=== PATIENT | female | born 1995 | race Caucasian/White ===

== ENCOUNTER → 2023-10-23 | Outpatient (CLI) | payer OTHER, SELFPAY ==
[2023-10-23 11:54] LABS: Estradiol 58.9 pg/mL; Follicle Stimulating Hormone 5.4 mIU/mL; Free T3 3.1 pg/mL (2.18-3.98); Luteinizing Hormone 18.6 mIU/mL; T4 Free Direct 0.96 ng/dL (0.76-1.46); Thyroid Stim Hormone (TSH) 0.49 uIU/mL (0.358-3.74)
[2023-10-24 04:07] LABS: PROGESTERONE 0.3 ng/mL (.)
== END | disposition home or self-care (01) ==
PROVIDERS: PCP Family Medicine
DX: N92.6 Irregular menstruation, unspecified (principal)
CPT/HCPCS: 36415; 82670; 83001; 83002; 84144; 84439; 84443; 84481

== ENCOUNTER → 2023-10-28 | Outpatient (CLI) | payer OTHER, SELFPAY ==
--- NOTE | 2023-10-28 15:14 | US_ITS ---
STUDY: ULTRASOUND OF THE FEMALE PELVIS - COMPLETE REASON FOR EXAM: Female, 28 years old. IRREGULAR MENSES LMP: August 21, 2023. TECHNIQUE: Transvaginal TECHNICAL QUALITY: Adequate. COMPARISON: None. FINDINGS: The uterus is anteverted and is in a midline position. The uterus measures 7.6 cm x 3.8 cm x 3.1 cm. Normal uterine cervix. The endometrium measures 5.2 mm in thickness, and is hyperechoic. There is no demonstrated endometrial mass. There is no demonstrated myometrial mass. I.U.D. - The patient does not have an I.U.D. The right ovary is visualized. The right ovary measures 3.2 cm x 3.1 cm x 2.5 cm. There is no right ovarian cyst or ovarian mass. There is no visualized right adnexal mass or complex lesion. There is normal arterial and normal venous vascularity. The left ovary is visualized. The left ovary measures 3.4 cm x 3.3 cm x 2.3 cm. There is no left ovarian cyst or ovarian mass. There is no visualized left adnexal mass or complex lesion. There is normal arterial and normal venous vascularity. There is no fluid in the cul-de-sac. US/Transvaginal Non- IMPRESSION: Normal female pelvis. Electronically Signed: Ky Pina MD at 14:01 EDT ,
== END | disposition home or self-care (01) ==
PROVIDERS: PCP Family Medicine
DX: N92.6 Irregular menstruation, unspecified (principal)
CPT/HCPCS: 76830

== ENCOUNTER → 2023-10-31 | Outpatient (CLI) | payer OTHER, SELFPAY ==
[2023-10-31 10:28] LABS: Prolactin 13.3 ng/mL
== END | disposition home or self-care (01) ==
LOC: PAVLAB 09:42
PROVIDERS: PCP Family Medicine
DX: N92.6 Irregular menstruation, unspecified (principal)
CPT/HCPCS: 36415; 84146; 84403

== ENCOUNTER → 2023-11-21 | Outpatient (CLI) | payer OTHER, SELFPAY | END | disposition home or self-care (01) | PROVIDERS: PCP Family Medicine | DX: N92.6 Irregular menstruation, unspecified (principal) | CPT/HCPCS: 36415; 82627; 82626 ==

== ENCOUNTER → 2024-01-07 | Outpatient (CLI) | payer OTHER, SELFPAY ==
[2024-01-07 10:34] LABS: Anion Gap 7 (5-15); BUN 14 mg/dL (7-18); BUN/Creat Ratio 14.8 RATIO (10-20); Calcium,Total 9.2 mg/dL (8.5-10.1); Chloride 105 mmol/L (98-107); Cholesterol 196 mg/dL (200); Creatinine, Serum 0.95 mg/dL (0.55-1.02); EST Glomerular Filtration Rate 76 mL/min (>60); Est Glom Filt Rate - Afr Amer 91 mL/min (>60); Glucose 96 mg/dL (74-106); High Density Lipoprotein 102 mg/dL; Potassium 3.9 mmol/L (3.5-5.1); Sodium Level 137 mmol/L (136-145); Triglycerides 45 mg/dL; Very Low Density Lipoprotein 9 mg/dL (5-40)
[2024-01-10 18:08] LABS: Androstenedione 202 ng/dL (41-262); Insulin Level 7.8 uIU/mL (2.6-24.9); Testosterone Free 2.6 pg/mL (0.0-4.2); Thyroid Peroxidase AB 10 IU/mL (0-34)
[2024-01-11 11:08] LABS: 17-Hydroxyprogesterone 68 ng/dL (.); PROGESTERONE 0.2 ng/mL (.)
== END | disposition home or self-care (01) ==
PROVIDERS: PCP Family Medicine
DX: E88.810 Metabolic syndrome (principal); E04.0 Nontoxic diffuse goiter; N92.6 Irregular menstruation, unspecified; E28.1 Androgen excess
CPT/HCPCS: 36415; 80048; 80061; 82157; 82533; 83498; 83525; 84144; 84402; 86376

== ENCOUNTER 2024-01-16 18:19 | Emergency (ER) | payer OTHER, SELFPAY ==
[2024-01-16 18:19] VITALS: BP 129/89; PULSE 99; RESP 18; TEMP 36.6; O2SAT 100; BMI 26.1
[2024-01-16 19:21] VITALS: BP 120/70; PULSE 64; RESP 16; TEMP 36.9; O2SAT 99
[2024-01-16 19:23] LABS: Mucous, Urine 0 SEEN /hpf (<or=2+)
[2024-01-16 19:54] LABS: Color, Urine Straw (Yellow); Glucose, Dipstick Normal (Normal); Ketone-Dipstick 5 mg/dl (Negative); Leukocyte Esterase-Dipstick 25 /ul (Negative); Nitrite-Dipstick Negative (Negative); Occult Blood-Urine 10 /ul (Negative); Protein-Dipstick 15 mg/dl (Negative); Urine Bilirubin Dipstick Negative (Negative); Urine Clarity Sl. Cloudy (Clear); Urine Urobilinogen Normal (Normal); Urine pH 6.5 (5.0 - 8.0)
[2024-01-16 20:00] VITALS: BP 122/70; PULSE 67; RESP 16; TEMP 36.6; O2SAT 98
[2024-01-16 20:03] LABS: Squamous Epithelial Cells - UA 0-5 SEEN /hpf (5-10)
[2024-01-16 20:04] LABS: Bacteria 1+ /hpf (None Seen); Red Blood Cells-Urine 0-5 SEEN /hpf (0-5); White Blood Cells 5-10 SEEN /hpf (0-5)
[2024-01-16 20:07] LABS: Internal QC Validated? YES +Cl - CLEAR BKGD; Pregnancy, Serum, hCG Quali. NEGATIVE Negative; Record Kit Lot#, Serum Preg. 772476
[2024-01-16] MEDS: Ketorolac 15 MG/ML Vial IV (20:15)
[2024-01-16 20:23] LABS: Absolute Lymphocyte Count 2.18 X10^3/uL (0.83-4.51); Absolute Neutrophil Count 6.8 X10^3/uL (2.0-7.7); Basophil# 0.05 X10^3/uL; Basophil% 0.5 % (0-1); Eosinophil# 0.06 X10^3/uL; Eosinophils% 0.6 % (0-5); Hematocrit 38.5 % (37-47); Hemoglobin 12.8 g/dL (12.0-15.0); Lymphocyte # 2.18 X10^3/ul (0.83-4.51); Lymphocyte % 21.5 % (19-41); Mean Corp Hgb Conc 33.2 g/dL (32-36); Mean Corpuscular Volume 90.4 fL (81-99); Mean Platelet Vol. 9.9 fl (6.2-12.0); Monocyte# 1.05 X10^3/uL; Monocyte% 10.4 % (0-10); NRBC Flagged by Analyzer 0 % (0-5); Neutrophil # 6.76 X10^3/uL (2.7-7.7); Neutrophil % 66.7 % (47-70); Platelet Count 203 K/mm3 (150-450); RBC Distribution Width CV 11.8 % (11.6-14.6); RBC Distribution Width SD 38.9 fl (35.1-43.9); Red Blood Count 4.26 M/mm3 (4.2-5.4); White Blood Count 10.1 K/mm3 (4.4-11.0)
[2024-01-16 20:45] LABS: Anion Gap 6 (5-15); BUN 13 mg/dL (7-18); BUN/Creat Ratio 15.6 RATIO (10-20); Calcium,Total 9.6 mg/dL (8.5-10.1); Chloride 108 mmol/L (98-107); Creatinine, Serum 0.84 mg/dL (0.55-1.02); EST Glomerular Filtration Rate 87 mL/min (>60); Est Glom Filt Rate - Afr Amer 106 mL/min (>60); Estimated Creatinine Clearance 115.03 ml/min; Glucose 84 mg/dL (74-106); Sodium Level 139 mmol/L (136-145)
[2024-01-16] MEDS: Ceftriaxone 1 GM/50 ML BAG IV (21:22)
--- NOTE | 2024-01-16 21:31 | EDS_ITS ---
HPI History of Present Illness Chief Complaint: Complaint Detail of Chief Complaint: Frequency, discomfort and flank pain Informant: patient Onset/Context/Timing Onset: Days (Flank pain started January 13) Context: Sudden Onset Timing: Continuous and Waxes and wanes Quality: Pain Location: Flank Current Severity: Mild Maximum Severity: Severe Worsened by: Movement, walking, Relieved by: Nothing Associated Symptoms Associated Symptoms: Nausea, urinary symptoms, no shaking chills. Narrative Narrative: Patient is a 28-year-old female. She presents with flank pain, discomfort with urination and frequency as well as mild urgency. She denies history of renal or ureterolithiasis. Maternal grandmother had history of kidney stones. Subj ective fever without documented fever. She denies headache, visual, ocular auditory symptoms. She denies upper respiratory tract infectious symptoms. She denies vomiting or diarrhea. Last menses approximately 2 weeks ago. She has no signs or symptoms of . She uses no form of control. She denies vaginal symptoms. Prior similar symptoms: No Recent Illness/Hospitalization: No PFSH PFS Medical History Laceration with foreign body of left index finger without damage to nail, initial encounter Puncture wound without foreign body of left index finger without damage to nail, initial encounter Laceration of left index finger with foreign body Puncture wound of left index finger Home Medications ?Medication ?Instructions ?Recorded ?Last Taken ?Type cephalexin 500 mg capsule 500 mg PO Q6 #40 CAPSULES 01/16/24 Unknown Rx ketorolac 10 mg tablet 10 mg PO Q6H 3 days #12 tabs 01/16/24 Unknown Rx Allergy/AdvReac Type Severity Reaction Status Date / Time No Known Allergies Allergy Verified 01/16/24 18:19 Social History (Updated 01/16/24 @ 21:[address] Tal Brandon MD) household members: spouse Smoking Status: Never smoker ROS ROS ED Constitutional Constitutional ED: Reports chills, fever(s) and subjective; Denies sweats Eyes Eyes: Denies blurry vision, change in vision or diplopia ENT ENT ED: Denies ear pain, rhinorrhea or sore throat Cardiovascular Cardiovascular: Denies chest pain or palpitations Respiratory/Chest Respiratory/Chest: Denies cough, dyspnea or dyspnea on exertion Gastrointestinal Gastrointestinal: Reports nausea; Denies abdominal pain, diarrhea, melena or vomiting Genitourinary Genitourinary ED: Reports urinary frequency and other Details: Urgency and discomfort with urination. ; Denies hematuria Musculoskeletal Musculoskeletal: Reports other Details: Flank pain Integumentary Denies rash Neurologic Neurologic: Denies headache(s) or paresthesias Psychiatric Psychiatric: Denies anxiety or depression Hematologic/Lymphatic Hematologic/Lymphatic: Reports systems reviewed and no addt'l complaints, except as documented Allergic/Immunologic Allergic/Immunologic ED: Denies mouth swelling or tongue swelling EXAM Physical Exam Const Vital Signs: 01/16/24 18:19 01/16/24 19:21 01/16/24 20:00 Temperature 97.9 F 98.5 F 98 F Temperature Source Temporal Oral Oral Pulse Rate 99 64 67 Respiratory Rate 18 16 16 Blood Pressure 129/89 H 120/70 122/70 H Blood Pressure Mean 102 86 87 Pulse Ox 100 99 98 Oxygen Delivery Method Room Air Room Air Room Air Positive well nourished and well developed Constitutional Narrative: Patient appears ill and in discomfort. General Appearance ED: well developed; Negative for cyanotic, diaphoretic or pallor HEENT Reports moist mucous membranes HEENT Narrative: Head is atraumatic and normocephalic. Ears normal. Eyes PERRL and EOMs intact bilaterally General Eye ED: Negative for pale conjunctiva or scleral icterus Neck no lymphadenopathy, supple and no JVD Resp normal respiratory effort and clear to auscultation bilaterally Cardio regular rate, regular rhythm, S1 normal heart sound, S2 normal heart sound and no murmurs GI normal to inspection, nondistended, normoactive bowel sounds, non-distended and no masses; Negative for non-tender or hepatosplenomegaly Palpation: tender epigastric Back/Spine General Back: CVA tenderness bilateral Cervical Spine: Negative for cervical spine tenderness Thoracic Spine / Upper Back: Negative for thoracic spinal tenderness Lumbar Spine / Lower Back: Negative for lumbar spinal tenderness Extremity normal to inspection General Extremety ED: Negative for edema or tenderness General Extremity: Negative for edema Neuro oriented x3 and CN's II-XII intact bilaterally Sensorium / Orientation: alert Psych mental status grossly normal Skin no rashes or lesions noted, no wounds and skin turgor normal General Skin Exam: Negative for jaundice or pallor MDM MDM MDM Narrative Medical decision making narrative: Complicated urinary tract infection, pyelonephritis, need to consider possibility of renal/ureteral lithiasis, pain of unknown etiology. History & Record Review Discussion w/independent historian: Significant other Lab Data Attestation: I reviewed the patient's lab results. Lab results narrative: White count is upper end of normal with no shift. Electrolyte panel is normal. Serum test is normal. Urine is cloudy with positive proteins, ketones, occult blood and leukoesterase. There is 5-10 WBCs with 1+ bacteria. Labs: Laboratory Results - last 24 hr 01/16/24 19:10 WBC 10.1 RBC 4.26 Hgb 12.8 Hct 38.5 MCV 90.4 MCH 30.0 MCHC 33.2 RDW Std Deviation 38.9 RDW Coeff of Reese 11.8 Plt Count 203 MPV 9.9 Immature Gran % (Auto) 0.300 Neut % (Auto) 66.7 Lymph % (Auto) 21.5 Cocke % (Auto) 10.4 H Eos % (Auto) 0.6 Baso % (Auto) 0.5 Absolute Neuts (auto) 6.8 Absolute Lymphs (auto) 2.18 Nucleated RBC % 0 Sodium 139 Potassium 4.0 Chloride 108 H Carbon Dioxide 25.0 Anion Gap 6 BUN 13 Creatinine 0.84 Estim Creat Clear Calc 115.03 Est GFR (MDRD) Af Amer 106 Est GFR (MDRD) Non-Af 87 BUN/Creatinine Ratio 15.6 Glucose 84 Calcium 9.6 Serum , Qual NEGATIVE Urine Color Straw Urine Clarity Sl. Cloudy Urine pH 6.5 Ur Specific [place] 1.010 Urine Protein 15 H Urine Glucose (UA) Normal Urine Ketones 5 H Urine Occult Blood 10 H Urine Nitrite Negative Urine Bilirubin Negative Urine Urobilinogen Normal Ur Leukocyte Esterase 25 H Urine RBC 0-5 SEEN Urine WBC 5-10 SEEN Ur Squamous Epith Cells 0-5 SEEN Urine Bacteria 1+ Urine Mucus 0 SEEN Treatment and Re-Evaluation :: Patient's pain was treated with Toradol with marked improvement. She received 1 g of Rocephin. Clinically she has pyelonephritis. Urine culture was sent. She was discharged home with prescription for cephalexin for 10 days and Toradol for her pain since it is managed her pain. Discharge Plan Triage Chief Complaint: Complaint Other Complaint: Back ED Provider: Regina Brandono Dx/Rx/DC Orders Clinical Impression: Acute bacterial pyelonephritis, Nausea, Acute flank pain, Ketosis Instructions: ED Pyelonephritis, Female (Adult) Prescriptions: New cephalexin 500 mg capsule 500 mg PO Q6 Qty: 40 0RF ketorolac 10 mg tablet 10 mg PO Q6H 3 Days Qty: 12 0RF Primary Care Provider: Miguel A Pappas Referrals: Miguel A Pappas MD [Primary Care Provider] - 3-5 Days Print Language: Guinean Disposition Disposition: Home, Self Care
[2024-01-16 22:00] VITALS: BP 118/76; PULSE 69; RESP 18; TEMP 36.8; O2SAT 99
== END 2024-01-16 22:09 | disposition home or self-care (01) ==
PROVIDERS: Emergency Provider Emergency Medicine; PCP Family Medicine; Visit Provider Emergency Medicine
DX: N10 Acute pyelonephritis (principal); E88.89 Other specified metabolic disorders; R11.0 Nausea; R10.9 Unspecified abdominal pain
CPT/HCPCS: 80048; 81001; 84703; 85025; 87077; 87086; 87088; 87186; 96365; 96375; 99284; J7050; A4216

== ENCOUNTER → 2024-04-20 | Outpatient (CLI) | payer OTHER, SELFPAY ==
[2024-04-20 17:11] LABS: hCG Titer Quant., Serum 109 mIU/mL (1-3)
[2024-04-22 08:13] LABS: PROGESTERONE 11.4 ng/mL (.)
== END | disposition home or self-care (01) ==
LOC: LAB 16:08
PROVIDERS: PCP Family Medicine
DX: N91.2 Amenorrhea, unspecified (principal)
CPT/HCPCS: 36415; 84144; 84702

== ENCOUNTER → 2024-04-23 | Outpatient (CLI) | payer OTHER, SELFPAY ==
[2024-04-23 10:32] LABS: hCG Titer Quant., Serum 346 mIU/mL (1-3)
== END | disposition home or self-care (01) ==
PROVIDERS: PCP Family Medicine
DX: N92.6 Irregular menstruation, unspecified (principal)
CPT/HCPCS: 36415; 84702

== ENCOUNTER 2024-05-04 08:46 | Outpatient (RCR) | payer OTHER, SELFPAY ==
[2024-04-27 10:48] LABS: hCG Titer Quant., Serum 2206 mIU/mL (1-3)
[2024-05-04 09:43] LABS: hCG Titer Quant., Serum 24000 mIU/mL (1-3)
== END 2024-05-16 18:00 | disposition home or self-care (01) ==
LOC: LAB 08:46
PROVIDERS: PCP Family Medicine
DX: N92.6 Irregular menstruation, unspecified (principal)
CPT/HCPCS: 36415; 84702

== ENCOUNTER → 2024-05-25 | Outpatient (CLI) | payer OTHER, SELFPAY ==
--- NOTE | 2024-05-25 15:46 | US_ITS ---
STUDY: FIRST TRIMESTER OBSTETRICAL ULTRASOUND REASON FOR EXAM: Female, 28 years old POSITIVE TEST LMP: TECHNIQUE: Transvaginal TECHNICAL QUALITY: Adequate. PRIOR ULTRASOUND: None. FINDINGS: There is visualization of a single gestational sac in a normal intrauterine position. The mean sac diameter (MSD) measures 3.8 cm, indicating an estimated gestational age (EGA) of 9 weeks, 1 days. The gestational sac shape is within normal limits. There is a visualized yolk sac. The yolk sac measures 5 mm. The placenta is non-visualized. There is visualization of a live embryo. The crown-rump length (CRL) measures 2.2 cm, indicating an estimated gestational age (EGA) of 8 weeks, 5 days. There is demonstrated cardiac activity with a heart rate of 177 bpm. The estimated gestation age (EGA) by US is 9 weeks, 0 days. The estimated date of delivery (CHAVA) by US is December 28, 2024. The uterus measures 12.6 x 7 x 6.1 cm. There is no demonstrated uterine fibroid. The cervix is closed. The right ovary measures 3.1 x 2.7 x 2.1 cm. There is no right ovarian cyst. There is no visualized right adnexal mass or complex lesion. The left ovary measures 3.1 x 2.8 x 2.1 cm. There is no left ovarian cyst. There is no visualized left adnexal mass or complex lesion. There is no fluid in the cul de sac. Incidental finding of questionable tiny cystic area in the umbilical cord measuring 6 x 7 mm of uncertain clinical significance. Recommend correlation and follow-up studies later in to assess for interval change US/Transvaginal w/Preg US IMPRESSION: Viable intrauterine gestation approximately 9 weeks gestational age. Question tiny cystic lesion in the umbilical cord of uncertain clinical significance Electronically Signed: Tip Madsen MD at 22:18 EST ,
== END | disposition home or self-care (01) ==
PROVIDERS: PCP Family Medicine
DX: N92.6 Irregular menstruation, unspecified (principal); Z32.01 Encounter for pregnancy test, result positive
CPT/HCPCS: 76817

== ENCOUNTER → 2024-07-29 | Outpatient (CLI) | payer OTHER, SELFPAY ==
[2024-07-29 11:36] LABS: Absolute Lymphocyte Count 1.23 X10^3/uL (0.83-4.51); Absolute Neutrophil Count 7.6 X10^3/uL (2.0-7.7); Basophil# 0.05 X10^3/uL; Basophil% 0.5 % (0-1); Eosinophil# 0.03 X10^3/uL; Eosinophils% 0.3 % (0-5); Hematocrit 36.5 % (37-47); Hemoglobin 12.1 g/dL (12.0-15.0); Lymphocyte # 1.23 X10^3/ul (0.83-4.51); Mean Corp Hgb Conc 33.2 g/dL (32-36); Mean Corpuscular Hgb 29.9 pg (27.0-32.0); Mean Corpuscular Volume 90.1 fL (81-99); Mean Platelet Vol. 9.7 fl (6.2-12.0); Monocyte# 0.52 X10^3/uL; Monocyte% 5.5 % (0-10); NRBC Flagged by Analyzer 0 % (0-5); Neutrophil # 7.59 X10^3/uL (2.7-7.7); Neutrophil % 80.3 % (47-70); Platelet Count 217 K/mm3 (150-450); RBC Distribution Width CV 12.7 % (11.6-14.6); RBC Distribution Width SD 41.4 fl (35.1-43.9); Red Blood Count 4.05 M/mm3 (4.2-5.4); White Blood Count 9.5 K/mm3 (4.4-11.0)
[2024-07-29 19:54] LABS: Hepatitis B Surface Antigen Non-Reactive (Nonreactive); Hepatitis C Antibody Non-Reactive (Nonreactive); Rubella IgG Reactive (Nonreactive)
[2024-07-30 08:23] LABS: Syphilis Antibodies Reactive
[2024-07-31 06:08] LABS: Chlamydia By Nucleic Acid AMP Negative (Negative); Gonococcus By Nucleic Acid AMP Negative (Negative)
[2024-08-04 16:16] LABS: HIV - WCH Non-Reactive (Nonreactive)
== END | disposition home or self-care (01) ==
PROVIDERS: PCP Family Medicine; Referring Provider Obstetrics & Gynecology; Visit Provider Obstetrics & Gynecology
DX: Z34.00 Encounter for supervision of normal first pregnancy, unspecified trimester (principal)
CPT/HCPCS: 36415; 85025; 86703; 86762; 86780; 86803; 86850; 86900; 86901; 87086; 87088; 87340; 87491; 87591

== ENCOUNTER → 2024-08-10 | Outpatient (CLI) | payer OTHER, SELFPAY ==
--- NOTE | 2024-08-10 15:31 | US_ITS ---
PROCEDURE: ultrasound. REASON FOR EXAM: anatomy. COMPARISON: Report 05/25/2024, images not available. FINDINGS Included maternal urinary bladder unremarkable. Cervical length is 4.5 cm. There is some fluid echogenicity within the cervix, with some minimal funneling of the internal os. The placenta is anterior, without retroplacental fluid collection or placenta previa. Amniotic fluid level appears within normal limits, with maximum vertical pocket of 3.5 cm. There is a single live intrauterine gestation in breech presentation. heart rate 148 beats per minute. Visualized intracranial and intra-abdominal structures are grossly unremarkable. Lateral ventricle diameter at 6 mm. Biparietal diameter 4.2 cm, at the 9th percentile. Head circumference 16.4 cm, at the 9th percentile. Abdominal circumference 13.9 cm, at the 22nd percentile. Femur length 2.9 cm, at the 12th percentile. Estimated weight 275 g +/-41 g, at the 10th percentile. Facial features are grossly intact. Visualized extremities unremarkable. There appears to be a four-chamber heart and three-vessel cord. cord insertion is unremarkable. Maternal adnexal regions unremarkable. The ovaries are not demonstrated. US/OB Anatomy w/ Transvaginal IMPRESSION: Single live intrauterine gestation with estimated gestational age 19 weeks, 1 d ays. Estimated date of confinement 01/03/2025. No gross anomalies are demonstrated. Amniotic fluid level appears within normal limits. Cervical length is 4.5 cm. The cervix contains a small amount of fluid, with s ome minimal funneling of the internal cervical os. No evidence of placenta previa. Reading Location: [facility]
== END | disposition home or self-care (01) ==
LOC: US 15:29
PROVIDERS: PCP Family Medicine; Referring Provider Obstetrics & Gynecology; Visit Provider Obstetrics & Gynecology
DX: Z34.02 Encounter for supervision of normal first pregnancy, second trimester (principal)
CPT/HCPCS: 76805; 76817

== ENCOUNTER → 2024-08-25 | Outpatient (CLI) | payer OTHER, SELFPAY ==
--- NOTE | 2024-08-25 16:10 | US_ITS ---
PROCEDURE: TRANSVAGINAL W/PREG US REASON FOR EXAM: CHECK CERVICAL LENGTH, FUNNELING TO CONFIRM STABLE COMPARISON: Comparison is made with prior study dated August 10, 2024. FINDINGS Number: 1 Position: Breech Placental Position: Anterior and not low-lying. Placental Abnormalities: None. Cardiac Motion: 150 beats per minute (average) MATERNAL ANATOMY: Adnexa: Neither maternal ovary is successfully identified. Cervical Length (if measured): 4.5 cm. There is some fluid seen in the cervix. There is some funneling of the cervix. It measures 3 mm in transverse dimension. US/Transvaginal w/Preg US IMPRESSION: The cervical length is 4.5 cm. There is some funneling of the cervix. Fluid i s seen within it. The cervix measures 3 mm in transverse dimension. Reading Location: [place] [id number]
== END | disposition home or self-care (01) ==
LOC: US 16:09
PROVIDERS: PCP Family Medicine; Referring Provider Obstetrics & Gynecology; Visit Provider Obstetrics & Gynecology
DX: O34.30 Maternal care for cervical incompetence, unspecified trimester (principal); Z3A.00 Weeks of gestation of pregnancy not specified
CPT/HCPCS: 76817

== ENCOUNTER → 2024-09-08 | Outpatient (CLI) | payer OTHER, SELFPAY ==
--- NOTE | 2024-09-08 16:25 | US_ITS ---
PROCEDURE: OB LIMITED WITH BIOMETRICS 09/08/2024 REASON FOR EXAM: 4 WEEK GROWTH TECHNIQUE: Transabdominal obstetric ultrasound performed for biometry. COMPARISON: 08/25/2024 transvaginal ultrasound and anatomy ultrasound 08/10/2024 FINDINGS Transabdominal imaging. Single live intrauterine with cardiac activity seen at 141 beats per minute. Presentation is again breech. The cervix currently transabdominally measures 3.2 cm and overall appears closed however this is not as well seen on the preceding transvaginal imaging of 08/25/2024 at which time the cervix was measured at a length of 4.5 cm with appearance of some funneling. Consider short-term follow-up transvaginal repeat imaging. Adnexa not visualized. Maximum vertical pocket 4.4 cm Anterior grade 0 placenta appears within limits. DIMENSIONS: Biparietal Diameter: 5.6 cm/22 weeks 6 days Head Circumference: 27.6 cm/23 weeks 5 days Abdominal Circumference: 19.3 cm/24 weeks 0 days Femur Length: 4.2 cm/23 weeks 3 days FL/AC 20%, FL/BPD 75%, FL/HC 19%, CI 72%, HC/AC 1.12 ESTIMATED WEIGHT: 622 g +/-93 g ESTIMATED WEIGHT PERCENTILE (24+ weeks): 24% Estimated age by current ultrasound 23 weeks 4 days, CHAVA 01/01/2025 age by LMP 24 weeks 1 day, CHAVA 12/28/2024. US/OB Limited With Biometrics IMPRESSION: Single live intrauterine at estimated ultrasound age of 23 weeks and 4 days with biometrics as above. There is appropriate appearing interval growth. The cervix currently transabdominally measures 3.2 cm and overall appears close d however this is not as well seen on the preceding transvaginal imaging of 08/25/2024 at which time the cervix was measu red at a length of 4.5 cm with appearance of some funneling. Consider short-term follow-up transvaginal repeat imaging. Presentation is again breech. Reading Location: [id number]
== END | disposition home or self-care (01) ==
PROVIDERS: PCP Family Medicine; Referring Provider Obstetrics & Gynecology; Visit Provider Obstetrics & Gynecology
DX: Z34.01 Encounter for supervision of normal first pregnancy, first trimester (principal)
CPT/HCPCS: 76816

== ENCOUNTER → 2024-09-19 | Outpatient (CLI) | payer OTHER, SELFPAY ==
[2024-09-19 08:39] LABS: Glucose Challenge Gest 1H 50g 92 mg/dL (70-140)
[2024-09-19 09:09] LABS: Absolute Lymphocyte Count 1.55 X10^3/uL (0.83-4.51); Absolute Neutrophil Count 6.7 X10^3/uL (2.0-7.7); Basophil# 0.02 X10^3/uL; Basophil% 0.2 % (0-1); Eosinophil# 0.08 X10^3/uL; Eosinophils% 0.9 % (0-5); Hematocrit 33.8 % (37-47); Hemoglobin 11.6 g/dL (12.0-15.0); Lymphocyte # 1.55 X10^3/ul (0.83-4.51); Lymphocyte % 17.4 % (19-41); Mean Corp Hgb Conc 34.3 g/dL (32-36); Mean Corpuscular Hgb 31.9 pg (27.0-32.0); Mean Corpuscular Volume 92.9 fL (81-99); Mean Platelet Vol. 9.8 fl (6.2-12.0); Monocyte# 0.51 X10^3/uL; Monocyte% 5.7 % (0-10); NRBC Flagged by Analyzer 0 % (0-5); Neutrophil # 6.72 X10^3/uL (2.7-7.7); Neutrophil % 75.2 % (47-70); Platelet Count 207 K/mm3 (150-450); RBC Distribution Width CV 12.7 % (11.6-14.6); RBC Distribution Width SD 43.4 fl (35.1-43.9); Red Blood Count 3.64 M/mm3 (4.2-5.4); White Blood Count 8.9 K/mm3 (4.4-11.0)
== END | disposition home or self-care (01) ==
LOC: LAB 07:02
PROVIDERS: PCP Family Medicine; Referring Provider Obstetrics & Gynecology; Visit Provider Obstetrics & Gynecology
DX: Z34.00 Encounter for supervision of normal first pregnancy, unspecified trimester (principal)
CPT/HCPCS: 36415; 82950; 85025

== ENCOUNTER → 2024-10-06 | Outpatient (CLI) | payer OTHER, SELFPAY ==
--- NOTE | 2024-10-06 16:20 | US_ITS ---
PROCEDURE: OB LIMITED WITH BIOMETRICS 10/06/2024 REASON FOR EXAM: GROWTH US, CHECK CERVICAL LENGTH TECHNIQUE: High resolution obstetric ultrasound performed using a 2D transducer. Standard views obtained, including biometry, anatomy survey, and Doppler studies. COMPARISON: Prior study dated September 08, 2024. FINDINGS Number: 1 Position: Vertex Placental Position: Anterior and not low-lying. Placental Abnormalities: No evidence of previa. DIMENSIONS: Biparietal Diameter: 6.68 cm: 26 weeks and 6 days: 8 percentile/ Head Circumference: 26.22 cm: 28 weeks and 4 days: 30 percentile./ Abdominal Circumference: 23.12 cm: 27 weeks and 3 days: 23rd percentile/ Femur Length: 5.12 cm: 27 weeks and 3 days: 17 percentile/ ESTIMATED WEIGHT: 1076 g plus/-161 g ESTIMATED WEIGHT PERCENTILE (24+ weeks): 17 ESTIMATED GESTATIONAL AGE: Baseline: 28 weeks and 1 day By Ultrasound: December 28, 2024 ESTIMATED DATE OF DELIVERY: Baseline: 27 weeks and 6 days By Ultrasound: December 30, 2024 BIOPHYSICAL ASSESSMENT: Amniotic Fluid Volume: 5.5 cm Amniotic Fluid Index: 14.5 cm (8-24 cm normal range) Cardiac Motion: 160 beats per minute (average) Trunk and Limb Motion: Present. MATERNAL ANATOMY: Adnexa: Neither maternal ovary is successfully identified. Cervical Length (if measured): 3.8 cm. A small amount of fluid is seen within the endocervical canal. The canal measures 0.45 cm. US/OB Limited With Biometrics IMPRESSION: Single live intrauterine gestation with a mean gestational age of 27 weeks and 6 days. A small amount of fluid is seen within the endocervical canal. The cervix is d ilated measuring 4.5 mm. Cervical length measures 3.8 cm. Reading Location: [facility]
== END | disposition home or self-care (01) ==
LOC: US 16:19
PROVIDERS: PCP Family Medicine; Referring Provider Nurse Practitioner Women's Health; Visit Provider Nurse Practitioner Women's Health
DX: O34.32 Maternal care for cervical incompetence, second trimester (principal); Z3A.26 26 weeks gestation of pregnancy
CPT/HCPCS: 76816

== ENCOUNTER → 2024-11-30 | Outpatient (CLI) | payer OTHER, SELFPAY | END | disposition home or self-care (01) | LOC: LABSPEC 16:36 | PROVIDERS: PCP Family Medicine; Referring Provider Advanced Practice Midwife; Visit Provider Advanced Practice Midwife | DX: Z34.03 Encounter for supervision of normal first pregnancy, third trimester (principal); Z3A.36 36 weeks gestation of pregnancy | CPT/HCPCS: 87081 ==

== ENCOUNTER → 2024-12-23 | Outpatient (CLI) | payer OTHER, SELFPAY ==
--- NOTE | 2024-12-23 17:53 | US_ITS ---
PROCEDURE: OB LIMITED WITH BIOMETRICS 12/23/2024 REASON FOR EXAM: GROWTH TECHNIQUE: OB LIMITED WITH BIOMETRICS COMPARISON: Prior study dated October 06, 2024. FINDINGS LMP: March 23, 2024. Number: 1 Position: Vertex Placental Position: Anterior and not low-lying. Placental Abnormalities: No evidence of previa. DIMENSIONS: Biparietal Diameter: 8.74 cm: 35 weeks and 2 days: 3 percentile/ Head Circumference: 33.13 cm: 37 weeks and 5 days: 11 percentile/ Abdominal Circumference: 33.65 cm: 37 weeks and 4 days: 25th percentile/ Femur Length: 7.1 cm: 36 weeks and 3 days: 4th percentile/ ESTIMATED WEIGHT: 3083 g plus/-462 g ESTIMATED WEIGHT PERCENTILE (24+ weeks): 19 ESTIMATED GESTATIONAL AGE: Baseline: 39 weeks and 2 days By Ultrasound: 36 weeks and 5 days ESTIMATED DATE OF DELIVERY: Baseline: December 28, 2024 By Ultrasound: January 15, 2025 BIOPHYSICAL ASSESSMENT: Amniotic Fluid Volume: 5.1 cm Amniotic Fluid Index: 12.2 cm (8-24 cm normal range) Cardiac Motion: 136 beats per minute (average) Trunk and Limb Motion: Present. MATERNAL ANATOMY: Adnexa: Neither maternal ovary is successfully identified. Single live intrauterine gestation with a mean gestational age of 39 weeks. The measurements obtained today fall within lower limits of normal. US/OB Limited With Biometrics IMPRESSION: Single live intrauterine gestation with a mean gestational age of 39 weeks. Th e measurements obtained today fall within lower limits of normal. Reading Location: [facility]
== END | disposition home or self-care (01) ==
PROVIDERS: PCP Family Medicine; Referring Provider Obstetrics & Gynecology; Visit Provider Obstetrics & Gynecology
DX: Z34.93 Encounter for supervision of normal pregnancy, unspecified, third trimester (principal)
CPT/HCPCS: 76816

== ENCOUNTER 2025-01-04 07:16 | Inpatient (IN) | payer OTHER, SELFPAY ==
[2025-01-04] VITALS (53 sets, daily range): BP systolic 101–142; BP diastolic 55–77; PULSE 65–104; RESP 16–20; TEMP 36.4–37.5; O2SAT 80–100; BMI 28.2
--- OUTSIDE RECORDS SUMMARY | 2025-01-04 07:18 | XMS RPT_ITS | CCD ---
Author Organization [facility] Care Team Providers Care Complaint Operator Name Role Phone Jose Luis HANNAH, Cash Chu Unavailable [phone] Elyse HANNAH, Dr. Grady Primary Care Provider RAJ SCHMITT Attending Provider RAJ SCHMITT Referring Provider [phone] Miguel A Pappas MD Referring Provider Dr. Katelin Lazcano MD Attending Provider [phone] Dr. Katelin Lazcano MD Referring Provider Dr. Miguel A Pappas MD Primary Care Provider RAJ SCHMITT Attending Provider RAJ SCHMITT Referring Provider Dr. Miguel A Pappas MD Referring Provider Dr. Katelin Lazcano MD Attending Provider Dr. Katelin Lazcano MD Referring Provider Dr. Namita Garcia DO Attending Provider Dr. Namita Garcia DO Referring Provider Dr. Miguel A Pappas MD Primary Care Provider Melinda Sales Attending Provider [phone] Juancarlos RAGSDALE-CMelinda Referring Provider [phone] Gaby Reynolds CNM Attending Provider [phone] Dr. Miguel A Pappas MD Primary Care Provider Dr. Katelin Lazcano MD Attending Provider Jaleesa HANNAH, Dr. Thomason Referring Provider [phone] Elyse HANNAH, Dr. Grady Referring Provider Gaby Reynolds CNM Referring Provider [phone] Elyse HANNAH, Dr. Grady Primary Care Provider Jaleesa HANNAH, Dr. Thomason Attending Provider [phone] Jaleesa HANNAH, Dr. Thomason Referring Provider Elyse HANNAH, Dr. Grady Primary Care Provider Jaleesa HANNAH, Dr. Thomason Attending Provider [phone] Jaleesa HANNAH, Dr. Thomason Referring Provider Yash Gray DO, Dr. Breaux Attending Provider Elyse HANNAH, Dr. Grady Referring Provider Namita Garcia Admitting Unavailabl e Namita Garcia Attending Unavailabl e Elyse, Migue La Primary Care Unavailable Elyse, Miguel A Primary Care Unavailable Marcanthony, Katelin Referring Unavailable Coryanthony, Katelin Attending Unavailable TARNOWSKI Referring Unavailable TARNOWSKI Attending Unavailable Elyse, Miguel A Primary Care Unavailable Elyse, Miguel A Referring Unavailable Elyse, Miguel A Primary Care Unavailable Juancarlos CROP DUSTER, Melinda Attending Unavailable Alanna Mccall Attending Unavailable Elyse, Miguel A Referring Unavailable Elyse, Miguel A Primary Care Unavailable Elyse, Miguel A Referring Unavailable Elyse, Miguel A Primary Care Unavailable Marcanthony, Katelin Attending Unavailable Namita Garcia Attending Unavailabl e Elyse, Miguel A Referring Unavailable Elyse, Miguel A Primary Care Unavailable Marcanthony, Katelin Referring Unavailable Marcanthony, Katelin Attending Unavailable Elyse, Miguel A Primary Care Unavailable Elyse, Miguel A Primary Care Unavailable Juancarlos CROP DUSTER, Melinda Attending Unavailable Juancarlos CROP DUSTER, Melinda Referring Unavailable TARNOWSKI Attending Unavailable TARNOWSKI Referring Unavailable Elyse, Miguel A Primary Care Unavailable Elyse, Miguel A Referring Unavailable Elyse, Miguel A Primary Care Unavailable Gaby Reynolds Attending Unavailable Elyse, Miguel A Referring Unavailable Marcanthony, Katelin Attending Unavailable Elyse, Miguel A Primary Care Unavailable Vande Velde, Namita Attending Unavailabl e Elyse, Miguel A Referring Unavailable Elyse, Miguel A Primary Care Unavailable Elyse, Miguel A Referring Unavailable Elyse, Miguel A Primary Care Unavailable Juancarlos CROP DUSTERMelinda Attending Unavailable Elyse, Miguel A Referring Unavailable Elyse, Miguel A Primary Care Unavailable Juancarlos CROP DUSTERMelinda Attending Unavailable TARNOWSKI Referring Unavailable Elyse, Miguel A Primary Care Unavailable VONNIE Attending Unavailable VONNIE Referring Unavailable VONNIE Attending Unavailable Elyse, Miguel A Primary Care Unavailable TARNOWSKI Referring Unavailable TARNOYOSELINKI Attending Unavailable Elyse, Miguel A Primary Care Unavailable Elyse, Miguel A Primary Care Unavailable Gaby Reynolds Attending Unavailable Gaby Reynolds Referring Unavailable TARRACHEL Referring Unavailable VONNIE Attending Unavailable Elyse, Miguel A Primary Care Unavailable Elyse, Miguel A Referring Unavailable Elyse, Miguel A Primary Care Unavailable Katelin Lazcano Attending Unavailable Elyse, Miguel A Referring Unavailable Elyse, Miguel A Primary Care Unavailable Gaby Reynolds Attending Unavailable Elyse, Miguel A Referring Unavailable Elyse, Miguel A Primary Care Unavailable Gaby Reynolds Attending Unavailable Katelin Lazcano Referring Unavailable MonicoonyKatelin Attending Unavailable Elyse, Miguel A Primary Care Unavailable MonicoonyLandonon Referring Unavailable MonicoonyKatelin Attending Unavailable Elyse, Miguel A Primary Care Unavailable MonicoonyLandonon Referring Unavailable MonicoonyKatelin Attending Unavailable Elyse, Miguel A Primary Care Unavailable Namita Garcia Attending Unavailabl e Namita Garcia Referring Unavailabl e Elyse, Miguel A Primary Care Unavailable Tal Brandon Attending Unavailable Elyse, Miguel A Primary Care Unavailable Medications Current Medications Medication Drug Class(es) Dates Sig (Normalized) Sig (Original) Pnv No.549-Fp-La4-Dha-Ep a-Fish 400 mcg-35 mg- 25 mg-5 mg tablet,chewable (13 sources) Start: 07-28-2024 Pnv No.552-We-Fc9-Dha-E pa-Fish 400 mcg-35 mg- 25 mg-5 mg tablet,chewable Active {tbl} PO July 28, 2024 1:00am Start: 07-28-2024 Pnv No.153-Fa- Tk9-Auv-Ufl-Fish 400 mcg-35 mg- 25 mg-5 mg tablet,chewable Active {tbl} PO July 28, 2024 12:00am Completed/Discontinued Medications Medication Drug Class(es) Dates Sig (Normalized) Sig (Original) cephalexin 500 mg oral capsule (13 sources) Cephalosporin Antibacterial Start: 01-16-2024 End: 07-28-2024 take 1 capsule by mouth every six hours Cephalexin 500 mg capsule Discontinued 500 mg PO EVERY 6 HOURS 40 0 January 16, 2024 12:00am July 28, 2024 10:58am ketorolac tromethamine 10 mg oral tablet (13 sources) Nonsteroidal Anti-inflammatory Drug, Cyclooxygenase Inhibitor Start: 01-16-2024 End: 07-28-2024 take 1 tablet by mouth every six hours Ketorolac 10 mg tablet Discontinued 10 mg PO EVERY 6 HOURS 12 3 0 January 16, 2024 12:00am July 28, 2024 10:58am Problems Active Problems Problem Classification Problem Date Documented Date Episodic/Chronic Abdominal pain (13 sources) Flank pain; Translations: [Unspecified abdominal pain] 01-24-2024 Episodic Immunizations and screening for infectious disease (20 sources) Syphilis test finding; Translations: [Other specified abnormal immunological findings in serum] Onset: 12-17-2024 09-24-2024 Episodic Comment on above: confirmatory negativ e Menstrual disorders (2 sources) Irregular menstruation, unspecified; Translations: [Amenorrhea, unspecified] Onset: 05-09-2024 Chronic Nausea and vomiting (13 sources) Nausea; Translations: [Nausea] 01-24-2024 Episodic Open wounds of extremities (20 sources) Laceration of finger with foreign body; Translations: [Laceration with foreign body of left index finger without damage to nail, initial encounter] 07-28-2024 Episodic Other complications of (20 sources) Maternal care for cervical incompetence, unspecified trimester; Translations: [Cervical funneling affecting ] Onset: 10-12-2024 08-11-2024 Episodic Comment on above: stable. Other complications of (1 source) Maternal care for cervical incompetence, second trimester; Translations: [Maternal care for cervical incompetence, second trimester] Onset: 12-17-2024 Episodic Other complications of (1 source) Uterine size-date discrepancy, unspecified trimester; Translations: [Uterine size-date discrepancy, unspecified trimester] Onset: 12-17-2024 Episodic Other nutritional; endocrine; and metabolic disorders (13 sources) Ketosis; Translations: [Other specified metabolic disorders] 01-24-2024 Chronic Other nutritional; endocrine; and metabolic disorders (1 source) Metabolic syndrome; Translations: [Metabolic syndrome] Onset: 02-28-2024 Chronic Other and delivery including normal (20 sources) Normal ; Translations: [Encounter for supervision of normal first , unspecified trimester] Onset: 08-21-2024 07-28-2024 Episodic Comment on above: , CHAVA 12/28/24. H uselaina Warren declined genetic & c arrier testing, afp screening. [id number], CHAVA 12/28/24 . Kelvin [id number], CHAVA 12/28/24 Sushma. Kelvin GBS neg, declined ge netic & carrier testing, afp screening. Residual codes; unclassified (20 sources) Family history of malignant neoplasm of ovary; Translations: [Family history of malignant neoplasm of ovary] 07-28-2024 Episodic Comment on above: Maternal Grandmother Residual codes; unclassified (20 sources) Infertile 07-28-2024 Episodic Comment on above: 3 years to conceive Residual codes; unclassified (15 sources) FH: Chromosomal anomaly; Translations: [Family history of other congenital malformations, deformations and chromosomal abnormalities] 07-28-2024 Episodic Comment on above: Paternal Aunt Residual codes; unclassified (20 sources) Down's child in family; Translations: [Family history of other congenital malformations, deformations and chromosomal abnormalities] 07-28-2024 Episodic Comment on above: Paternal Aunt Residual codes; unclassified (1 source) Family history of malignant neoplasm of ovary; Translations: [Family history of malignant neoplasm of ovary] Onset: 12-17-2024 Episodic Residual codes; unclassified (1 source) Family history of other congenital malformations, deformations and chromosomal abnormalities; Translations: [Family history of other congenital malformations, deformations and chromosomal abnormalities] Onset: 12-17-2024 Episodic Residual codes; unclassified (1 source) 38 weeks gestation of ; Translations: [38 weeks gestation of ] Onset: 12-17-2024 Episodic Residual codes; unclassified (1 source) 36 weeks gestation of ; Translations: [36 weeks gestation of ] Onset: 11-30-2024 Episodic Residual codes; unclassified (1 source) 34 weeks gestation of ; Translations: [34 weeks gestation of ] Onset: 11-20-2024 Episodic Residual codes; unclassified (1 source) 32 weeks gestation of ; Translations: [32 weeks gestation of ] Onset: 11-06-2024 Episodic Superficial injury; contusion (1 source) Foreign body - finger; Translations: [Superficial foreign body of left index finger, initial encounter] Onset: 07-18-2021 07-18-2021 Episodic Urinary tract infections (13 sources) Acute pyelonephritis; Translations: [Acute pyelonephritis due to bacteria] 01-24-2024 Episodic Past or Other Problems Problem Classification Problem Date Documented Da te Episodic/Chronic Other female genital disorders (1 source) Unspecified condition associated with female genital organs and menstrual cycle; Translations: [Unspecified condition associated with female genital organs and menstrual cycle] Onset: 07-29-2024 Episodic Residual codes; unclassified (1 source) 26 weeks gestation of ; Translations: [26 weeks gestation of ] Onset: 09-24-2024 Episodic Residual codes; unclassified (1 source) 18 weeks gestation of ; Translations: [18 weeks gestation of ] Onset: 07-29-2024 Episodic Unclassified (1 source) Problem Results Test Name Value Interpretation Reference Range Facility Laboratory - Chemistry and C hemistry - challengeOrdered By: Katelin Lazcano on 12-25-2024 Glucose Ql (U) Negative [facility] Laboratory - UrinalysisOrder ed By: Katelin Lazcano on 12-25-2024 Protein Ql (U) Negative [facility] Women'S Swim Coach Office Visit Reporton 12-25-2024 Women'S Swim Coach Office Visit Report [facility] [address], [address] [place] [address] OFFICE VISIT Date of Service: 12/25/24 MR#: [id number] Acct: [id number] Name: AIDAN PERAZA Rep #: [id number] : 1995 Provider: Dr. Katelin marie MD Age/Sex: 29/F Location: [place] Status: Signed Intake Vital Signs 11/20/24 08:08 07/03/25 13:12 12/25/24 11:44 Height 5 ft 9 in 5 ft 9 in 5 ft 9 in Weight: 190 lb BMI 28.0 BP 111/69 Intake Visit Reasons: 39wk ob 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: No Is patient in pain?: No Allergies No Known Allergies Allergy (Verified 12/25/24 11:46) Medications ???Medication ???Instructions ???Recorded ???Confirmed ???Type PNV 153-FA 400 mcg-om3 35 mg-dha tab PO 07/28/24 12/25/24 History 25 mg-epa 5 mg-fish oil chew tablet Last Menstrual Period: 05/27/24 Zika: Zika virus screening: Negative : No PFSH PFSH Medical History Laceration with foreign body of left index finger without damage to nail, initial encounter Puncture wound without foreign body of left index finger without damage to nail, initial encounter Laceration of left index finger with foreign body Puncture wound of left index finger Family History Grandmother Cancer Maternal ovarian, colon with metastasis Grandfather Myocardial infarction Maternal-2 VT's Social History adopted: No household members: spouse current occupational status: employed current occupation: [employer] current occupational exposures/hazards: No pets and animals: Yes pets and animals: dog(s) history of recent travel: No sexually active: Yes Smoking Status: Never smoker alcohol intake: never substance use type: does not use well-balanced diet: daily or most days caffeine: No eating out: rarely or never during the past year weight has: remained stable what type of physical activity do you participate in: running, weight training and other details: Kickboxing frequency: 3-4 times per week duration: 45-60 minutes/day john/holiness: Mu-Ism seatbelt use: always do you feel safe at home: Yes 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 OB Visit CHAVA Calculator Estimated Delivery Date Method Current WG Current Estimate 12/28/24 Ultrasound #1 39w 4d Expected Delivery Route/Plan Labor Preferences- CB/BF classes: enc labor support person: Kelvin labor intervention preferences: [] pain management options preferred: limited cut cord/dad catch: yes : yes PP control planned: [] discussed possible routes of delivery and associated risks: [] special requests: [] Specific Issue/Plans Covid status: [] Flu vaccine: [] Tdap vaccine: declines Rhogam: NA LARC form signed: yes Problem list reviewed and updated with the most current plan of care details and appropriate orders placed. Relevant counseling for the gestational age provided. 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 planning hospital delivery 09/24/24 -???-???-???-???-???-???- ???-???-???-???-???-???- 26w 3d 182 lb 6 oz 128/76 Negative -???-???-???-???-???-???- ???-???-???-???-???-???- Negative 137 26 -???-???-???-???-???-???- ???-???-???-???-???-???- -No VB, LO F or CTX. Larc. Ordered growth US and recheck CL. 10/21/24 -???-???-???-???-???-???- ???-???-???-???-???-???- 30w 2d 186 lb 4 oz 112/68 Negative -???-???-???-???-???-???- ???-???-???-???-???-???- Negative 138 30 -??? (more content not included)... Normal [facility] OB Limited With Biometricson 12-23-2024 OB Limited With Biometrics [facility] [address] [place] [address] OB Limited With Biometrics MR#: [id number] Acct: [id number] Name: AIDAN PERAZA Rep #: [id number] : 1995 F 29 From: [place] cer[place] MD PCP: Dr. Miguel A Pappas MD Status: REG CLI Study: OB Limited With Biometrics Date of Exam: 12/23 Exam# [id number] Ordering Dr: Katelin Lazcano PROCEDURE: OB LIMITED WITH BIOMETRICS 12/23/2024 REASON FOR EXAM: GROWTH TECHNIQUE: OB LIMITED WITH BIOMETRICS COMPARISON: Prior study dated October 06, 2024. FINDINGS LMP: March 23, 2024. Number: 1 Position: Vertex Placental Position: Anterior and not low-lying. Placental Abnormalities: No evidence of previa. DIMENSIONS: Biparietal Diameter: 8.74 cm: 35 weeks and 2 days: 3 percentile/ Head Circumference: 33.13 cm: 37 weeks and 5 days: 11 percentile/ Abdominal Circumference: 33.65 cm: 37 weeks and 4 days: 25th percentile/ Femur Length: 7.1 cm: 36 weeks and 3 days: 4th percentile/ ESTIMATED WEIGHT: 3083 g plus/-462 g ESTIMATED WEIGHT PERCENTILE (24+ weeks): 19 ESTIMATED GESTATIONAL AGE: Baseline: 39 weeks and 2 days By Ultrasound: 36 weeks and 5 days ESTIMATED DATE OF DELIVERY: Baseline: December 28, 2024 By Ultrasound: January 15, 2025 BIOPHYSICAL ASSESSMENT: Amniotic Fluid Volume: 5.1 cm Amniotic Fluid Index: 12.2 cm (8-24 cm normal range) Cardiac Motion: 136 beats per minute (average) Trunk and Limb Motion: Present. MATERNAL ANATOMY: Adnexa: Neither maternal ovary is successfully identified. Single live intrauterine gestation with a mean gestational age of 39 weeks. The measurements obtained today fall within lower limits of normal. US/OB Limited With Biometrics IMPRESSION: Single live intrauterine gestation with a mean gestational age of 39 weeks. The measurements obtained today fall within lower limits of normal. Reading Location: [place] [address] CC: Dr. Miguel A Pappas MD; Dr. Katelin Lazcano MD Rfid Technician: Signed Normal [facility] Women'S Swim Coach Office Visit Reporton 12-17-2024 Women'S Swim Coach Office Visit Report [facility] [address], [address] [place] [address] OFFICE VISIT Date of Service: 12/17/24 MR#: [id number] Acct: [id number] Name: AIDAN PERAZA Rep #: [id number] : 1995 Provider: Dr. Katelin marie MD Age/Sex: 29/F Location: [place] Status: Signed Intake Vital Signs 11/20/24 08:08 12/08/24 15:44 12/17/24 13:12 Height 5 ft 9 in 5 ft 9 in 5 ft 9 in Weight: 192 lb BMI 28.3 BP 123/73 H Intake Visit Reasons: 38wk ob 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: No Is patient in pain?: No Allergies No Known Allergies Allergy (Verified 12/17/24 13:11) Medications ???Medication ???Instructions ???Recorded ???Confirmed ???Type PNV 153-FA 400 mcg-om3 35 mg-dha tab PO 07/28/24 12/17/24 History 25 mg-epa 5 mg-fish oil chew tablet Last Menstrual Period: 05/27/24 Zika: Zika virus screening: Negative : No PFSH PFSH Medical History Laceration with foreign body of left index finger without damage to nail, initial encounter Puncture wound without foreign body of left index finger without damage to nail, initial encounter Laceration of left index finger with foreign body Puncture wound of left index finger Family History Grandmother Cancer Maternal ovarian, colon with metastasis Grandfather Myocardial infarction Maternal-2 VT's Social History adopted: No household members: spouse current occupational status: employed current occupation: [employer] current occupational exposures/hazards: No pets and animals: Yes pets and animals: dog(s) history of recent travel: No sexually active: Yes Smoking Status: Never smoker alcohol intake: never substance use type: does not use well-balanced diet: daily or most days caffeine: No eating out: rarely or never during the past year weight has: remained stable what type of physical activity do you participate in: running, weight training and other details: Kickboxing frequency: 3-4 times per week duration: 45-60 minutes/day john/holiness: Mu-Ism seatbelt use: always do you feel safe at home: Yes 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 OB Visit CHAVA Calculator Estimated Delivery Date Method Current Current Estimate 12/28/24 Ultrasound #1 38w 3d Expected Delivery Route/Plan Labor Preferences- CB/BF classes: enc labor support person: Kelvin labor intervention preferences: [] pain management options preferred: limited cut cord/dad catch: yes : yes PP control planned: [] discussed possible routes of delivery and associated risks: [] special requests: [] Specific Issue/Plans Covid status: [] Flu vaccine: [] Tdap vaccine: declines Rhogam: NA LARC form signed: yes Problem list reviewed and updated with the most current plan of care details and appropriate orders placed. Relevant counseling for the gestational age provided. 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 planning hospital delivery 09/24/24 -???-???-???-???-???-???- ???-???-???-???-???-???- 26w 3d 182 lb 6 oz 128/76 Negative -???-???-???-???-???-???- ???-???-???-???-???-???- Negative 137 26 -???-???-???-???-???-???- ???-???-???-???-???-???- MH-No VB, LO F or CTX. Larc. Ordered growth US and recheck CL. 10/21/24 -???-???-???-???-???-???- ???-???-???-???-???-???- 30w 2d 186 lb 4 oz 112/68 Negative -???-???-???-???-???-???- ???-???-???-???-???-???- Negative 138 30 -? (more content not included)... Normal [facility] Laboratory - Chemistry and C hemistry - challengeOrdered By: Melinda Bauer on 12-08-2024 Glucose Ql (U) Negative [facility] Laboratory - UrinalysisOrder ed By: Melinda Bauer on 12-08-2024 Protein Ql (U) Negative [facility] Women'S Swim Coach Office Visit Reporton 12-08-2024 Women'S Swim Coach Office Visit Report [facility] [address], [address] [place] [address] OFFICE VISIT Date of Service: 12/08/24 MR#: [id number] Acct: [id number] Name: AIDAN PERAZA Rep #: [id number] : 1995 Provider: CHANO jyoa Age/Sex: 29/F Location: [facility] Status: Signed Intake Vital Signs 11/20/24 08:08 11/30/24 14:58 12/08/24 15:43 12/08/24 15:44 Height 5 ft 9 in 5 ft 9 in 5 ft 9 in 5 ft 9 in Weight: 191 lb 4 oz BMI 28.2 BP 118/72 Intake Visit Reasons: 37wk ob Chief Complaint: 37 Week OB 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: No Is patient in pain?: No Allergies No Known Allergies Allergy (Verified 12/08/24 15:43) Medications ???Medication ???Instructions ???Recorded ???Confirmed ???Type PNV 153-FA 400 mcg-om3 35 mg-dha tab PO 07/28/24 12/08/24 History 25 mg-epa 5 mg-fish oil chew tablet Last Menstrual Period: 05/27/24 Zika: Zika virus screening: Negative : No PFSH PFSH Medical History Laceration with foreign body of left index finger without damage to nail, initial encounter Puncture wound without foreign body of left index finger without damage to nail, initial encounter Laceration of left index finger with foreign body Puncture wound of left index finger Family History Grandmother Cancer Maternal ovarian, colon with metastasis Grandfather Myocardial infarction Maternal-2 VT's Social History adopted: No household members: spouse current occupational status: employed current occupation: [employer] current occupational exposures/hazards: No pets and animals: Yes pets and animals: dog(s) history of recent travel: No sexually active: Yes Smoking Status: Never smoker alcohol intake: never substance use type: does not use well-balanced diet: daily or most days caffeine: No eating out: rarely or never during the past year weight has: remained stable what type of physical activity do you participate in: running, weight training and other details: Kickboxing frequency: 3-4 times per week duration: 45-60 minutes/day john/holiness: Mu-Ism seatbelt use: always do you feel safe at home: Yes 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 OB Visit CHAVA Calculator Estimated Delivery Date Method Current WG Current Estimate 12/28/24 Ultrasound #1 37w 1d Expected Delivery Route/Plan Labor Preferences- CB/BF classes: enc labor support person: Kelvin labor intervention preferences: [] pain management options preferred: limited cut cord/dad catch: yes : yes PP control planned: [] discussed possible routes of delivery and associated risks: [] special requests: [] Specific Issue/Plans Covid status: [] Flu vaccine: [] Tdap vaccine: declines Rhogam: NA LARC form signed: yes Problem list reviewed and updated with the most current plan of care details and appropriate orders placed. Relevant counseling for the gestational age provided. 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 planning hospital delivery 09/24/24 -???-???-???-???-???-???- ???-???-???-???-???-???- 26w 3d 182 lb 6 oz 128/76 Negative -???-???-???-???-???-???- ???-???-???-???-???-???- Negative 137 26 -???-???-???-???-???-???- ???-???-???-???-???-???- -No VB, LO F or CTX. Larc. Ordered growth US and recheck CL. 10/21/24 -???-???-???-???-???-???- ???-???-???-???-???-???- 30w 2d 186 lb 4 oz 112/68 Negative -???-???-? (more content not included)... Normal [facility] Rule out Beta Strep (Grp. B) on 12-02-2024 LEX Group B Beta Streptococcus is not isolated. Normal [facility] Comment on above: Performed By: #### L [id number] #### [facility] [address] [place], [address] Laboratory - Chemistry and C hemistry - challengeOrdered By: Gaby Reynolds on 11-30-2024 Glucose Ql (U) Negative [facility] Laboratory - UrinalysisOrder ed By: Gaby Reynolds on 11-30-2024 Protein Ql (U) Negative [facility] Women'S Swim Coach Office Visit Reporton 11-30-2024 Women'S Swim Coach Office Visit Report [facility] [address], [address] [place] [address] OFFICE VISIT Date of Service: 11/30/24 MR#: [id number] Acct: [id number] Name: AIDAN PERAZA Rep #: [id number] : 1995 Provider: MINDY Hernandez ams Age/Sex: 29/F Location: [facility] Status: Signed Intake Vital Signs 11/06/24 11:36 11/20/24 08:08 11/30/24 14:58 Height 5 ft 9 in 5 ft 9 in 5 ft 9 in Weight: 191 lb 6 oz BMI 28.2 BP 122/70 H Intake Visit Reasons: 36wk ob Chief Complaint: 36wk OB 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: No Is patient in pain?: No Allergies No Known Allergies Allergy (Verified 11/30/24 14:56) Medications ???Medication ???Instructions ???Recorded ???Confirmed ???Type PNV 153-FA 400 mcg-om3 35 mg-dha tab PO 07/28/24 11/30/24 History 25 mg-epa 5 mg-fish oil chew tablet Last Menstrual Period: 05/27/24 : No Have you fallen in the past year?: No PFSH PFSH Medical History Laceration with foreign body of left index finger without damage to nail, initial encounter Puncture wound without foreign body of left index finger without damage to nail, initial encounter Laceration of left index finger with foreign body Puncture wound of left index finger Family History Grandmother Cancer Maternal ovarian, colon with metastasis Grandfather Myocardial infarction Maternal-2 VT's Social History adopted: No household members: spouse current occupational status: employed current occupation: [employer] current occupational exposures/hazards: No pets and animals: Yes pets and animals: dog(s) history of recent travel: No sexually active: Yes Smoking Status: Never smoker alcohol intake: never substance use type: does not use well-balanced diet: daily or most days caffeine: No eating out: rarely or never during the past year weight has: remained stable what type of physical activity do you participate in: running, weight training and other details: Kickboxing frequency: 3-4 times per week duration: 45-60 minutes/day john/holiness: Mu-Ism seatbelt use: always do you feel safe at home: Yes 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 OB Visit CHAVA Calculator Estimated Delivery Date Method Current WG Current Estimate 12/28/24 Ultrasound #1 36w 0d Expected Delivery Route/Plan Labor Preferences- CB/BF classes: enc labor support person: Kelvin labor intervention preferences: [] pain management options preferred: limited cut cord/dad catch: yes : yes PP control planned: [] discussed possible routes of delivery and associated risks: [] special requests: [] Specific Issue/Plans Covid status: [] Flu vaccine: [] Tdap vaccine: declines Rhogam: NA LARC form signed: yes Problem list reviewed and updated with the most current plan of care details and appropriate orders placed. Relevant counseling for the gestational age provided. Continue routine care and follow up unless otherwise noted in visit notes/problem list details Initial Weight: Not Recorded Date -???-???-???-???-???-???- ???-???-???-???-???-???- EGA Weight BP Urine Prot -???-???-???-???-???-???- ???-???-???-???-???-???- Glucose FHR FuHt Pres Dilation -???-???-???-???-???-???- ???-???-???-???-???-???- Effaced St Visit Note 07/29/24 -???-???-???-???-???-???- ???-???-???-???-???-???- 18w 2d 174 lb 6 oz 124/74 -???-???-???-???-???-???- ???-???-???-???-???-???- 135 -???-???-???-???-???-???- ???-???-???-???-???-???- - jason from 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 planning hospital delivery 09/24/24 -???-???-???-???-???-???- ???-???-???-???-???-???- 26w 3d 182 lb 6 oz 128/76 Negative -???-???-???-???-???-???- ???-???-???-???-???-???- Negative 137 26 -???-???-???-???-???-???- ???-???-???-???-???-???- MH-No VB, LO F or CTX. Larc. Ordered growth US and recheck CL. 10/21/24 -???-???-???-???-???-???- ???-???-???-???-???-???- 30w 2d 186 lb 4 oz 112/68 Negative -???-???-???-???-???-???- ???-???-???-???-???-???- Nega (more content not included)... Normal [facility] Screening beta-hemolytic Str eptococcus cultureOrdered By: Gaby Reynolds on 11-30-2024 Beta-hemolytic Streptococcus culture Group B Beta Streptococcus is not isolated. [facility] Laboratory - Chemistry and C hemistry - challengeOrdered By: Gaby Reynolds on 11-20-2024 Glucose Ql (U) Negative [facility] Laboratory - UrinalysisOrder ed By: Gaby Reynolds on 11-20-2024 Protein Ql (U) Negative [facility] Women'S Swim Coach Office Visit Reporton 11-20-2024 Women'S Swim Coach Office Visit Report [facility] [address], [address] [place] [address] OFFICE VISIT Date of Service: 11/20/24 MR#: [id number] Acct: [id number] Name: AIDAN PERAZA Rep #: [id number] : 1995 Provider: MINDY Hernandez ams Age/Sex: 29/F Location: [facility] Status: Signed Intake Vital Signs 10/21/24 08:19 11/06/24 11:36 11/20/24 08:08 Height 5 ft 9 in 5 ft 9 in 5 ft 9 in Weight: 189 lb 8 oz BMI 28.0 BP 122/68 H Intake Visit Reasons: 34 wk ob Chief Complaint: 34 Week OB 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: No Is patient in pain?: No Allergies No Known Allergies Allergy (Verified 11/20/24 08:11) Medications ???Medication ???Instructions ???Recorded ???Confirmed ???Type PNV 153-FA 400 mcg-om3 35 mg-dha tab PO 07/28/24 11/20/24 History 25 mg-epa 5 mg-fish oil chew tablet Last Menstrual Period: 05/27/24 Zika: Zika virus screening: Negative : No PFSH PFSH Medical History Laceration with foreign body of left index finger without damage to nail, initial encounter Puncture wound without foreign body of left index finger without damage to nail, initial encounter Laceration of left index finger with foreign body Puncture wound of left index finger Family History Grandmother Cancer Maternal ovarian, colon with metastasis Grandfather Myocardial infarction Maternal-2 VT's Social History adopted: No household members: spouse current occupational status: employed current occupation: [employer] current occupational exposures/hazards: No pets and animals: Yes pets and animals: dog(s) history of recent travel: No sexually active: Yes Smoking Status: Never smoker alcohol intake: never substance use type: does not use well-balanced diet: daily or most days caffeine: No eating out: rarely or never during the past year weight has: remained stable what type of physical activity do you participate in: running, weight training and other details: Kickboxing frequency: 3-4 times per week duration: 45-60 minutes/day john/holiness: Mu-Ism seatbelt use: always do you feel safe at home: Yes 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 OB Visit CHAVA Calculator Estimated Delivery Date Method Current WG Current Estimate 12/28/24 Ultrasound #1 34w 4d Expected Delivery Route/Plan Labor Preferences- CB/BF classes: enc labor support person: Kelvin labor intervention preferences: [] pain management options preferred: limited cut cord/dad catch: yes : yes PP control planned: [] discussed possible routes of delivery and associated risks: [] special requests: [] Specific Issue/Plans Covid status: [] Flu vaccine: [] Tdap vaccine: declines Rhogam: NA LARC form signed: yes Problem list reviewed and updated with the most current plan of care details and appropriate orders placed. Relevant counseling for the gestational age provided. 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 planning hospital delivery 09/24/24 -???-???-???-???-???-???- ???-???-???-???-???-???- 26w 3d 182 lb 6 oz 128/76 Negative -???-???-???-???-???-???- ???-???-???-???-???-???- Negative 137 26 -???-???-???-???-???-???- ???-???-???-???-???-???- -No VB, LO F or CTX. Larc. Ordered growth US and recheck CL. 10/21/24 -???-???-???-???-???-???- ???-???-???-???-???-???- 30w 2d 186 lb 4 oz 112/68 Negative -???-???-???-???-???-???- ???-???-? (more content not included)... Normal [facility] Laboratory - Chemistry and C hemistry - challengeOrdered By: Gaby Reynolds on 11-06-2024 Glucose Ql (U) Negative [facility] Laboratory - UrinalysisOrder ed By: Gaby Reynolds on 11-06-2024 Protein Ql (U) Negative [facility] Women'S Swim Coach Office Visit Reporton 11-06-2024 Women'S Swim Coach Office Visit Report [facility] [address], [address] [place] [address] OFFICE VISIT Date of Service: 11/06/24 MR#: [id number] Acct: [id number] Name: AIDAN PERAZA Rep #: [id number] : 1995 Provider: MINDY Hernandez ams Age/Sex: 29/F Location: [facility] Status: Signed Intake Vital Signs 10/21/24 08:19 11/06/24 11:36 Height 5 ft 9 in 5 ft 9 in Weight: 188 lb 2 oz BMI 27.8 BP 130/74 H Intake Visit Reasons: 32 wk ob Chief Complaint: 32wk OB 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: No Is patient in pain?: No Allergies No Known Allergies Allergy (Verified 11/06/24 11:35) Medications ???Medication ???Instructions ???Recorded ???Confirmed ???Type PNV 153-FA 400 mcg-om3 35 mg-dha tab PO 07/28/24 11/06/24 History 25 mg-epa 5 mg-fish oil chew tablet Last Menstrual Period: 05/27/24 : No Have you fallen in the past year?: No PFSH PFSH Medical History Laceration with foreign body of left index finger without damage to nail, initial encounter Puncture wound without foreign body of left index finger without damage to nail, initial encounter Laceration of left index finger with foreign body Puncture wound of left index finger Family History Grandmother Cancer Maternal ovarian, colon with metastasis Grandfather Myocardial infarction Maternal-2 VT's Social History adopted: No household members: spouse current occupational status: employed current occupation: [employer] current occupational exposures/hazards: No pets and animals: Yes pets and animals: dog(s) history of recent travel: No sexually active: Yes Smoking Status: Never smoker alcohol intake: never substance use type: does not use well-balanced diet: daily or most days caffeine: No eating out: rarely or never during the past year weight has: remained stable what type of physical activity do you participate in: running, weight training and other details: Kickboxing frequency: 3-4 times per week duration: 45-60 minutes/day john/holiness: Mu-Ism seatbelt use: always do you feel safe at home: Yes 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 OB Visit CHAVA Calculator Estimated Delivery Date Method Current WG Current Estimate 12/28/24 Ultrasound #1 32w 4d Expected Delivery Route/Plan Labor Preferences- CB/BF classes: enc labor support person: Kelvin labor intervention preferences: [] pain management options preferred: limited cut cord/dad catch: yes : yes PP control planned: [] discussed possible routes of delivery and associated risks: [] special requests: [] Specific Issue/Plans Covid status: [] Flu vaccine: [] Tdap vaccine: declines Rhogam: NA LARC form signed: yes Problem list reviewed and updated with the most current plan of care details and appropriate orders placed. Relevant counseling for the gestational age provided. 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 planning hospital delivery 09/24/24 -???-???-???-???-???-???- ???-???-???-???-???-???- 26w 3d 182 lb 6 oz 128/76 Negative -???-???-???-???-???-???- ???-???-???-???-???-???- Negative 137 26 -???-???-???-???-???-???- ???-???-???-???-???-???- MH-No VB, LO F or CTX. Larc. Ordered growth US and recheck CL. 10/21/24 -???-???-???-???-???-???- ???-???-???-???-???-???- 30w 2d 186 lb 4 oz 112/68 Negative -???-???-???-???-???-???- ???-???-???-???-???-???- Negative 138 30 -???-???-?? (more content not included)... Normal [facility] Laboratory - Chemistry and C hemistry - challengeOrdered By: Melinda Bauer on 10-21-2024 Glucose Ql (U) Negative [facility] Laboratory - UrinalysisOrder ed By: Melinda Bauer on 10-21-2024 Protein Ql (U) Negative [facility] Women'S Swim Coach Office Visit Reporton 10-21-2024 Women'S Swim Coach Office Visit Report [facility], [facility] [address] [place] [address] OFFICE VISIT Date of Service: 10/21/24 MR#: [id number] Acct: [id number] Name: AIDAN PERAZA Rep #: [id number] : 1995 Provider: CHANO joya Age/Sex: 29/F Location: [facility] Status: Signed Intake Vital Signs 09/24/24 11:35 10/21/24 08:19 Height 5 ft 9 in 5 ft 9 in Weight: 186 lb 4 oz BMI 27.5 BP 112/68 Intake Visit Reasons: 30wk ob Chief Complaint: 30 Week OB 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: No Is patient in pain?: No Allergies No Known Allergies Allergy (Verified 10/21/24 08:21) Medications ???Medication ???Instructions ???Recorded ???Confirmed ???Type PNV 153-FA 400 mcg-om3 35 mg-dha tab PO 07/28/24 10/21/24 History 25 mg-epa 5 mg-fish oil chew tablet Last Menstrual Period: 05/27/24 Zika: Zika virus screening: Negative : Yes PFSH [facility] Medical History Laceration with foreign body of left index finger without damage to nail, initial encounter Puncture wound without foreign body of left index finger without damage to nail, initial encounter Laceration of left index finger with foreign body Puncture wound of left index finger Family History Grandmother Cancer Maternal ovarian, colon with metastasis Grandfather Myocardial infarction Maternal-2 VT's Social History adopted: No household members: spouse current occupational status: employed current occupation: [employer] current occupational exposures/hazards: No pets and animals: Yes pets and animals: dog(s) history of recent travel: No sexually active: Yes Smoking Status: Never smoker alcohol intake: never substance use type: does not use well-balanced diet: daily or most days caffeine: No eating out: rarely or never during the past year weight has: remained stable what type of physical activity do you participate in: running, weight training and other details: Kickboxing frequency: 3-4 times per week duration: 45-60 minutes/day john/holiness: Mu-Ism seatbelt use: always do you feel safe at home: Yes additional social history: [employer] @ [employer] History 1 Elective abortions Hx Para 0 Spontaneous abortions Hx # Term Pregnancies Ectopic pregnancies Hx # Pregnancies Multiple births # of living children HPI 30wk ob Details: AIDAN PERAZA is a 29 year old who presents for routine OB visit. OB Visit CHAVA Calculator Estimated Delivery Date Method Current WG Current Estimate 12/28/24 Ultrasound #1 30w 2d Expected Delivery Route/Plan Labor Preferences- CB/BF classes: enc labor support person: Kelvin labor intervention preferences: [] pain management options preferred: limited cut cord/dad catch: yes : yes PP control planned: [] discussed possible routes of delivery and associated risks: [] special requests: [] Specific Issue/Plans Covid status: [] Flu vaccine: [] Tdap vaccine: declines Rhogam: NA LARC form signed: yes Problem list reviewed and updated with the most current plan of care details and appropriate orders placed. Relevant counseling for the gestational age provided. 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 planning hospital delivery 09/24/24 -???-???-???-???-???-???- ???-???-???-???-???-???- 26w 3d 182 lb 6 oz 128/76 Negative -???-???-???-???-???-???- ???-???-???-???-???-???- Negative 137 26 -???-???-???-???-???-???- ???-???-???-???-???-???- MH-No VB, LO F or CTX. Larc. Ordered growth US and recheck CL. 10/21/24 -???-???-???-???-???-???- ???-???-???-???-???-???- 30w 2d 186 lb 4 oz 112/68 Negative -???-???-???-???-???-???- ???-???-???-???-???-???- Negative 13 (more content not included)... Normal [facility] OB Limited With Biometricson 10-06-2024 OB Limited With Biometrics [facility] [place] [address] [address] OB Limited With Biometrics MR#: [id number] Acct: [id number] Name: AIDAN PERAZA Rep #: [id number] : 1995 F 29 From: Ky ceron MD PCP: Dr. Miguel A Pappas MD Status: REG CLI Study: OB Limited With Biometrics Date of Exam: 10/06 Exam# [id number] Ordering Dr: Melinda Bauer CROP DUSTER CROP DUSTER -C PROCEDURE: OB LIMITED WITH BIOMETRICS 10/06/2024 REASON FOR EXAM: GROWTH US, CHECK CERVICAL LENGTH TECHNIQUE: High resolution obstetric ultrasound performed using a 2D transducer. Standard views obtained, including biometry, anatomy survey, and Doppler studies. COMPARISON: Prior study dated September 08, 2024. FINDINGS Number: 1 Position: Vertex Placental Position: Anterior and not low-lying. Placental Abnormalities: No evidence of previa. DIMENSIONS: Biparietal Diameter: 6.68 cm: 26 weeks and 6 days: 8 percentile/ Head Circumference: 26.22 cm: 28 weeks and 4 days: 30 percentile./ Abdominal Circumference: 23.12 cm: 27 weeks and 3 days: 23rd percentile/ Femur Length: 5.12 cm: 27 weeks and 3 days: 17 percentile/ ESTIMATED WEIGHT: 1076 g plus/-161 g ESTIMATED WEIGHT PERCENTILE (24+ weeks): 17 ESTIMATED GESTATIONAL AGE: Baseline: 28 weeks and 1 day By Ultrasound: December 28, 2024 ESTIMATED DATE OF DELIVERY: Baseline: 27 weeks and 6 days By Ultrasound: December 30, 2024 BIOPHYSICAL ASSESSMENT: Amniotic Fluid Volume: 5.5 cm Amniotic Fluid Index: 14.5 cm (8-24 cm normal range) Cardiac Motion: 160 beats per minute (average) Trunk and Limb Motion: Present. MATERNAL ANATOMY: Adnexa: Neither maternal ovary is successfully identified. Cervical Length (if measured): 3.8 cm. A small amount of fluid is seen within the endocervical canal. The canal measures 0.45 cm. US/OB Limited With Biometrics IMPRESSION: Single live intrauterine gestation with a mean gestational age of 27 weeks and 6 days. A small amount of fluid is seen within the endocervical canal. The cervix is dilated measuring 4.5 mm. Cervical length measures 3.8 cm. Reading Location: [facility] CC: CHANO Bauer; Dr. Miguel A Pappas MD Rfid Technician: Signed Normal [facility] HIVon 09-24-2024 HIV Non-Reactive Normal Nonreactive [facility] Comment on above: Order Comment: PN Result Comment: Non- Reactive Reactive Repeatedly reactive samples must be confirmed according to CDC recommended confirmatory algorithms. The subresults for either HIVAG or AHIV can be used as an aid in the selection of the confirmation algorithm for reactive samples. Send out specimens with Reactive results to [facility] for confirmation. Order the HIV antibody detection and differentiation: lc#[id number] Performed By: #### B TS, L100.0100 #### [facility] [address] [place], [place], [id number] Laboratory - Chemistry and C hemistry - challengeOrdered By: Melinda Bauer on 09-24-2024 Glucose Ql (U) Negative [facility] Laboratory - UrinalysisOrder ed By: Melinda Bauer on 09-24-2024 Protein Ql (U) Negative [facility] Women'S Swim Coach Office Visit Reporton 09-24-2024 Women'S Swim Coach Office Visit Report [facility]'[address], [address] [place] [address] OFFICE VISIT Date of Service: 09/24/24 MR#: [id number] Acct: [id number] Name: AIDAN PERAZA Rep #: [id number] : 1995 Provider: CHANO joya Age/Sex: 29/F Location: [place] Status: Signed Intake Vital Signs 08/26/24 14:20 09/24/24 11:35 Height 5 ft 9 in 5 ft 9 in Weight: 182 lb 6 oz BMI 26.9 BP 128/76 H Intake Visit Reasons: 26wk ob/glucose 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: No Is patient in pain?: No Allergies No Known Allergies Allergy (Verified 09/24/24 11:35) Medications ???Medication ???Instructions ???Recorded ???Confirmed ???Type PNV 153-FA 400 mcg-om3 35 mg-dha tab PO 07/28/24 09/24/24 History 25 mg-epa 5 mg-fish oil chew tablet Last Menstrual Period: 05/27/24 : Yes [facility] Medical History Laceration with foreign body of left index finger without damage to nail, initial encounter Puncture wound without foreign body of left index finger without damage to nail, initial encounter Laceration of left index finger with foreign body Puncture wound of left index finger Family History Grandmother Cancer Maternal ovarian, colon with metastasis Grandfather Myocardial infarction Maternal-2 VT's Social History adopted: No household members: spouse current occupational status: employed current occupation: [employer] current occupational exposures/hazards: No pets and animals: Yes pets and animals: dog(s) history of recent travel: No sexually active: Yes Smoking Status: Never smoker alcohol intake: never substance use type: does not use well-balanced diet: daily or most days caffeine: No eating out: rarely or never during the past year weight has: remained stable what type of physical activity do you participate in: running, weight training and other details: Kickboxing frequency: 3-4 times per week duration: 45-60 minutes/day john/holiness: Mu-Ism seatbelt use: always do you feel safe at home: Yes 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 OB Visit [facility] Calculator Estimated Delivery Date Method Current WG Current Estimate 12/28/24 Ultrasound #1 26w 3d Expected Delivery Route/Plan Labor Preferences- CB/BF classes: [] labor support person: Kelvin labor intervention preferences: [] pain management options preferred: limited cut cord/dad catch: yes : yes PP control planned: [] discussed possible routes of delivery and associated risks: [] special requests: [] Specific Issue/Plans Covid status: [] Flu vaccine: [] Tdap vaccine: [] Rhogam: NA LARC form signed: yes Problem list reviewed and updated with the most current plan of care details and appropriate orders placed. Relevant counseling for the gestational age provided. 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 planning hospital delivery 09/24/24 -???-???-???-???-???-???- ???-???-???-???-???-???- 26w 3d 182 lb 6 oz 128/76 Negative -???-???-???-???-???-???- ???-???-???-???-???-???- Negative 137 26 -???-???-???-???-???-???- ???-???-???-???-???-???- -No VB, LO F or CTX. Larc. Ordered growth US and recheck CL. ACOG First Trimester First Trimester: Desire for , Alcohol, Tobacco Cessation, Illicit/Recreational Drug/Substance Use, Intimate Partner Violence, Barriers to care, Unstable Housing, Communication Barriers, Environmen (more content not included)... Normal [facility] Syphilis Antibodieson 2024 Syphilis Abs Non-Reactive Normal Nonreactive [facility] Comment on above: Order Comment: PN Performed By: #### B TS, L100.0100 #### [facility] [address] [place], [address] Absolute lymphocyte countOrd ered By: Namita Gray on 09-19-2024 Lymphocytes Auto (Unsp spec) [#/Vol] 1.55 10*3/uL 0.83-4.51 [facility] Absolute neutrophil countOrd ered By: Namita Gray on 09-19-2024 Neutrophils (Bld) [#/Vol] 6.7 10*3/uL 2.0-7.7 [facility] Automated lymphocyte count a s percentage of total leukocytesOrdered By: Namita Gray on 09-19-2024 Lymphocytes/100 WBC Auto (Unsp spec) 17.4 % Low 19-41 [facility] Basophil percentageOrdered B y: Namita Gray on 09-19-2024 Basophils/100 WBC (Bld) 0.2 % 0-1 [facility] CBC W/Diff, Automatedon Absolute Lymph 1.55 X10 3/uL Normal 0.83-4.51 [facility] Comment on above: Performed By: #### L 700.8000 #### [facility] [address] [place], [address] Absolute Neut 6.7 X10 3/uL Normal 2.0-7.7 [facility] Comment on above: Performed By: #### L 700.8000 #### [facility] [address] [place], [address] Basophils/100 WBC (Bld) 0.2 % Normal 0-1 [facility] Comment on above: Performed By: #### L 700.8000 #### [facility] [address] [place], [address] Eosinophils/100 WBC (Bld) 0.9 % Normal 0-5 [facility] Comment on above: Performed By: #### L 700.8000 #### [facility] [address] [place], [address] Erythrocyte distribution width (RBC) [Ratio] 12.7 % Normal 11.6-14.6 [facility] Comment on above: Performed By: #### L 700.8000 #### [facility] [address] [place], [address] Hematocrit (Bld) [Volume fraction] 33.8 % Low 37-47 [facility] Comment on above: Performed By: #### L 700.8000 #### [facility] [address] [place], [address] Hemoglobin (Bld) [Mass/Vol] 11.6 g/dL Low 12.0-15.0 [facility] Comment on above: Performed By: #### L 700.8000 #### [facility] [address] [place], [address] IG% 0.600 Normal 0.0-0.9 [facility] Comment on above: Result Comment: IG% - Immature Granulocytes (promyelocytes, myelocytes and metamyelocytes) > 1% indicates that a LEFT SHIFT is Present. Performed By: #### L 700.8000 #### [facility] [address] [place], [address] Lymphocytes/100 WBC (Bld) 17.4 % Low 19-41 [facility] Comment on above: Performed By: #### L 700.8000 #### [facility] [address] [place], [address] MCH (RBC) [Entitic mass] 31.9 pg Normal 27.0-32.0 [facility] Comment on above: Performed By: #### L 700.8000 #### [facility] [address] [place], [address] MCHC (RBC) [Mass/Vol] 34.3 g/dL Normal 32-36 [facility] Comment on above: Performed By: #### L 700.8000 #### [facility] [address] [place], [address] MCV (RBC) [Entitic vol] 92.9 fL Normal 81-99 [facility] Comment on above: Performed By: #### L 700.8000 #### [facility] [address] [place], [address] Monocytes/100 WBC (Bld) 5.7 % Normal 0-10 [facility] Comment on above: Performed By: #### L 700.8000 #### [facility] [address] [place], [address] Neutrophils/100 WBC (Bld) 75.2 % High 47-70 [facility] Comment on above: Performed By: #### L 700.8000 #### [facility] [address] [place], [address] Nucleated RBC (Bld) [#/Vol] 0 10*3/uL Normal 0-5 [facility] Comment on above: Performed By: #### L 700.8000 #### [facility] [address] [place], [address] Platelet mean volume (Bld) [Entitic vol] 9.8 fL Normal 6.2-12.0 [facility] Comment on above: Performed By: #### L 700.8000 #### [facility] [address] [place], [address] Platelets (Bld) [#/Vol] 207 10*3/uL Normal 150-450 [facility] Comment on above: Performed By: #### L 700.8000 #### [facility] [address] [place], [address] RBC (Bld) [#/Vol] 3.64 10*6/uL Low 4.2-5.4 [facility] Comment on above: Performed By: #### L 700.8000 #### [facility] [address] [place], [address] RDW SD 43.4 fl Normal 35.1-43.9 [facility] Comment on above: Performed By: #### L 700.8000 #### [facility] [address] [place], [address] WBC (Bld) [#/Vol] 8.9 10*3/uL Normal 4.4-11.0 [facility] Comment on above: Performed By: #### L 700.8000 #### [facility] [address] [place], [address] Eosinophil percentageOrdered By: Namita Gray on 09-19-2024 Eosinophils/100 WBC (Bld) 0.9 % 0-5 [facility] Erythrocyte distribution wid th (RBC) [Ratio]Ordered By: Namita Gray on 09-19-2024 Erythrocyte distribution width (RBC) [Entitic vol] 43.4 fL 35.1-43.9 [facility] Erythrocyte distribution wid th ratioOrdered By: Namita Gray on 09-19-2024 Erythrocyte distribution width (RBC) [Ratio] 12.7 % 11.6-14.6 [facility] Erythrocyte distribution wid th standard deviationOrdered By: Namita Gray on 09-19-2024 Erythrocyte distribution width (RBC) [Ratio] 43.4 fl 35.1-43.9 [facility] Glucose Challenge Gest 1H 50 apollo 09-19-2024 GLU GEST 50g 1H 92 mg/dL Normal 70-140 [facility] Comment on above: Performed By: #### L 700.8000 #### [facility] [address] [place] [address], [address] Glucose measurement at 2 noah rs post-dose gestational glucose tolerance testOrdered By: Namita Gray on 09-19-2024 Glucose [Mass/Vol] 92 mg/dL 70-140 [facility] Hematocrit Auto (Bld) [Volum e fraction]Ordered By: Namita Gray on 09-19-2024 Hematocrit (Bld) [Volume fraction] 33.8 % Low 37-47 [facility] Hemoglobin measurementOrdere d By: Namita Gray on 09-19-2024 Hemoglobin (Bld) [Mass/Vol] 11.6 g/dL Low 12.0-15.0 [facility] Immature granulocytes/100 WB C Auto (Bld)Ordered By: Namita Gray on 09-19-2024 Immature granulocytes/100 WBC (Bld) 0.600 % 0.0-0.9 [facility] Comment on above: IG% - Immature Granu locytes (promyelocytes, myelocytes and metamyelocytes) > 1% indicates that a LEFT SHIFT is Present. Lymphocytes Auto (Unsp spec) [#/Vol]Ordered By: Namiat Gray on 09-19-2024 Lymphocytes (Bld) [#/Vol] 1.55 10*3/uL 0.83-4.51 [facility] Lymphocytes/100 WBC Auto (Un sp spec)Ordered By: Namita Gray on 09-19-2024 Lymphocytes/100 WBC (Bld) 17.4 % Low 19-41 [facility] MCV (mean corpuscular volume ) determinationOrdered By: Namita Gray on 09-19-2024 MCV (RBC) [Entitic vol] 92.9 fL 81-99 [facility] Mean corpuscular hemoglobin (MCH) determinationOrdered By: Namita Gray on 09-19-2024 MCH (RBC) [Entitic mass] 31.9 pg 27.0-32.0 [facility] Mean corpuscular hemoglobin concentration (MCHC) determinationOrdered By: Namita Gray on 09-19-2024 MCHC (RBC) [Mass/Vol] 34.3 g/dL 32-36 [facility] Mean platelet volume determi nationOrdered By: Namita Gray on 09-19-2024 Platelet mean volume (Bld) [Entitic vol] 9.8 fL 6.2-12.0 [facility] Monocyte percentageOrdered B y: Namita Gray on 09-19-2024 Monocytes/100 WBC (Bld) 5.7 % 0-10 [facility] Neutrophil percentageOrdered By: Namita Gray on 09-19-2024 Neutrophils/100 WBC (Bld) 75.2 % High 47-70 [facility] No Panel InformationOrdered By: Melinda Bauer on 09-19-2024 HIV (1&2) Antibody Non-Reactive Nonreactive [facility] Comment on above: Non-ReactiveReactive Repeatedly reactive samples must be confirmed according to CDC recommended confirmatory algorithms. The subresults for either HIVAG or AHIV can be used as an aid in the selection of the confirmation algorithm for reactive samples.Send out specimens with Reactive results to [facility] for confirmation.Order the HIV antibody detection and differentiation: #[id number] Nucleated red blood cell per centageOrdered By: Namita Gray on 09-19-2024 Nucleated RBC/100 WBC (Bld) [Ratio] 0 % 0-5 [facility] Platelet countOrdered By: Heron dickey Marina on 09-19-2024 Platelets (Bld) [#/Vol] 207 10*3/uL 150-450 [facility] RBC Auto (Bld) [#/Vol]Ordere d By: Namita Marina on 09-19-2024 RBC (Bld) [#/Vol] 3.64 10*6/uL Low 4.2-5.4 [facility] T. pallidum abOrdered By: Rory Bauer on 09-19-2024 Syphilis Total Antibody Non-Reactive Nonreactive [facility] White blood cell (WBC) count Ordered By: Namitaedmond Gray on 09-19-2024 WBC (Bld) [#/Vol] 8.9 10*3/uL 4.4-11.0 [facility] OB Limited With Biometricson 09-08-2024 OB Limited With Biometrics [facility] Imaging Services [address] [place], [place] [address] OB Limited With Biometrics MR#: [id number] Acct: [id number] Name: AIDAN PERAZA Rep #: [id number] : 1995 F 29 From: Hero Robb MD PCP: Dr. Miguel A Pappas MD Status: REG CLI Study: OB Limited With Biometrics Date of Exam: 09/08 Exam# [id number] Ordering Dr: Katelin Lazcano PROCEDURE: OB LIMITED WITH BIOMETRICS 09/08/2024 REASON FOR EXAM: 4 WEEK GROWTH TECHNIQUE: Transabdominal obstetric ultrasound performed for biometry. COMPARISON: 08/25/2024 transvaginal ultrasound and anatomy ultrasound 08/10/2024 FINDINGS Transabdominal imaging. Single live intrauterine with cardiac activity seen at 141 beats per minute. Presentation is again breech. The cervix currently transabdominally measures 3.2 cm and overall appears closed however this is not as well seen on the preceding transvaginal imaging of 08/25/2024 at which time the cervix was measured at a length of 4.5 cm with appearance of some funneling. Consider short-term follow-up transvaginal repeat imaging. Adnexa not visualized. Maximum vertical pocket 4.4 cm Anterior grade 0 placenta appears within limits. DIMENSIONS: Biparietal Diameter: 5.6 cm/22 weeks 6 days Head Circumference: 27.6 cm/23 weeks 5 days Abdominal Circumference: 19.3 cm/24 weeks 0 days Femur Length: 4.2 cm/23 weeks 3 days FL/AC 20%, FL/BPD 75%, FL/HC 19%, CI 72%, HC/AC 1.12 ESTIMATED WEIGHT: 622 g +/-93 g ESTIMATED WEIGHT PERCENTILE (24+ weeks): 24% Estimated age by current ultrasound 23 weeks 4 days, CHAVA 01/01/2025 age by LMP 24 weeks 1 day, CHAVA 12/28/2024. US/OB Limited With Biometrics IMPRESSION: Single live intrauterine at estimated ultrasound age of 23 weeks and 4 days with biometrics as above. There is appropriate appearing interval growth. The cervix currently transabdominally measures 3.2 cm and overall appears closed however this is not as well seen on the preceding transvaginal imaging of 08/25/2024 at which time the cervix was measured at a length of 4.5 cm with appearance of some funneling. Consider short-term follow-up transvaginal repeat imaging. Presentation is again breech. Reading Location: [id number] CC: Dr. Miguel A Pappas MD; Dr. Katelin Lazcano MD Rfid Technician: Signed Normal [facility] Women'S Swim Coach Office Visit Reporton 08-26-2024 Women'S Swim Coach Office Visit Report [facility] [address], [address] [place] [address] OFFICE VISIT Date of Service: 08/26/24 MR#: [id number] Acct: [id number] Name: AIDAN PERAZA Rep #: [id number] : 1995 Provider: Dr. Namita Holcomb DO Age/Sex: 29/F Location: [place] Status: Signed Intake Vital Signs 01/16/24 18:19 07/29/24 09:13 08/26/24 14:20 08/26/24 14:20 Height 5 ft 9 in 5 ft 9 in 5 ft 9 in 5 ft 9 in Weight: 180 lb BMI 26.6 BP 132/71 H Intake Visit Reasons: 22 wk OB 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: No Is patient in pain?: No Allergies No Known Allergies Allergy (Verified 08/26/24 14:19) Medications ???Medication ???Instructions ???Recorded ???Confirmed ???Type PNV 153-FA 400 mcg-om3 35 mg-dha tab PO 07/28/24 08/26/24 History 25 mg-epa 5 mg-fish oil chew tablet Last Menstrual Period: 05/27/24 Zika: Zika virus screening: Negative : No [facility] Medical History Laceration with foreign body of left index finger without damage to nail, initial encounter Puncture wound without foreign body of left index finger without damage to nail, initial encounter Laceration of left index finger with foreign body Puncture wound of left index finger Family History Grandmother Cancer Maternal ovarian, colon with metastasis Grandfather Myocardial infarction Maternal-2 VT's Social History adopted: No household members: spouse current occupational status: employed current occupation: [employer] current occupational exposures/hazards: No pets and animals: Yes pets and animals: dog(s) history of recent travel: No sexually active: Yes Smoking Status: Never smoker alcohol intake: never substance use type: does not use well-balanced diet: daily or most days caffeine: No eating out: rarely or never during the past year weight has: remained stable what type of physical activity do you participate in: running, weight training and other details: Kickboxing frequency: 3-4 times per week duration: 45-60 minutes/day john/holiness: Mu-Ism seatbelt use: always do you feel safe at home: Yes 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 OB Visit [facility] Calculator Estimated Delivery Date Method Current WG Current Estimate 12/28/24 Ultrasound #1 22w 2d Expected Delivery Route/Plan Labor Preferences- CB/BF classes: [] labor support person: [] labor intervention preferences: [] pain management options preferred: [] cut cord/dad catch: [] : [] PP control planned: [] discussed possible routes of delivery and associated risks: [] special requests: [] Specific Issue/Plans Covid status: [] Flu vaccine: [] Tdap vaccine: [] Rhogam: [] LARC form signed: [] Problem list reviewed and updated with the most current plan of care details and appropriate orders placed. Relevant counseling for the gestational age provided. 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 planning hospital delivery ACOG First Trimester First Trimester: Desire for , Alcohol, Tobacco Cessation, Illicit/Recreational Drug/Substance Use, Intimate Partner Violence, Barriers to care, Unstable Housing, Communication Barriers, Environmental/Work Hazards, Anticipated Course of Care, Toxoplasmosis Precations, Use of Any medications, Sexual activity, Exercise, Dental Care, Sauna/Hot tub use, Seat Belt use, Childbirth classes/Hospital (more content not included)... Normal [facility] Transvaginal w/Preg USon Transvaginal w/Preg [facility] Imaging Services [address] [place], [place] [id number] Transvaginal w/Preg MR#: [id number] Acct: [id number] Name: AIDAN PERAZA Rep #: [id number] : 1995 F 29 From: [place] ceron MD PCP: Dr. Miguel A Pappas MD Status: [facility] Study: Transvaginal w/Preg US Date of Exam: 08/25/24 Exam# [id number] Ordering Dr: Katelin Lazcano PROCEDURE: TRANSVAGINAL W/PREG US REASON FOR EXAM: CHECK CERVICAL LENGTH, FUNNELING TO CONFIRM STABLE COMPARISON: Comparison is made with prior study dated August 10, 2024. FINDINGS Number: 1 Position: Breech Placental Position: Anterior and not low-lying. Placental Abnormalities: None. Cardiac Motion: 150 beats per minute (average) MATERNAL ANATOMY: Adnexa: Neither maternal ovary is successfully identified. Cervical Length (if measured): 4.5 cm. There is some fluid seen in the cervix. There is some funneling of the cervix. It measures 3 mm in transverse dimension. US/Transvaginal w/Preg US IMPRESSION: The cervical length is 4.5 cm. There is some funneling of the cervix. Fluid is seen within it. The cervix measures 3 mm in transverse dimension. Reading Location: [place] [address] CC: Dr. Miguel A Pappas MD; Dr. Katelin Lazcano MD Rfid Technician: Signed Normal [facility] OB Anatomy w/ Transvaginalon 08-10-2024 OB Anatomy w/ Transvaginal [facility] Imaging Services [address] [place] [address] [id number] OB Anatomy w/ Transvaginal MR#: [id number] Acct: [id number] Name: AIDAN PERAZA Rep #: [id number] : 1995 F 29 From: Edouard Gonzalez i, DO PCP: Dr. Miugel A Pappas MD Status: REG CLI Study: OB Anatomy w/ Transvaginal Date of Exam: 08/10 Exam# [id number] Ordering Dr: Katelin Lazcano PROCEDURE: ultrasound. REASON FOR EXAM: anatomy. COMPARISON: Report 05/25/2024, images not available. FINDINGS Included maternal urinary bladder unremarkable. Cervical length is 4.5 cm. There is some fluid echogenicity within the cervix, with some minimal funneling of the internal os. The placenta is anterior, without retroplacental fluid collection or placenta previa. Amniotic fluid level appears within normal limits, with maximum vertical pocket of 3.5 cm. There is a single live intrauterine gestation in breech presentation. heart rate 148 beats per minute. Visualized intracranial and intra-abdominal structures are grossly unremarkable. Lateral ventricle diameter at 6 mm. Biparietal diameter 4.2 cm, at the 9th percentile. Head circumference 16.4 cm, at the 9th percentile. Abdominal circumference 13.9 cm, at the 22nd percentile. Femur length 2.9 cm, at the 12th percentile. Estimated weight 275 g +/-41 g, at the 10th percentile. Facial features are grossly intact. Visualized extremities unremarkable. There appears to be a four-chamber heart and three-vessel cord. cord insertion is unremarkable. Maternal adnexal regions unremarkable. The ovaries are not demonstrated. US/OB Anatomy w/ Transvaginal IMPRESSION: Single live intrauterine gestation with estimated gestational age 19 weeks, 1 days. Estimated date of confinement 01/03/2025. No gross anomalies are demonstrated. Amniotic fluid level appears within normal limits. Cervical length is 4.5 cm. The cervix contains a small amount of fluid, with some minimal funneling of the internal cervical os. No evidence of placenta previa. Reading Location: [facility] CC: Dr. Miguel A Pappas MD; Dr. Katelin Lazcano MD Rfid Technician: Signed Normal [facility] HIV - WCHon 08-04-2024 HIV Non-Reactive Normal Nonreactive [facility] Comment on above: Performed By: #### L 3890.6005 #### [facility] Laboratory [address] [place], [address] Chlamydia/GC MICHAEL aptimaon CHLAMY,NUC ACID Negative Normal Negative [facility] Comment on above: Performed By: #### L 700.8000 #### [facility] [address] [place], [place], [id number] GC BY NUC ACID Negative Normal Negative [facility] Comment on above: Result Comment: Perf ormed at: =G - [facility] [address] [id number] Numerical Control Operator: Kady Solis MD, Phone: [phone] Performed By: #### L 700.8000 #### [facility] [address] [place], [address] L3410.9998on 07-31-2024 [facility] Misc. COMMENT Normal . [facility] Comment on above: Order Comment: [id number] Result Comment: Test Ordered: [id number] RPR, Rfx Qn RPR/Confirm TP RPR Note: CB Non Reactive Reference Range: Non Reactive Performed at: CB - [facility] [address] [id number] Numerical Control Operator: Darrius Donnelly PhD, Phone: [phone] Performed By: #### L 700.8000, L801.2600 #### [facility] [address] [place], [place], [address] Urine Cultureon 07-31-2024 [facility] Mixed Gram Positive Organisms [place] Count 11,000-25,000 MIXC Mixed contaminants. Submit a new specimen if indicated. Normal [facility] Comment on above: Performed By: #### L 700.8000 #### [facility] [address] [place], [address] L509.8000on 07-30-2024 Syphilis Abs Reactive Normal [facility] Comment on above: Order Comment: Reaso n for Exam: Result Comment: RESU LTS CALLED TO LYNNE [place]ER 07/30/24 0819 Liliana [place]. REPORT READ BACK BY SAME. AMENDED REPORT 07/30/24 0823 Syphilis Abs previously reported as: Reactive Performed By: #### L 700.8000 #### [facility] [address] [place], [place], [address] Absolute lymphocyte countOrd ered By: Katelin Lazcano on 07-29-2024 Lymphocytes Auto (Unsp spec) [#/Vol] 1.23 10*3/uL 0.83-4.51 [facility] Absolute neutrophil countOrd ered By: Katelin Lazcano on 07-29-2024 Neutrophils (Bld) [#/Vol] 7.6 10*3/uL 2.0-7.7 [facility] Automated lymphocyte count a s percentage of total leukocytesOrdered By: Katelin Lazcano on 07-29-2024 Lymphocytes/100 WBC Auto (Unsp spec) 13.0 % Low 19-41 [facility] Basophil percentageOrdered B y: Katelin Lazcano on 07-29-2024 Basophils/100 WBC (Bld) 0.5 % 0-1 [facility] C. trachomatis rRNA MICHAEL+prob e Ql (Unsp spec)Ordered By: Katelin Lazcano on 07-29-2024 Chlamydia DNA (MICHAEL) Negative Negative [facility] CBC W/Diff, Automatedon 07-18 Absolute Lymph 1.23 X10 3/uL Normal 0.83-4.51 [facility] Comment on above: Performed By: #### Miguel BUSTILLOS, L100.0100 #### [facility] [address] [place], [address] Absolute Neut 7.6 X10 3/uL Normal 2.0-7.7 [facility] Comment on above: Performed By: #### Miguel BUSTILLOS, L100.0100 #### [facility] [address] [place], [address] Basophils/100 WBC (Bld) 0.5 % Normal 0-1 [facility] Comment on above: Performed By: #### Miguel BUSTILLOS, L100.0100 #### [facility] [address] [place], [address] Eosinophils/100 WBC (Bld) 0.3 % Normal 0-5 [facility] Comment on above: Performed By: #### Miguel BUSTILLOS, L100.0100 #### [facility] [address] [place], [address] Erythrocyte distribution width (RBC) [Ratio] 12.7 % Normal 11.6-14.6 [facility] Comment on above: Performed By: #### Miguel BUSTILLOS, L100.0100 #### [facility] [address] [place], [address] Hematocrit (Bld) [Volume fraction] 36.5 % Low 37-47 [facility] Comment on above: Performed By: #### Miguel BUSTILLOS, L100.0100 #### [facility] [address] [place], [address] Hemoglobin (Bld) [Mass/Vol] 12.1 g/dL Normal 12.0-15.0 [facility] Comment on above: Performed By: #### Miguel BUSTILLOS, L100.0100 #### [facility] [address] [place], [address] IG% 0.400 Normal 0.0-0.9 [facility] Comment on above: Result Comment: IG% - Immature Granulocytes (promyelocytes, myelocytes and metamyelocytes) > 1% indicates that a LEFT SHIFT is Present. Performed By: #### Miguel BUSTILLOS, L100.0100 #### [facility] [address] [place], [address] Lymphocytes/100 WBC (Bld) 13.0 % Low 19-41 [facility] Comment on above: Performed By: #### Miguel BUSTILLOS, L100.0100 #### [facility] [address] [place], [address] MCH (RBC) [Entitic mass] 29.9 pg Normal 27.0-32.0 [facility] Comment on above: Performed By: #### Miguel BUSTILLOS, L100.0100 #### [facility] [address] [place], [address] MCHC (RBC) [Mass/Vol] 33.2 g/dL Normal 32-36 [facility] Comment on above: Performed By: #### Miguel BUSTILLOS, L100.0100 #### [facility] [address] [place], [address] MCV (RBC) [Entitic vol] 90.1 fL Normal 81-99 [facility] Comment on above: Performed By: #### Miguel BUSTILLOS, L100.0100 #### [facility] [address] [place], [address] Monocytes/100 WBC (Bld) 5.5 % Normal 0-10 [facility] Comment on above: Performed By: #### Miguel BUSTILLOS, L100.0100 #### [facility] [address] [place], [address] Neutrophils/100 WBC (Bld) 80.3 % High 47-70 [facility] Comment on above: Performed By: #### Miguel BUSTILLOS, L100.0100 #### [facility] [address] [place], [address] Nucleated RBC (Bld) [#/Vol] 0 10*3/uL Normal 0-5 [facility] Comment on above: Performed By: #### Miguel BUSTILLOS, L100.0100 #### [facility] [address] [place], [address] Platelet mean volume (Bld) [Entitic vol] 9.7 fL Normal 6.2-12.0 [facility] Comment on above: Performed By: #### Miguel BUSTILLOS, L100.0100 #### [facility] [address] [place], [address] Platelets (Bld) [#/Vol] 217 10*3/uL Normal 150-450 [facility] Comment on above: Performed By: #### Miguel BUSTILLOS, L100.0100 #### [facility] [address] [place], [address] RBC (Bld) [#/Vol] 4.05 10*6/uL Low 4.2-5.4 [facility] Comment on above: Performed By: #### Miguel BUSTILLOS, L100.0100 #### [facility] [address] [place], [address] RDW SD 41.4 fl Normal 35.1-43.9 [facility] Comment on above: Performed By: #### B TS, L100.0100 #### [facility] [address] [place], [address] WBC (Bld) [#/Vol] 9.5 10*3/uL Normal 4.4-11.0 [facility] Comment on above: Performed By: #### B TS, L100.0100 #### [facility] [address] [place], [address] Chlamydia trachomatis rRNA d etection by probe and target amplification methodOrdered By: Katelin Lazcano on 07-29-2024 C. trachomatis rRNA MICHAEL+probe Ql (Unsp spec) Negative Negative [facility] Eosinophil percentageOrdered By: Katelin Lazcano on 07-29-2024 Eosinophils/100 WBC (Bld) 0.3 % 0-5 [facility] Erythrocyte distribution wid th ratioOrdered By: Katelin Lazcano on 07-29-2024 Erythrocyte distribution width (RBC) [Ratio] 12.7 % 11.6-14.6 [facility] Erythrocyte distribution wid th standard deviationOrdered By: Katelin Lazcano on 07-29-2024 Erythrocyte distribution width (RBC) [Entitic vol] 41.4 fL 35.1-43.9 [facility] Erythrocyte distribution width (RBC) [Ratio] 41.4 fl 35.1-43.9 [facility] HIV 1 and HIV-2 antibody ass ay with HIV-1 p24 antigen detectionOrdered By: Katelin Lazcano on 07-29-2024 HIV 1+2 Ab+HIV1 p24 Ag IA Ql Non-Reactive Nonreactive [facility] HIV 1+2 Ab+HIV1 p24 Ag IA Ql Ordered By: Katelin Lazcano on 07-29-2024 HIV (1&2) Antibody Non-Reactive Nonreactive [facility] Hematocrit Auto (Bld) [Volum e fraction]Ordered By: Katelin Lazcano on 07-29-2024 Hematocrit (Bld) [Volume fraction] 36.5 % Low 37-47 [facility] Hemoglobin measurementOrdere d By: Katelin Lazcano on 07-29-2024 Hemoglobin (Bld) [Mass/Vol] 12.1 g/dL 12.0-15.0 [facility] Hepatitis B Surface Antigeno n 07-29-2024 HEP B Surf Ag Non-Reactive Normal Nonreactive [facility] Comment on above: Order Comment: Reaso n for Exam: Performed By: #### L 700.8000 #### [facility] [address] [place], [address] Hepatitis B surface antigen detectionOrdered By: Katelin Lazcano on 07-29-2024 Hepatitis B Surface Antigen Non-Reactive Nonreactive [facility] Hepatitis C Antibodyon 07-29 Hepatitis C AB Non-Reactive Normal Nonreactive [facility] Comment on above: Order Comment: Reaso n for Exam: Result Comment: Non Reactive: < 0.8 Equivocal: >/= 0.8 to < 1.0 Reactive: >/= 1.[address] [facility] requires that a reactive/equivocal HCV antibody result be sent out for confirmation. HCV Quant by PCR testing. Performed By: #### L 700.8000, L801.2600 #### [facility] [address] [place], [address] Hepatitis C virus antibody a ssayOrdered By: Katelin Lazcano on 07-29-2024 Hepatitis C Antibody Non-Reactive Nonreactive [facility] Comment on above: Non Reactive: < 0.8 Equivocal: >/= 0.8 to < 1.0 Reactive: >/= 1.0The CDC requires that a reactive/equivocal HCV antibody result be sent out for confirmation. HCV Quant by PCR testing. Immature granulocytes/100 WB C Auto (Bld)Ordered By: Katelin Lazcano on 07-29-2024 Immature granulocytes/100 WBC (Bld) 0.400 % 0.0-0.9 [facility] Comment on above: IG% - Immature Granu locytes (promyelocytes, myelocytes and metamyelocytes) > 1% indicates that a LEFT SHIFT is Present. Lymphocytes Auto (Unsp spec) [#/Vol]Ordered By: Katelin Lazcano on 07-29-2024 Lymphocytes (Bld) [#/Vol] 1.23 10*3/uL 0.83-4.51 [facility] Lymphocytes/100 WBC Auto (Un sp spec)Ordered By: Katelin Lazcano on 07-29-2024 Lymphocytes/100 WBC (Bld) 13.0 % Low 19-41 [facility] MCV (mean corpuscular volume ) determinationOrdered By: Katelin Lazcano on 07-29-2024 MCV (RBC) [Entitic vol] 90.1 fL 81-99 [facility] Mean corpuscular hemoglobin (MCH) determinationOrdered By: Katelin Lazcano on 07-29-2024 MCH (RBC) [Entitic mass] 29.9 pg 27.0-32.0 [facility] Mean corpuscular hemoglobin concentration (MCHC) determinationOrdered By: Katelin Lazcano on 07-29-2024 MCHC (RBC) [Mass/Vol] 33.2 g/dL 32-36 [facility] Mean platelet volume determi nationOrdered By: Katelin Lazcano on 07-29-2024 Platelet mean volume (Bld) [Entitic vol] 9.7 fL 6.2-12.0 [facility] Monocyte percentageOrdered B y: Katelin Lazcano on 07-29-2024 Monocytes/100 WBC (Bld) 5.5 % 0-10 [facility] Neisseria gonorrhoeae nuclei c acid detection by amplified probe techniqueOrdered By: Katelin Lazcano on 07-29-2024 N. gonorrhoeae DNA MICHAEL+probe Ql (Unsp spec) Negative Negative [facility] Comment on above: Performed at: =[facility] [address] [id number] Director: Kady Solis MD, Phone: [phone] Neutrophil percentageOrdered By: Katelin Lazcano on 07-29-2024 Neutrophils/100 WBC (Bld) 80.3 % High 47-70 [facility] Nucleated red blood cell per centageOrdered By: Katelin Lazcano on 07-29-2024 Nucleated RBC/100 WBC (Bld) [Ratio] 0 % 0-5 [facility] Women'S Swim Coach Office Visit Reporton 07-29-2024 Women'S Swim Coach Office Visit Report [facility] [address] [place] [id number] OFFICE VISIT Date of Service: 07/29/24 MR#: [id number] Acct: [id number] Name: AIDAN PERAZA Rep #: [id number] : 1995 Provider: Dr. 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 Is patient in pain?: No Feel stressed/tense/nervous/an xious/difficulty sleeping: not at all Allergies No Known Allergies Allergy (Verified 07/29/24 09:17) Medications ???Medication ???Instructions ???Recorded ???Confirmed ???Type PNV 153-FA 400 mcg-om3 35 mg-dha tab PO 07/28/24 History 25 mg-epa 5 mg-fish oil chew tablet Last Menstrual Period: 05/27/24 Zika: Zika virus screening: Negative : Yes Have you fallen in the past year?: No PFSH PFSH Medical History Laceration with foreign body of left index finger without damage to nail, initial encounter Puncture wound without foreign body of left index finger without damage to nail, initial encounter Laceration of left index finger with foreign body Puncture wound of left index finger Family History Grandmother Cancer Maternal ovarian, colon with metastasis Grandfather Myocardial infarction Maternal-2 VT's Social History adopted: No household members: spouse service: No current occupational status: employed current occupation: [employer] current occupational exposures/hazards: No pets and animals: Yes pets and animals: dog(s) history of recent travel: No sexually active: Yes Smoking Status: Never smoker alcohol intake: never substance use type: does not use well-balanced diet: daily or most days caffeine: No eating out: rarely or never during the past year weight has: remained stable what type of physical activity do you participate in: running, weight training and other details: Kickboxing frequency: 3-4 times per week duration: 45-60 minutes/day john/holiness: Mu-Ism seatbelt use: always do you feel safe at home: Yes 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 OB Visit [facility] Calculator Estimated Delivery Date Method Current WG Current Estimate 12/28/24 Ultrasound #1 18w 2d Comments: HIV: Urine Culture: Sequential Screen: NIPT Screen: Estimated Due Date: 12/28/24 Expected Delivery Route/Plan Labor Preferences- CB/BF classes: [] labor support person: [] labor intervention preferences: [] pain management options preferred: [] cut cord/dad catch: [] : [] PP control planned: [] discussed possible routes of delivery and associated risks: [] special requests: [] Specific Issue/Plans Covid status: [] Flu vaccine: [] Tdap vaccine: [] Rhogam: [] LARC form signed: [] Problem list reviewed and updated with the most current plan of care details and appropriate orders placed. Relevant counseling for the gestational age provided. 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 Normal [facility] Platelet countOrdered By: Sallie Lazcano on 07-29-2024 Platelets (Bld) [#/Vol] 217 10*3/uL 150-450 [facility] RBC Auto (Bld) [#/Vol]Ordere d By: Katelin Lazcano on 07-29-2024 RBC (Bld) [#/Vol] 4.05 10*6/uL Low 4.2-5.4 [facility] Rubella IgGon 07-29-2024 Rubella IgG Reactive Normal Nonreactive [facility] Comment on above: Order Comment: Reaso n for Exam: Result Comment: Anti body Results Interpretation of Immune Status Non Reactive Presumed Non-Immune Equivocal Equivocal Reactive Presumed Immune Performed By: #### L 700.8000 #### [facility] [address] [place], [place], [id number] Rubella immune status IgGOrd ered By: Katelin Lazcano on 07-29-2024 Rubella IgG Antibody Reactive Nonreactive [facility] Comment on above: Antibody Results Int erpretation of Immune Status Non Reactive Presumed Non-Immune Equivocal Equivocal Reactive Presumed Immune Serum Treponema species anti body detectionOrdered By: Katelin Lazcano on 07-29-2024 Treponema sp Ab Ql (S) Reactive [facility] Comment on above: RESULTS CALLED TO TE CRIS KETLER 07/30/24 0819 [place].REPORT READ BACK BY SAME.Previous reported result: Reactive Edited by: DOMINIK on 07/30/24:0823 AMENDED REPORT 07/30/24822 Syphilis Abs previously reported as: Reactive Treponema sp Ab Ql (S)Ordere d By: Katelin Lazcano on 07-29-2024 Syphilis Total Antibody Reactive [facility] Comment on above: RESULTS CALLED TO TE CRIS KETLER 07/30/24 0819 [place].REPORT READ BACK BY SAME.Previous reported result: Reactive Edited by: DOMINIK on 07/30/24:0823 AMENDED REPORT 07/30/24822 Syphilis Abs previously reported as: Reactive Type AND Screenon 07-29-2024 ABO and Rh group Nom (Bld) Blood group A Rh(D) positive Normal [facility] Comment on above: Order Comment: PN Performed By: #### B TS, L100.0100 #### [facility] [address] [place], [place], [address] Urine cultureOrdered By: Reji Lazcano on 07-29-2024 Bacteria identified Cx Nom (U) Positive Abnormal [facility] Bacteria identified Cx Nom (U) Positive Abnormal [facility] White blood cell (WBC) count Ordered By: Katelin Lazcano on 07-29-2024 WBC (Bld) [#/Vol] 9.5 10*3/uL 4.4-11.0 [facility] Transvaginal w/Preg USon Transvaginal w/Preg US [facility] Imaging Services [address] [place] [address] Transvaginal w/Preg US MR#: [id number] Acct: [id number] Name: AIDAN PERAZA Rep #: [id number] : 1995 F 28 From: Tip Madsen MD PCP: Dr. Miguel A Pappas MD Status: REG CLI Study: Transvaginal w/Preg US Date of Exam: 05/25/24 Exam# [id number] Ordering Dr: RAJ SCHMITT [id number] STUDY: FIRST TRIMESTER OBSTETRICAL ULTRASOUND REASON FOR EXAM: Female, 28 years old POSITIVE TEST LMP: TECHNIQUE: Transvaginal TECHNICAL QUALITY: Adequate. PRIOR ULTRASOUND: None. FINDINGS: There is visualization of a single gestational sac in a normal intrauterine position. The mean sac diameter (MSD) measures 3.8 cm, indicating an estimated gestational age (EGA) of 9 weeks, 1 days. The gestational sac shape is within normal limits. There is a visualized yolk sac. The yolk sac measures 5 mm. The placenta is non-visualized. There is visualization of a live embryo. The crown-rump length (CRL) measures 2.2 cm, indicating an estimated gestational age (EGA) of 8 weeks, 5 days. There is demonstrated cardiac activity with a heart rate of 177 bpm. The estimated gestation age (EGA) by US is 9 weeks, 0 days. The estimated date of delivery (CHAVA) by US is December 28, 2024. The uterus measures 12.6 x 7 x 6.1 cm. There is no demonstrated uterine fibroid. The cervix is closed. The right ovary measures 3.1 x 2.7 x 2.1 cm. There is no right ovarian cyst. There is no visualized right adnexal mass or complex lesion. The left ovary measures 3.1 x 2.8 x 2.1 cm. There is no left ovarian cyst. There is no visualized left adnexal mass or complex lesion. There is no fluid in the cul de sac. Incidental finding of questionable tiny cystic area in the umbilical cord measuring 6 x 7 mm of uncertain clinical significance. Recommend correlation and follow-up studies later in to assess for interval change US/Transvaginal w/Preg US IMPRESSION: Viable intrauterine gestation approximately 9 weeks gestational age. Question tiny cystic lesion in the umbilical cord of uncertain clinical significance Electronically Signed: Tip Madsen MD at 22:18 EST , CC: Dr. Miguel A Pappas MD; RAJ SCHMITT Rfid Technician: Signed Normal [facility] HCG ( test) Qlon Human Chorionic Gonadotropin, Quant 65724 mIU/mL High <4 [facility] Comment on above: hCG levels with Gest ational AgeGestational Age hCG mIU/mL (IU/L)0.2 - 1 week 5 - 501-2 weeks 50 - 5002-3 weeks 100 - 71702-2 weeks 500 - 353522-9 weeks 1000 - 720484-6 weeks 44443 - 100,0006-8 weeks 98762 - 200,0002-3 months 41411 - 100,000 hCG Titer Quant., Serumon HCG QUANT. 72955 mIU/mL High 1-3 [facility] Comment on above: Result Comment: hCG levels with Gestational Age Gestational Age hCG mIU/mL (IU/L) 0.2 - 1 week 5 - 50 1-2 weeks 50 - 500 2-3 weeks 100 - 5000 3-4 weeks 500 - 21986 4-5 weeks 1000 - 03124 5-6 weeks 23998 - 100,000 6-8 weeks 02415 - 200,000 2-3 months 13860 - 100,000 Performed By: #### L 700.8000 #### [facility] Laboratory [facility] [place], [address] hCG Titer Quant., Serumon 11 -11-2024 HCG QUANT. 2206 mIU/mL High 1-3 [facility] Comment on above: Result Comment: hCG levels with Gestational Age Gestational Age hCG mIU/mL (IU/L) 0.2 - 1 week 5 - 50 1-2 weeks 50 - 500 2-3 weeks 100 - 5000 3-4 weeks 500 - 40096 4-5 weeks 1000 - 52573 5-6 weeks 20675 - 100,000 6-8 weeks 41258 - 200,000 2-3 months 88154 - 100,000 Performed By: #### L 700.8000 #### [facility] [address] [place], [place], [id number] HCG ( test) Qlon Human Chorionic Gonadotropin, Quant 346 mIU/mL High <4 [facility] Comment on above: hCG levels with Gest ational AgeGestational Age hCG mIU/mL (IU/L)0.2 - 1 week 5 - 501-2 weeks 50 - 5002-3 weeks 100 - 09739-3 weeks 500 - 978928-5 weeks 1000 - 824008-2 weeks 88870 - 100,0006-8 weeks 06690 - 200,0002-3 months 70883 - 100,000 hCG Titer Quant., Serumon HCG QUANT. 346 mIU/mL High 1-3 [facility] Comment on above: Result Comment: hCG levels with Gestational Age Gestational Age hCG mIU/mL (IU/L) 0.2 - 1 week 5 - 50 1-2 weeks 50 - 500 2-3 weeks 100 - 5000 3-4 weeks 500 - 14514 4-5 weeks 1000 - 64616 5-6 weeks 03258 - 100,000 6-8 weeks 98709 - 200,000 2-3 months 33380 - 100,000 Performed By: #### B TS, L100.0100 #### [facility] [address] [place], [place], [id number] PROGESTERONE 4317on 04-22-20 24 PROGESTERONE 11.4 ng/mL Normal . [facility] Comment on above: Order Comment: N Result Comment: Foll icular phase 0.1 - 0.9 Luteal phase 1.8 - 23.9 Ovulation phase 0.1 - 12.0 First trimester 11.0 - 44.3 Second trimester 25.4 - 83.3 Third trimester 58.7 - 214.0 Postmenopausal 0.0 - 0.1 Performed at: [address] [id number] Numerical Control Operator: Darrius Donnelly PhD, Phone: [phone] Performed By: #### L 700.8000, L801.2600 #### [facility] [address] [place], [place], [id number] hCG Titer Quant., Serumon HCG QUANT. 109 mIU/mL High 1-3 [facility] Comment on above: Result Comment: hCG levels with Gestational Age Gestational Age hCG mIU/mL (IU/L) 0.2 - 1 week 5 - 50 1-2 weeks 50 - 500 2-3 weeks 100 - 5000 3-4 weeks 500 - 74386 4-5 weeks 1000 - 43195 5-6 weeks 06994 - 100,000 6-8 weeks 58149 - 200,000 2-3 months 64038 - 100,000 Performed By: #### L 700.8000, L801.2600 #### [facility] [address] [place], [address] Urine Cultureon 01-19-2024 [facility] Staphylococcus saprophyticus urine sensitivities are not recommended per CLSI guidelines. Treatment with Nitrofurantoin, Trimethoprim/Sulfa or a Fluroquinolone is suggested. Staphylococcus saprophyticus [place] Count 80,000-100,000 Staphylococcus saprophyticus: REACTION Clindamycin.induced Susc Islt NEG Gentamicin Islt LOPEZ <=0.5 S Nitrofurantoin Islt LOPEZ <=16 S Oxacillin Susc Islt 1 R Tetracycline Islt LOPEZ <=1 S Vancomycin Islt LOPEZ 1 S Normal [facility] Comment on above: Performed By: #### B TS, L100.0100 #### [facility] [address] [place], [place], [id number] Basic Metabolic Profile (BMP )on 01-16-2024 BUN/CRE 15.6 RATIO Normal 10-20 [facility] Comment on above: Performed By: #### L 100.0100, L500.2500 #### [facility] [address] [place], [address] CA,Total 9.6 mg/dL Normal 8.5-10.1 [facility] Comment on above: Performed By: #### L 100.0100, L500.2500 #### [facility] [address] [place], [address] Chloride [Moles/Vol] 108 mmol/L High 98-107 [facility] Comment on above: Performed By: #### L 100.0100, L500.2500 #### [facility] [address] [place], [address] CO2 [Moles/Vol] 25.0 mmol/L Normal 21.0-32.0 [facility] Comment on above: Performed By: #### L 100.0100, L500.2500 #### [facility] [address] [place], [address] Creatinine [Mass/Vol] 0.84 mg/dL Normal 0.55-1.02 [facility] Comment on above: Result Comment: The validity of the calculated GFR GFRAA in patients over 70 years has not been determined. Clinical correlation is essential. Performed By: #### L 100.0100, L500.2500 #### [facility] [address] [place], [address] ECRCL 115.03 ml/min Normal [facility] Comment on above: Performed By: #### L 100.0100, L500.2500 #### [facility] [address] [place], [address] EST GFR - AA 106 mL/min Normal >60 [facility] Comment on above: Result Comment: Afri can [place] GFR Calc Performed By: #### L 100.0100, L500.2500 #### [facility] [address] [place], [address] GAP 6 Normal 5-15 [facility] Comment on above: Performed By: #### L 100.0100, L500.2500 #### [facility] [address] [place], [address] GFR/1.73 sq M.predicted among non-blacks MDRD (S/P/Bld) [Vol rate/Area] 87 mL/min/{1.73_m2} Normal >60 [facility] Comment on above: Result Comment: Non- GFR Calc Performed By: #### L 100.0100, L500.2500 #### [facility] [address] [place], [address] Glucose [Mass/Vol] 84 mg/dL Normal 74-106 [facility] Comment on above: Performed By: #### L 100.0100, L500.2500 #### [facility] [address] [place], [address] Potassium [Moles/Vol] 4.0 mmol/L Normal 3.5-5.1 [facility] Comment on above: Performed By: #### L 100.0100, L500.2500 #### [facility] [address] [place], [address] Sodium [Moles/Vol] 139 mmol/L Normal 136-145 [facility] Comment on above: Performed By: #### L 100.0100, L500.2500 #### [facility] [address] [place], [address] Urea nitrogen [Mass/Vol] 13 mg/dL Normal 7-18 [facility] Comment on above: Performed By: #### L 100.0100, L500.2500 #### [facility] [address] [place], [address] CBC W/Diff, Automatedon 08-0 -2023 Absolute Lymph 2.18 X10 3/uL Normal 0.83-4.51 [facility] Comment on above: Performed By: #### L 100.0100, L500.2500 #### [facility] [address] [place], [address] Absolute Neut 6.8 X10 3/uL Normal 2.0-7.7 [facility] Comment on above: Performed By: #### L 100.0100, L500.2500 #### [facility] [address] [place], [address] Basophils/100 WBC (Bld) 0.5 % Normal 0-1 [facility] Comment on above: Performed By: #### L 100.0100, L500.2500 #### [facility] [address] [place], [address] Eosinophils/100 WBC (Bld) 0.6 % Normal 0-5 [facility] Comment on above: Performed By: #### L 100.0100, L500.2500 #### [facility] [address] [place], [address] Erythrocyte distribution width (RBC) [Ratio] 11.8 % Normal 11.6-14.6 [facility] Comment on above: Performed By: #### L 100.0100, L500.2500 #### [facility] [address] [place], [address] Hematocrit (Bld) [Volume fraction] 38.5 % Normal 37-47 [facility] Comment on above: Performed By: #### L 100.0100, L500.2500 #### [facility] [address] [place], [address] Hemoglobin (Bld) [Mass/Vol] 12.8 g/dL Normal 12.0-15.0 [facility] Comment on above: Performed By: #### L 100.0100, L500.2500 #### [facility] [address] [place], [address] IG% 0.300 Normal 0.0-0.9 [facility] Comment on above: Result Comment: IG% - Immature Granulocytes (promyelocytes, myelocytes and metamyelocytes) > 1% indicates that a LEFT SHIFT is Present. Performed By: #### L 100.0100, L500.2500 #### [facility] [address] [place], [address] Lymphocytes/100 WBC (Bld) 21.5 % Normal 19-41 [facility] Comment on above: Performed By: #### L 100.0100, L500.2500 #### [facility] [address] [place], [address] MCH (RBC) [Entitic mass] 30.0 pg Normal 27.0-32.0 [facility] Comment on above: Performed By: #### L 100.0100, L500.2500 #### [facility] [address] [place], [address] MCHC (RBC) [Mass/Vol] 33.2 g/dL Normal 32-36 [facility] Comment on above: Performed By: #### L 100.0100, L500.2500 #### [facility] [address] [place], [address] MCV (RBC) [Entitic vol] 90.4 fL Normal 81-99 [facility] Comment on above: Performed By: #### L 100.0100, L500.2500 #### [facility] [address] [place], [address] Monocytes/100 WBC (Bld) 10.4 % High 0-10 [facility] Comment on above: Performed By: #### L 100.0100, L500.2500 #### [facility] [address] [place], [address] Neutrophils/100 WBC (Bld) 66.7 % Normal 47-70 [facility] Comment on above: Performed By: #### L 100.0100, L500.2500 #### [facility] [address] [place], [address] Nucleated RBC (Bld) [#/Vol] 0 10*3/uL Normal 0-5 [facility] Comment on above: Performed By: #### L 100.0100, L500.2500 #### [facility] [address] [place], [address] Platelet mean volume (Bld) [Entitic vol] 9.9 fL Normal 6.2-12.0 [facility] Comment on above: Performed By: #### L 100.0100, L500.2500 #### [facility] [address] [place], [address] Platelets (Bld) [#/Vol] 203 10*3/uL Normal 150-450 [facility] Comment on above: Performed By: #### L 100.0100, L500.2500 #### [facility] [address] [place], [address] RBC (Bld) [#/Vol] 4.26 10*6/uL Normal 4.2-5.4 [facility] Comment on above: Performed By: #### L 100.0100, L500.2500 #### [facility] [address] [place], [address] RDW SD 38.9 fl Normal 35.1-43.9 [facility] Comment on above: Performed By: #### L 100.0100, L500.2500 #### [facility] [address] [place], [address] WBC (Bld) [#/Vol] 10.1 10*3/uL Normal 4.4-11.0 [facility] Comment on above: Performed By: #### L 100.0100, L500.2500 #### [facility] [address] [place], [address] Emergency Department Summary on 01-16-2024 Emergency Department Summary [facility] Medical Records Department [address] [place] [address] Emergency Department Summary 01/16/24 MR#: [id number] Acct: [id number] Name: AIDAN PERAZA Rep #: [id number] : 1995 28 From: Tal Brandon MD PCP: Dr. Miguel A Pappas MD Status:REG ER Location: ED HPI History of Present Illness Chief Complaint: Complaint Detail of Chief Complaint: Frequency, discomfort and flank pain Informant: patient Onset/Context/Timing Onset: Days (Flank pain started January 13) Context: Sudden Onset Timing: Continuous and Waxes and wanes Quality: Pain Location: Flank Current Severity: Mild Maximum Severity: Severe Worsened by: Movement, walking, Relieved by: Nothing Associated Symptoms Associated Symptoms: Nausea, urinary symptoms, no shaking chills. Narrative Narrative: Patient is a 28-year-old female. She presents with flank pain, discomfort with urination and frequency as well as mild urgency. She denies history of renal or ureterolithiasis. Maternal grandmother had history of kidney stones. Subjective fever without documented fever. She denies headache, visual, ocular auditory symptoms. She denies upper respiratory tract infectious symptoms. She denies vomiting or diarrhea. Last menses approximately 2 weeks ago. She has no signs or symptoms of . She uses no form of control. She denies vaginal symptoms. Prior similar symptoms: No Recent Illness/Hospitalization: No [facility] Medical History Laceration with foreign body of left index finger without damage to nail, initial encounter Puncture wound without foreign body of left index finger without damage to nail, initial encounter Laceration of left index finger with foreign body Puncture wound of left index finger Home Medications ???Medication ???Instructions ???Recorded ???Last Taken ???Type cephalexin 500 mg capsule 500 mg PO Q6 #40 CAPSULES 01/16/24 Unknown Rx ketorolac 10 mg tablet 10 mg PO Q6H 3 days #12 tabs 01/16/24 Unknown Rx Allergy/AdvReac Type Severity Reaction Status Date / Time No Known Allergies Allergy Verified 01/16/24 18:19 Social History (Updated 01/16/24 @ 21:[address] Tal Brandon MD) household members: spouse Smoking Status: Never smoker ROS ROS ED Constitutional Constitutional ED: Reports chills, fever(s) and subjective; Denies sweats Eyes Eyes: Denies blurry vision, change in vision or diplopia ENT ENT ED: Denies ear pain, rhinorrhea or sore throat Cardiovascular Cardiovascular: Denies chest pain or palpitations Respiratory/Chest Respiratory/Chest: Denies cough, dyspnea or dyspnea on exertion Gastrointestinal Gastrointestinal: Reports nausea; Denies abdominal pain, diarrhea, melena or vomiting Genitourinary Genitourinary ED: Reports urinary frequency and other Details: Urgency and discomfort with urination. ; Denies hematuria Musculoskeletal Musculoskeletal: Reports other Details: Flank pain Integumentary Denies rash Neurologic Neurologic: Denies headache(s) or paresthesias Psychiatric Psychiatric: Denies anxiety or depression Hematologic/Lymphatic Hematologic/Lymphatic: Reports systems reviewed and no addt'l complaints, except as documented Allergic/Immunologic Allergic/Immunologic ED: Denies mouth swelling or tongue swelling EXAM Physical Exam Const Vital Signs: 01/16/24 18:19 01/16/24 19:21 01/16/24 20:00 Temperature 97.9 F 98.5 F 98 F Temperature Source Temporal Oral Oral Pulse Rate 99 64 67 Respiratory Rate 18 16 16 Blood Pressure 129/89 H 120/70 122/70 H Blood Pressure Mean 102 86 87 Pulse Ox 100 99 98 Oxygen Delivery Method Room Air Room Air Room Air Positive well nourished and well developed Constitutional Narrative: Patient appears ill and in discomfort. General Appearance ED: well developed; Negative for cyanotic, diaphoretic or pallor HEENT Reports moist mucous membranes HEENT Narrative: Head is atraumatic and normocephalic. Ears normal. Eyes PERRL and EOMs intact bilaterally General Eye ED: Negative for pale conjunctiva or scleral icterus Neck no lymphadenopathy, supple and no JVD Resp normal respiratory effort and clear to auscultation bilaterally Cardio regular rate, regular rhythm, S1 normal heart sound, S2 normal heart sound and no murmurs GI normal to inspection, nondistended, normoactive bowel sounds, non-distended and no masses; Negative for non-tender or hepatosplenomegaly Palpation: tender epigastric Back/Spine General Back: CVA tenderness bilateral Cervical Spine: Negative for cervical spine tenderness Thoracic Spine / Upper Back: Negative for thoracic spinal tenderness Lumbar Spine / Lower Back: Negative for lumbar spinal tenderness Extremity normal to inspection (more content not included)... Normal [facility] ,Serum,hCG Quali.on 01-16-2024 HCG, SERUM QUAL Negative Normal [facility] Comment on above: Order Comment: if fe male and of childbearing age (8-55 years old) Performed By: #### L 700.6800 #### [facility] [address] [place], [address] Urinalysis, Completeon 01-15 BACTERIA 1+ /hpf Normal None Seen [facility] Comment on above: Order Comment: KERRY CTOR TO SPECIFY Performed By: #### B TS, L100.0100 #### [facility] [address] [place], [address] RBC 0-5 SEEN Normal 0-5 [facility] Comment on above: Order Comment: KERRY CTOR TO SPECIFY Performed By: #### B TS, L100.0100 #### [facility] [address] [place], [address] WBC 5-10 SEEN Normal 0-5 [facility] Comment on above: Order Comment: KERRY CTOR TO SPECIFY Performed By: #### B TS, L100.0100 #### [facility] [address] [place], [address] EPI,SQUAMOUS 0-5 SEEN Normal 5-10 [facility] Comment on above: Order Comment: KERRY CTOR TO SPECIFY Performed By: #### B TS, L100.0100 #### [facility] [address] [place], [address] Mucus Ql (Urine sed) 0 SEEN Normal [facility] Comment on above: Order Comment: KERRY CTOR TO SPECIFY Performed By: #### B TS, L100.0100 #### [facility] [address] [place], [address] Miscellaneous Lab Procedureo n 01-15-2024 [facility] LAB TEST Normal [facility] Comment on above: Order Comment: PN Result Comment: TEST RESULTS LIMITS Pregnenolone, MS 113 ng/dL This test was developed and its performance characteristics determined by [facility]. It has not been cleared or approved by the Food and Drug Administration. Reference Range: Adults: <151 TESTING PERFORMED AT [facility]. ORIGINAL REPORT ON FILE IN LAB CONTAINS ADDITIONAL TEST SITE INFORMATION. Performed By: #### Miguel TS, L100.0100 #### [facility] [address] [place], [place], [address] 17-Hydroxyprogesteroneon 17ALPHA [place]-PROG 68 ng/dL Normal . [facility] Comment on above: Order Comment: Test( s) 435333-65-IY Progesterone LCMSwas developed and its performance characteristicsdetermined by [facility]. It has not been cleared or approvedby the Food and Drug Administration.NN Result Comment: Adul t Female Follicular 15 - 70 Luteal 35 - 290 Performed By: #### Miguel BUSTILLOS, L100.0100 #### [facility] [address] [place], [address] PROGESTERONE 4317on 01-11-20 24 PROGESTERONE 0.2 ng/mL Normal . [facility] Comment on above: Order Comment: Test( s) 102149-09-GU Progesterone LCMSwas developed and its performance characteristicsdetermined by [facility]. It has not been cleared or approvedby the Food and Drug Administration.NN Result Comment: Foll icular phase 0.1 - 0.9 Luteal phase 1.8 - 23.9 Ovulation phase 0.1 - 12.0 First trimester 11.0 - 44.3 Second trimester 25.4 - 83.3 Third trimester 58.7 - 214.0 Postmenopausal 0.0 - 0.1 Performed at: [facility] Lab[address] [id number] Numerical Control Operator: Damion Jones MD, Phone: [phone] Performed at: [address] [id number] Numerical Control Operator: Darrius Donnelly PhD, Phone: [phone] Performed By: #### B TS, L100.0100 #### [facility] [address] [facility] [place], [place], [address] Androstenedioneon 01-10-2024 ANDROSTENEDIONE 202 ng/dL Normal 41-262 [facility] Comment on above: Order Comment: Test( s) 600534-Lokafzobgsnvluk LCMSwas developed and its performance characteristicsdetermined by [employer]. It has not been cleared or approvedby the Food and Drug Administration. Performed By: #### B TS, L100.0100 #### [facility] [address] [facility] [place], [place], [address] Insulin Levelon 01-10-2024 INSULIN,FASTING 7.8 uIU/mL Normal 2.6-24.9 [facility] Comment on above: Order Comment: Test( s) 563727-Ksrrtcwheoydpoe LCMSwas developed and its performance characteristicsdetermined by [employer]. It has not been cleared or approvedby the Food and Drug Administration. Performed By: #### B TS, L100.0100 #### [facility] [address] [facility] [place], [place], [address] Testosterone [facility]on 01-10-20 [facility] pg/mL Normal 0.0-4.2 [facility] Comment on above: Order Comment: Test( s) 800026-Sbikjsmyvqznkhv LCMSwas developed and its performance characteristicsdetermined by [employer]. It has not been cleared or approvedby the Food and Drug Administration. Performed By: #### Miguel BUSTILLOS, L100.0100 #### [facility] [address] [place], [address] Thyroid Peroxidase ABon 07-2 THYR PEROX AB 10 IU/mL Normal 0-34 [facility] Comment on above: Order Comment: Test( s) 184630-Wqwrzslpgfmfheo LCMSwas developed and its performance characteristicsdetermined by [employer]. It has not been cleared or approvedby the Food and Drug Administration. Result Comment: Perf ormed at: [address] [id number] Numerical Control Operator: Damion Jones MD, Phone: [phone] Performed at: [address] [id number] Numerical Control Operator: Darrius Donnelly PhD, Phone: [phone] Performed By: #### Miguel BUSTILLOS, L100.0100 #### [facility] [address] [place], [address] Basic Metabolic Profile (BMP )on 01-07-2024 BUN/CRE 14.8 RATIO Normal 10-20 [facility] Comment on above: Performed By: #### Miguel BUSTILLOS, L100.0100 #### [facility] [address] [place], [address] CA,Total 9.2 mg/dL Normal 8.5-10.1 [facility] Comment on above: Performed By: #### Miguel BUSTILLOS, L100.0100 #### [facility] [address] [place], [address] Chloride [Moles/Vol] 105 mmol/L Normal 98-107 [facility] Comment on above: Performed By: #### Miguel BUSTILLOS, L100.0100 #### [facility] [address] [place], [address] CO2 [Moles/Vol] 25.0 mmol/L Normal 21.0-32.0 [facility] Comment on above: Performed By: #### Miguel BUSTILLOS, L100.0100 #### [facility] [address] [place], [address] Creatinine [Mass/Vol] 0.95 mg/dL Normal 0.55-1.02 [facility] Comment on above: Result Comment: The validity of the calculated GFR GFRAA in patients over 70 years has not been determined. Clinical correlation is essential. Performed By: #### Miguel BUSTILLOS, L100.0100 #### [facility] [address] [place], [address] EST GFR - AA 91 mL/min Normal >60 [facility] Comment on above: Result Comment: Afri can [place] GFR Calc Performed By: #### Miguel BUSTILLOS, L100.0100 #### [facility] [address] [place], [address] GAP 7 Normal 5-15 [facility] Comment on above: Performed By: #### Miguel BUSTILLOS, L100.0100 #### [facility] [address] [place], [address] GFR/1.73 sq M.predicted among non-blacks MDRD (S/P/Bld) [Vol rate/Area] 76 mL/min/{1.73_m2} Normal >60 [facility] Comment on above: Result Comment: Non- GFR Calc Performed By: #### Miguel BUSTILLOS, L100.0100 #### [facility] [address] [place], [address] Glucose [Mass/Vol] 96 mg/dL Normal 74-106 [facility] Comment on above: Performed By: #### Miguel BUSTILLOS, L100.0100 #### [facility] [address] [place], [address] Potassium [Moles/Vol] 3.9 mmol/L Normal 3.5-5.1 [facility] Comment on above: Performed By: #### Miguel BUSTILLOS, L100.0100 #### [facility] [address] [place], [address] Sodium [Moles/Vol] 137 mmol/L Normal 136-145 [facility] Comment on above: Performed By: #### Miguel BUSTILLOS, L100.0100 #### [facility] [address] [place], [address] Urea nitrogen [Mass/Vol] 14 mg/dL Normal 7-18 [facility] Comment on above: Performed By: #### Miguel BUSTILLOS, L100.0100 #### [facility] [address] [place], [address] CORTISOL SERUMon 01-07-2024 CORTISOL 21.10 ug/dL Normal 3.44-22.45 [facility] Comment on above: Result Comment: Adul t (AM) 5.27 - 22.45 ug/dL Adult (PM) 3.44 - 16.76 ug/dL Please note revised CORTISOL reference range effective 2019. Performed By: #### Miguel BUSTILLOS, L100.0100 #### [facility] [address] [place], [address] Lipid Profileon 01-07-2024 Cholesterol [Mass/Vol] 196 mg/dL Normal 200 [facility] Comment on above: Result Comment: <200 mg/dL Desirable 200-240 mg/dL Borderline >240 mg/dL High Risk Performed By: #### Miguel BUSTILLOS, L100.0100 #### [facility] [address] [place], [address] Cholesterol in HDL [Mass/Vol] 102 mg/dL Normal [facility] Comment on above: Result Comment: The drugs N-Acetylcysteine and Metamizole may falsely depress this assay. Reference Range HDL <40 mg/dL Low HDL Cholesterol HDL >or= 60 mg/dL High HDL Cholesterol Performed By: #### Miguel BUSTILLOS, L100.0100 #### [facility] [address] [place], [address] Cholesterol in LDL [Mass/Vol] 85 mg/dL Normal 0-130 [facility] Comment on above: Performed By: #### B TS, L100.0100 #### [facility] [address] [place], [address] Cholesterol in VLDL [Mass/Vol] 9 mg/dL Normal 5-40 [facility] Comment on above: Performed By: #### B TS, L100.0100 #### [facility] [address] [place], [address] Triglyceride [Mass/Vol] 45 mg/dL Normal [facility] Comment on above: Result Comment: The drugs N-Acetylcysteine and Metamizole may falsely depress this assay. Serum Triglycerides Reference Interval Normal <150 mg/dL Borderline high 150 - 199 mg/dL High 200 - 499 mg/dL Very High > or = 500 mg/dL Performed By: #### B TS, L100.0100 #### [facility] [address] [place], [address] Clinical Summary: Cj sanders 07-18-2021 25 [employer]astics Invalid Interpretation Code [facility] Work Phone: Clinical Summary: Scanned Nm story Summaryon 07-18-2021 brother(s) of patient alive or Unknown Invalid Interpretation Code [facility] Work Phone: Data entered by patient exercise frequency 7 days per week Invalid Interpretation Code [facility] Work Phone: Data entered by patient exercise type walking Invalid Interpretation Code [facility] Work Phone: data entered by patient, alcohol (ethanol or ETOH) use No Invalid Interpretation Code [facility] Work Phone: data entered by patient, drug (of abuse) use No Invalid Interpretation Code [facility] Work Phone: data entered by patient, Employer Name Employed Invalid Interpretation Code [facility] Work Phone: data entered by patient, exercise history Yes Invalid Interpretation Code [facility] Work Phone: Data entered by patient, problem list Patient Denies Medical Problems or Conditions Invalid Interpretation Code [facility] Work Phone: data entered by patient, social history, current smoker never smoker Invalid Interpretation Code [facility] Work Phone: data entered by patient, social history, marital status Invalid Interpretation Code [facility] Work Phone: Denies Surgical History Patient Denies Past Surgical History Invalid Interpretation Code [facility] Work Phone: father of patient is alive or Alive Invalid Interpretation Code [facility] Work Phone: Housing Type: apartment, house, halfway, trailer, none House Invalid Interpretation Code [facility] Work Phone: housing unit size (asthma environmental history, housing) (from single family to don't know) 1 Floor Invalid Interpretation Code [facility] Work Phone: mother of patient is alive or Alive Invalid Interpretation Code [facility] Work Phone: Number of dependent children No Invalid Interpretation Code [facility] Work Phone: sister of patient(s) alive or Unknown Invalid Interpretation Code [facility] Work Phone: Office Visit: Workers Comp - Consult, Rm:on 07-18-2021 NEGATED: Highlighted rowTobacco smoking status Tobacco smoking status Invalid Interpretation Code [facility] Work Phone: XR FINGER 2ND DIGIT 3 VIEWS LEFTon 06-27-2021 XR FINGER 2ND DIGIT 3 VIEWS LEFT ORIGINAL EXAMINATION: THREE XRAY VIEWS OF THE LEFT FINGERS 06/27/2021 1:55 pm COMPARISON: None. HISTORY: ORDERING SYSTEM PROVIDED HISTORY: Reason for Exam: needle injury to distal phalanx FINDINGS: No acute fracture or bony irregularity is identified. There is a tiny 1 mm radiopaque density seen amongst the nailbed on frontal and oblique views however is not well seen on dedicated lateral view and may overlie the bony structures indicating placement adjacent to the bony tuft towards the ulnar side. IMPRESSION: Tiny 1 mm radiopaque density of the nailbed versus adjacent to the bony tuft with no underlying bony irregularity noted. Interpreted by: Aiden Nagel MD Preliminary Report By: Aiden Nagel MD Electronically signed By Aiden Nagel MD Dictated Date: 06/27/2021 2:08:39 PM Prelim Date: 06/27/2021 2:14:05 PM Sign Date: 06/27/2021 2:14:05 PM Ordering Provider: SVITLANA HAND [facility] ([place]) Vital Signs Date Time Vital Sign Value Performing Clinician Facility 12-28-2024 11:33-0400 Body height 175.[address] Miguel A Pappas MD Work Phone: [facility] 12-28-2024 11:33-0400 Body mass index (BMI) [Ratio] 28.1 kg/m2 Dr. Miguel A Pappas MD Work Phone: [facility] 12-28-2024 11:33-0400 Body weight 86.[address] Miguel A Pappas MD Work Phone: [facility] 12-28-2024 11:33-0400 Diastolic blood pressure 74 mm[Hg] Dr. Miguel A Pappas MD Work Phone: [facility] 12-28-2024 11:33-0400 Systolic blood pressure 113 mm[Hg] Dr. Miguel A Pappas MD Work Phone: [facility] 12-25-2024 11:44-0400 Body height 175.[address] Miguel A Pappas MD Work Phone: [facility] 12-25-2024 11:44-0400 Body mass index (BMI) [Ratio] 28 kg/m2 Dr. Miguel A Pappas MD Work Phone: [facility] 12-25-2024 11:44-0400 Body weight 86.[address] Miguel A Pappas MD Work Phone: 0(878)612-448478 [place] [address] 12-25-2024 11:44-0400 Diastolic blood pressure 69 mm[Hg] Dr. Miguel A Pappas MD Work Phone: 0(703)605-013178 [place] [address] 12-25-2024 11:44-0400 Systolic blood pressure 111 mm[Hg] Dr. Miguel A Pappas MD Work Phone: 6(611)573-388678 [place] [address] 12-17-2024 13:12-0400 Body height 175.[address] Miguel A Pappas MD Work Phone: 7(080)336-888078 [place] [address] 12-17-2024 13:12-0400 Body mass index (BMI) [Ratio] 28.3 kg/m2 Dr. Miguel A Pappas MD Work Phone: 1(668)096-234778 [place] [address] 12-17-2024 13:12-0400 Body weight 87.[address] Miguel A Pappas MD Work Phone: [facility] 12-17-2024 13:12-0400 Diastolic blood pressure 73 mm[Hg] Dr. Miguel A Pappas MD Work Phone: 6(318)470-949178 [place] [address] 12-17-2024 13:12-0400 Systolic blood pressure 123 mm[Hg] Dr. Miguel A Pappas MD Work Phone: 3(784)810-969078 [place] [address] 12-08-2024 15:44-0400 Body height 175.[address] Miguel A Pappas MD Work Phone: 6(058)234-544678 [place] [address] 12-08-2024 15:43-0400 Body mass index (BMI) [Ratio] 28.2 kg/m2 Dr. Miguel A Papaps MD Work Phone: [facility] 12-08-2024 15:43-0400 Body weight 86.[address] Miguel A Pappas MD Work Phone: [facility] 12-08-2024 15:43-0400 Diastolic blood pressure 72 mm[Hg] Dr. Miguel A Pappas MD Work Phone: [facility] 12-08-2024 15:43-0400 Systolic blood pressure 118 mm[Hg] Dr. Miguel A Pappas MD Work Phone: [facility] 11-30-2024 14:58-0400 Body height 175.[address] Miguel A Pappas MD Work Phone: [facility] 11-30-2024 14:58-0400 Body mass index (BMI) [Ratio] 28.2 kg/m2 Dr. Miguel A Pappas MD Work Phone: [facility] 11-30-2024 14:58-0400 Body weight 86.[address] Miguel A Pappas MD Work Phone: [facility] 11-30-2024 14:58-0400 Diastolic blood pressure 70 mm[Hg] Dr. Miguel A Pappas MD Work Phone: [facility] 11-30-2024 14:58-0400 Systolic blood pressure 122 mm[Hg] Dr. Miguel A Pappas MD Work Phone: [facility] 11-20-2024 08:08-0400 Body height 175.[address] Miguel A Pappas MD Work Phone: [facility] 11-20-2024 08:08-0400 Body mass index (BMI) [Ratio] 28 kg/m2 Dr. Miguel A Pappas MD Work Phone: [facility] 11-20-2024 08:08-0400 Body weight 85.[address] Miguel A Pappas MD Work Phone: [facility] 11-20-2024 08:08-0400 Diastolic blood pressure 68 mm[Hg] Dr. Miguel A Pappas MD Work Phone: [facility] 11-20-2024 08:08-0400 Systolic blood pressure 122 mm[Hg] Dr. Miguel A Pappas MD Work Phone: [facility] 11-06-2024 11:36-0400 Body mass index (BMI) [Ratio] 27.8 kg/m2 Dr. Miguel A Pappas MD Work Phone: 6(960)278-996078 [place] [address] 11-06-2024 11:36-0400 Body weight 85.[address] Miguel A Pappas MD Work Phone: 2(713)510-889979 [address] 11-06-2024 11:36-0400 Diastolic blood pressure 74 mm[Hg] Dr. Miguel A Pappas MD Work Phone: 6(742)461-116379 [address] 11-06-2024 11:36-0400 Systolic blood pressure 130 mm[Hg] Dr. Miguel A Pappas MD Work Phone: 9(864)367-287579 [address] 10-21-2024 08:19-0400 Body mass index (BMI) [Ratio] 27.5 kg/m2 Dr. Miguel A Pappas MD Work Phone: 0(431)528-737178 [place] [address] 10-21-2024 08:19-0400 Body weight 84.[address] Miguel A Pappas MD Work Phone: [facility] 10-21-2024 08:19-0400 Diastolic blood pressure 68 mm[Hg] Dr. Miguel A Pappas MD Work Phone: [facility] 10-21-2024 08:19-0400 Systolic blood pressure 112 mm[Hg] Dr. Miguel A Pappas MD Work Phone: 5(493)981-051078 [place] [address] 09-24-2024 11:35-0400 Body height 175.[address] Miguel A Pappas MD Work Phone: 2(240)934-258078 [place] [address] 09-24-2024 11:35-0400 Body mass index (BMI) [Ratio] 26.9 kg/m2 Dr. Miguel A Pappas MD Work Phone: 5(565)247-988151 [place] [address] 09-24-2024 11:35-0400 Body weight 82.[address] Miguel A Pappas MD Work Phone: 6(723)886-186751 [place] [address] 09-24-2024 11:35-0400 Diastolic blood pressure 76 mm[Hg] Dr. Miguel A Pappas MD Work Phone: 3(326)997-581851 [place] [address] 09-24-2024 11:35-0400 Systolic blood pressure 128 mm[Hg] Dr. Miguel A Pappas MD Work Phone: 3(571)355-695951 [place] [address] 08-26-2024 14:20-0400 Body height 175.[address] Miguel A Pappas MD Work Phone: 2(437)047-077551 [place] [address] 08-26-2024 14:20-0400 Body mass index (BMI) [Ratio] 26.6 kg/m2 Dr. Miguel A Pappas MD Work Phone: 1(751)795-970751 [place] [address] 08-26-2024 14:20-0400 Body weight 81.[address] Miguel A Pappas MD Work Phone: 8(259)731-912951 [place] [address] 08-26-2024 14:20-0400 Diastolic blood pressure 71 mm[Hg] Dr. Miguel A Pappas MD Work Phone: 6(486)631-844151 [place] [address] 08-26-2024 14:20-0400 Systolic blood pressure 132 mm[Hg] Dr. Miguel A Pappas MD Work Phone: 6(959)557-848251 [place] [address] 07-29-2024 09:13-0500 Body height 175.[address] Miguel A Pappas MD Work Phone: 9(122)416-056551 [place] [address] 07-29-2024 09:12-0500 Body mass index (BMI) [Ratio] 25.7 kg/m2 Dr. Miguel A Pappas MD Work Phone: 3(105)377-819651 [place] [address] 07-29-2024 09:12-0500 Body weight 79.[address] Miguel A Pappas MD Work Phone: 2(647)581-791751 [place] [address] 07-29-2024 09:12-0500 Diastolic blood pressure 74 mm[Hg] Dr. Miguel A Pappas MD Work Phone: [facility] 07-29-2024 09:12-050 Systolic blood pressure 124 mm[Hg] Dr. Miguel A Pappas MD Work Phone: [facility] NEGATED: Highlighted [id number] 11:19-0500 Body height 175.26 cm Ronda Jackson RN [facility] Work Phone: NEGATED: Highlighted [id number] 11:19-050 Body height 175 cm Ronda Jackson RN [facility] Work Phone: NEGATED: Highlighted [id number] 11:19-0500 Body mass index (BMI) [Ratio] 22.38 kg/m2 Ronda Jackson RN [facility] Work Phone: NEGATED: Highlighted [id number] 11:19-0500 Body weight 68.49 kg Ronda Jackson RN [facility] Work Phone: NEGATED: Highlighted [id number] 11:19-0500 Body weight 69 kg Ronda Jackson RN [facility] Work Phone: Encounters Encounter Date Encounter Type Care Provider Facility Start: 01-04-2025 ambulatory Namita Mcgraw cility:[facility] Start: 12-28-2024 End: 12-28-[address] Namita Garcia DO -[facility] Work Phone: Start: 12-28-2024 End: 12-28-[address] Miguel A Pappas MD Work Phone: -[facility] Start: 12-25-2024 End: 12-25-[address] Katelin Lazcano MD -[facility] Work Phone: Start: 12-25-2024 End: 12-25-[address] Miguel A Pappas MD Work Phone: -[facility] Start: 12-23-2024 End: 12-23-[address] Miguel A Pappas MD Work Phone: -Ultrasound [facility] Start: 12-23-2024 End: 12-23-[address] Katelin Lazcano MD -Ultrasound [facility] Work Phone: Start: 12-23-2024 End: 12-23-2024 ambulatory Miguel A Pappas Facility:[facility] Start: 12-17-2024 End: 12-17-[address] Katelin Lazcano MD -[facility] Work Phone: Start: 12-17-2024 End: 12-17-[address] Miguel A Pappas MD Work Phone: -[facility] Start: 12-08-2024 End: 12-08-2024 Patient encounter procedure Melinda MADDEN -[facility] Work Phone: Start: 12-08-2024 End: 12-08-[address] Miguel A Pappas MD Work Phone: [facility] Work Phone: Start: 11-30-2024 End: 11-30-[address] Miguel A Pappas MD Work Phone: [facility] Work Phone: Start: 11-30-2024 End: 11-30-2024 Patient encounter procedure Gaby Reynolds CNM -[facility] Work Phone: Start: 11-30-2024 End: 11-30-2024 Patient encounter procedure Gaby Reynolds CNM -[facility] Work Phone: Start: 11-30-2024 End: 11-30-[address] Miguel A Pappas MD Work Phone: [facility] Work Phone: Start: 11-30-2024 End: 11-30-2024 ambulatory Miguel A Pappas Facility:[facility] Start: 11-20-2024 End: 11-20-2024 Patient encounter procedure Gaby Reynolds [facility] -[facility] Work Phone: Start: 11-20-2024 End: 11-20-[address] Miguel A Pappas MD Work Phone: [facility] Work Phone: Start: 11-06-2024 End: 11-06-2024 Patient encounter procedure Gaby Reynolds [facility] -[facility] Work Phone: Start: 11-06-2024 End: 11-06-2024 ambulatory Miguel A Elyse Facility:[facility] Start: 10-21-2024 End: 10-21-2024 Patient encounter procedure Melinda Bauer NP-C -[facility] Work Phone: Start: 10-21-2024 End: 10-21-2024 ambulatory Miguel A Pappas Facility:[facility] Start: 10-09-2024 ambulatory Alanna Davis y:[facility] Start: 10-06-2024 End: 10-06-[address] Miguel A Pappas MD Work Phone: [facility] Work Phone: Start: 10-06-2024 End: 10-06-2024 Patient encounter procedure Melinda Bauer NP-[place] -Ultrasound, [facility] Work Phone: Start: 10-06-2024 End: 10-06-2024 ambulatory Miguel A Pappas Facility:[facility] Start: 09-24-2024 End: 09-24-2024 Patient encounter procedure Melinda MADDEN -[facility] Work Phone: Start: 09-24-2024 End: 09-24-2024 ambulatory Miguel A Pappas Facility:[facility] Start: 09-19-2024 End: 09-19-[address] Miguel A Pappas MD Work Phone: [facility] Work Phone: Start: 09-19-2024 End: 09-19-[address] Namita Garcia DO [facility] Work Phone: Start: 09-19-2024 End: 09-19-2024 ambulatory Namita Garcia Facility:[facility] Start: 09-08-2024 End: 09-08-[address] Miguel A Pappas MD Work Phone: [facility] Work Phone: Start: 09-08-2024 End: 09-08-[address] Katelin Lazcano MD -Ultrasound, [facility] Work Phone: Start: 09-08-2024 End: 09-08-2024 ambulatory [place] Facility:[facility] Start: 08-26-2024 End: 08-26-[address] Namita Garcia DO -[facility] Work Phone: Start: 08-26-2024 End: 08-26-2024 ambulatory Namita Garcia Facility:[facility] Start: 08-25-2024 End: 08-25-[address] Miguel A Pappas MD Work Phone: [facility] Work Phone: Start: 08-25-2024 End: 08-25-[address] Katelin Lazcano MD -Ultrasound, [facility] Work Phone: Start: 08-25-2024 End: 08-25-2024 ambulatory Katelin Lazcano Facility:[facility] Start: 08-10-2024 End: 08-10-[address] Miguel A Pappas MD Work Phone: [facility] Work Phone: Start: 08-10-2024 End: 08-10-[address] Katelin Lazcano MD -Ultrasound, [facility] Work Phone: Start: 08-10-2024 End: 08-10-2024 ambulatory Katelin Lazcano Facility:[facility] Start: 07-29-2024 End: 07-29-[address] Katelin Lazcano MD -[facility] Work Phone: Start: 07-29-2024 End: 07-29-2024 ambulatory Miguel A Pappas Facility:[facility] Start: 07-29-2024 End: 07-29-2024 ambulatory Katelin Lazcano Facility:[facility] Start: 05-25-2024 End: 05-25-[address] Miguel A Pappas MD Work Phone: -Ultrasound, [facility] Work Phone: Start: 05-25-2024 End: 05-25-2024 [facility] Start: 05-17-2024 ambulatory [facility] Facility:[facility] Start: 05-04-2024 End: 05-16-2024 ambulatory [facility] Facility:[facility] Start: 05-04-2024 End: 05-16-[address] Miguel A Pappas MD Work Phone: -Laboratory Work Phone: Start: 04-23-2024 End: 04-23-[address] Miguel A Pappas MD Work Phone: -Laboratory [place] Work Phone: Start: 04-23-2024 End: 04-23-2024 ambulatory [facility] Facility:[facility] Start: 04-20-2024 End: 04-20-2024 ambulatory [facility] Facility:[facility] Start: 01-16-2024 End: 01-16-2024 Emergency department patient visit Tal Brandon Facility:[facility] Start: 01-07-2024 End: 01-07-2024 ambulatory [facility] Facility:[facility] Procedures Date Procedure Procedure Detail Performing Clinician Start: 12-23-2024 Ultrasound scan for growth Dr. Miguel A Pappas MD Work Phone: Start: 11-30-2024 Beta-hemolytic Streptococcus culture Dr. Miguel A Pappas MD Work Phone: Start: 10-06-2024 Ultrasound scan for growth Dr. Miguel A Pappas MD Work Phone: Start: 09-19-2024 Serologic 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 Dr. Miguel A Pappas MD Work Phone: Start: 09-08-2024 Ultrasound scan for growth Dr. Miguel A Pappas MD Work Phone: Start: 08-25-20[address]vaginal obst[address] ic ultrasonography Dr. Miguel A Pappas MD Work Phone: Start: 08-10-2024 Ultrasonography in f irst trimester Dr. Miguel A Pappas MD Work Phone: Start: 07-29-[address] Jovanny Pappas MD Work Phone: Start: 07-29-2024 Hepatitis B surface antigen measurement Dr. Miguel A Pappas MD Work Phone: Start: 07-29-2024 Hepatitis C antibody measurement Dr. Miguel A Pappas MD Work Phone: Comment on above: Non Reactive: < 0.8 Equivocal: >/= 0.8 to < 1.0 Reactive: >/= 1.0The CDC requires that a reactive/equivocal HCV antibody result be sent out for confirmation. HCV Quant by PCR testing. Start: 07-29-[address] Miguel A Pappas MD Work Phone: Comment on above: Antibody Results Int erpretation of Immune Status Non Reactive Presumed Non-Immune Equivocal Equivocal Reactive Presumed Immune Start: 05-25-2024 Transvaginal obstetr ic ultrasonography Dr. Miguel A Pappas MD Work Phone: Start: 07-18-2021 End: 07-18-2021 BP scrn no perf at interval Cash Amaya MD Work Phone: Start: 07-18-2021 End: 07-18-2021 Calc BMI norm parameters Cash jolly MD Work Phone: Start: 07-18-2021 End: 07-18-2021 Current tobacco non-user cad cap copd pv dm Cash Amaya MD Work Phone: Start: 07-18-2021 End: 07-18-2021 Docrev cur meds by elig clin Cash Amaya MD Work Phone: Start: 07-18-2021 End: 07-18-2021 No doc of pain Cash Amaya MD Work Phone: Start: 07-18-2021 End: 07-18-2021 Patient encounter procedure Cash Amaya MD Work Phone: NEGATED: Highlighted rowStart: 07-18-2021 End: 07-18-2021 Documentation of current medications Ronda Jackson RN Plan of Treatment Date Care Activity Detail Author Start: 07-18-2021 End: 07-18-2021 Patient encounter procedure Appointment [facility] Work Phone: Start: 07-18-2021 End: 07-18-2021 Radex fingr minimum 2 views XR FINGER 2+VWS 2ND DIGIT-LT [facility] Work Phone: CBC W Auto Different ial panel - Blood [facility] Measurement of gluco se 2 hours after glucose challenge for glucose tolerance test [facility] Serologic 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 [facility] Streptococcus agalac tiae [Presence] in Unspecified specimen by Organism specific culture [facility] Ultrasound scan for growth [facility] Ultrasound scan for growth [facility] Payers Date Payer Category Payer Self-pay 2024 Unknown [id number] Unknown [id number] Unknown [id number] 2.16.8 40.1.983973.3.579.2.462 Unknown [id number] 2.16.8 40.1.428648.3.579.2.462 Unknown [id number] 2.16.8 40.1.628526.3.579.2.462 Unknown [id number] 2.16.8 40.1.634356.3.579.2.462 Unknown [id number] 2.16.8 40.1.614995.3.579.2.462 Unknown [id number] 2.16.8 40.1.406740.3.579.2.462 Unknown [id number] 2.16.8 40.1.272992.3.579.2.462 Unknown [id number] 2.16.8 40.1.445375.3.579.2.462 Unknown [id number] 2.16.8 40.1.851013.3.579.2.462 Unknown [id number] 2.16.8 40.1.679949.3.579.2.462 Unknown [id number] 2.16.8 40.1.036786.3.579.2.462 Unknown [id number] 2.16.8 40.1.840858.3.579.2.462 Unknown [id number] 2.16.8 40.1.119656.3.579.2.462 Unknown [id number] 2.16.8 40.1.370189.3.579.2.462 Unknown [id number] 2.16.8 40.1.598787.3.579.2.462 Unknown [id number] 2.16.8 40.1.863202.3.579.2.462 Unknown [id number] 2.16.8 40.1.291504.3.579.2.462 Unknown [id number] 2.16.8 40.1.532934.3.579.2.462 Unknown [id number] 2.16.8 40.1.774813.3.579.2.462 Unknown [id number] 2.16.8 40.1.115671.3.579.2.462 Unknown [id number] 2.16.8 40.1.875435.3.579.2.462 Unknown [id number] 2.16.8 40.1.616865.3.579.2.462 Unknown [id number] 2.16.8 40.1.654038.3.579.2.462 Unknown [id number] 2.16.8 40.1.171834.3.579.2.462 Unknown [id number] 2.16.8 40.1.323740.3.579.2.462 Unknown [id number] 2.16.8 40.1.694951.3.579.2.462 Unknown [id number] 2.16.8 40.1.897435.3.579.2.462 Unknown [id number] 2.16.8 40.1.743942.3.579.2.462 Social History Date Type Detail Facility Start: 07-28-2024 End: 07-28-2024 Tobacco smoking status NHIS Never smoked tobacco (finding) [facility] Start: 08-21-2024 End: 10-12-2024 Sex Female (finding) [facility] Start: 1995 Sex Assigned At Female [facility] NEGATED: Highlighted rowStart: 07-18-2021 End: 07-18-2021 Alcohol use Alcohol use [facility] Work Phone: NEGATED: Highlighted rowStart: 07-18-2021 End: 07-18-2021 Details of drug misuse behavior Details of drug misuse behavior [facility] Work Phone: NEGATED: Highlighted rowStart: 07-18-2021 End: 07-18-2021 How many days of moderate to strenuous exercise, like a brisk walk, did you do in the last 7 days? How many days of moderate to strenuous exercise, like a brisk walk, did you do in the last 7 days? [facility] Work Phone: NEGATED: Highlighted rowStart: 07-18-2021 End: 07-18-2021 Assertion Never smoker [facility] Work Phone: Clinical Notes 07-29-2024 to 12-24-2024 Note Date & Type Note Facility 12-24-2024 Radiology Diagnostic study note [facility] Imaging Services [address] [place], [place] [address] OB Limited With Biometrics MR#: [id number] Acct: [id number] Name: AIDAN PERAZA Rep #: [id number] : 1995 F 29 From: Brett Pina MD PCP: Dr. Miguel A Pappas MD Status: REG CLI Study:OB Limited With Biometrics Date of Exam : 12/23/24 Exam# [id number] Ordering Dr: Katelin Tidwell MD PROCEDURE: OB LIMITED WITH BIOMETRICS 12/23/2024 REASON FOR EXAM: GROWTH TECHNIQUE: OB LIMITED WITH BIOMETRICS COMPARISON: Prior study dated October 06, 2024. FINDINGS LMP: March 23, 2024. Number: 1 Position: Vertex Placental Position: Anterior and not low-lying. Placental Abnormalities: No evidence of previa. DIMENSIONS: Biparietal Diameter: 8.74 cm: 35 weeks and 2 days: 3 percentile/ Head Circumference: 33.13 cm: 37 weeks and 5 days: 11 percentile/ Abdominal Circumference: 33.65 cm: 37 weeks and 4 days: 25th percentile/ Femur Length: 7.1 cm: 36 weeks and 3 days: 4th percentile/ ESTIMATED WEIGHT: 3083 g plus/-462 g ESTIMATED WEIGHT PERCENTILE (24+ weeks): 19 ESTIMATED GESTATIONAL AGE: Baseline: 39 weeks and 2 days By Ultrasound: 36 weeks and 5 days ESTIMATED DATE OF DELIVERY: Baseline: December 28, 2024 By Ultrasound: January 15, 2025 BIOPHYSICAL ASSESSMENT: Amniotic Fluid Volume: 5.1 cm Amniotic Fluid Index: 12.2 cm (8-24 cm normal range) Cardiac Motion: 136 beats per minute (average) Trunk and Limb Motion: Present. MATERNAL ANATOMY: Adnexa: Neither maternal ovary is successfully identified. Single live intrauterine gestation with a mean gestational age of 39 weeks. Themeasurements obtained today fall within lower limits of normal. US/OB Limited With Biometrics IMPRESSION: Single live intrauterine gestation with a mean gestational age of 39 weeks. Themeasurements obtained today fall within lower limits of normal. Reading Location: [facility] CC: Dr. Miguel A Pappas MD; Dr. Katelin Lazcano MD ~ Rfid Technician: Signed [facility] 12-17-2024 Progress note [facility] 11-30-2024 Progress note [facility] 11-30-2024 Progress note Note Date/Time November 30, 2024 3:12pm [facility] [address], [address] [place] [address] OFFICE VISIT Date of Service: 11/30/24 MR#: [id number] Acct: [id number] Name: AIDAN PERAZA Rep #: [id number] : 1995 Provider: MINDY Reynolds Age/Sex: 29/F Location: [place] Status: Signed Intake Vital Signs 11/06/24 11:36 11/20/24 08:08 11/30/24 14:58 Height 5 ft 9 in 5 ft 9 in 5 ft 9 in Weight: 191 lb 6 oz BMI 28.2 BP 122/70 H Intake Visit Reasons: 36wk ob Chief Complaint: 36wk OB 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: No Is patient in pain?: No Allergies No Known Allergies Allergy (Verified 11/30/24 14:56) Medications ?Medication ?Instructions ?Recorded ?Confirmed ?Type PNV 153-FA 400 mcg-om3 35 mg-dha tab PO 07/28/2411/30 History 25 mg-epa 5 mg-fish oil chew tablet Last Menstrual Period: 05/27/24 : No Have you fallen in the past year?: No PFSH PFSH Medical History Laceration with foreign body of left index finger without damage to nail, initial encounter Puncture wound without foreign body of left index finger without damage to nail,initial encounter Laceration of left index finger with foreign body Puncture wound of left index finger Family History Grandmother Cancer Maternal ovarian, colon with metastasis Grandfather Myocardial infarction Maternal-2 VT's Social History adopted: No household members: spouse current occupational status: employed current occupation: [employer] current occupational exposures/hazards: No pets and animals: Yes pets and animals: dog(s) history of recent travel: No sexually active: Yes Smoking Status: Never smoker alcohol intake: never substance use type: does not use well-balanced diet: daily or most days caffeine: No eating out: rarely or never during the past year weight has: remained stable what type of physical activity do you participate in: running, weight training and other details: Kickboxing frequency: 3-4 times per week duration: 45-60 minutes/day john/holiness: Mu-Ism seatbelt use: always do you feel safe at home: Yes 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 OB Visit CH[facility] Calculator Estimated Delivery Date Method Current WG Current Estimate 12/28/24 Ultrasound #1 36w 0d Expected Delivery Route/Plan Labor Preferences- CB/BF classes: enc labor support person: Kelvin labor intervention preferences: [] pain management options preferred: limited cut cord/dad catch: yes : yes PP control planned: [] discussed possible routes of delivery and associated risks: [] special requests: [] Specific Issue/Plans Covid status: [] Flu vaccine: [] Tdap vaccine: declines Rhogam: NA LARC form signed: yes Problem list reviewed and updated with the most current plan of care details and appropriate orders placed. Relevant counseling for the gestational age provided. 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 planning hospital delivery 09/24/24 -?-?-?-?-?-?-?-?-?-?-?-?- 26w 3d 182 lb 6 oz 128/76 Nega tive -?-?-?-?-?-?-?-?-?-?-?-?- Negative 137 26 -?--?-?-?-?-?-?-?-?-?-?-?- -No VB, LOF or CTX. Larc. Ordered growth US and recheck CL. 10/21/24 -?-?-?-?-?-?-?-?-?-?-?-?- 30w 2d 186 lb 4 oz 112/68 Nega tive -?-?-?-?-?-?-?-?-?-?-?-?- Negative 138 30 -?-?-?-?-?-?-?-?-?-?-?-?- MH-No VB, LOF. G ood FM. No concerns 11/06/24 -?-?-?-?-?-?-?-?-?-?-?-?- 32w 4d 188 lb 2 oz 130/74 Nega tive -?-?-?-?-?-?-?-?-?-?-?-?- Negative 135 31 -?-?-?-?-?-?-?-?-?-?-?-?- KW- no vb/lof/ct x. good fm. 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 no concerns today 11/20/24 -?-?-?-?-?-?-?-?-?-?-?-?- 34w 4d 189 lb 8 oz 122/68 Nega tive -?-?-?-?-?-?-?-?-?-?-?-?- Negative 145 34 -?-?-?-?-?-?-?-?-?-?-?-?- KW-no vb/lof/ctx . good fm. no concerns today 11/30/24 -?-?-?-?-?-?-?-?-?-?-?-?- 36w 0d 191 lb 6 oz 122/70 Nega tive -?-?-?-?-?-?-?-?-?-?-?-?- Negative 130 35 Cephalic 1 -?-?-?-?-?-?-?-?-?-?-?-?- 30 -2 KW- no vb/ lof/ctx. good fm. GBS today. ACOG First Trimester First Trimester: Desire for , Alcohol, Tobacco Cessation, Illicit/Recreational Drug/Substance Use, Intimate Partner Violence, Barriers to care, Unstable Housing, Communication Barriers, Environmental/Work Hazards, Anticipated Course of Care, Toxoplasmosis Precations, Use of Any medications, Sexual activity, Exercise, Dental Care, Sauna/Hot tub use, Seat Belt use, Childbirth classes/Hospital facilities, Travel, Indications for Ultrasound and Screening for Aneuploidy; Discussed Second Trimester Second Trimester: Signs and Symptoms of Labor, Selecting a care provider, Reproductive Life Planning & Contreception and Care Planning; Discussed Tobacco Cessation, Discussed Depression/Anxiety and Discussed Intimate Partner Violence Third Trimester Third Trimester: Pain Management Plans, Labor support person(s), Immediate Larc, Signs and Symptoms of Preeclampsia, Feeding No and Family Medical Leave or Disability Forms; Discussed Circumcision preference ROS Const Reports system reviewed and no additional complaints, except as documented Eyes Reports system reviewed and no additional complaints, except as documented ENT Reports system reviewed and no additional complaints, except as documented Card Reports system reviewed and no additional complaints, except as documented Resp Reports system reviewed and no additional complaints, except as documented GI Reports system reviewed and no additional complaints, except as documented, Denies nausea and Denies vomiting Reports system reviewed and no additional complaints, except as documented Musc Reports system reviewed and no additional complaints, except as documented Skin/Breast Reports system reviewed and no additional complaints, except as documented Neuro Yes system reviewed and no additional complaints, except as documented Psych Reports system reviewed and no additional complaints, except as documented Endo Reports system reviewed and no additional complaints, except as documented Ochoa/Lymph Reports system reviewed and no additional complaints, except as documented Aller/Immun Reports system reviewed and no additional complaints, except as documented Exam Const General: cooperative, healthy appearing and no acute distress Orientation: alert, awake and oriented x3 Neck Neck: normal visual inspection and full ROM Resp Effort & Inspection: normal respiratory effort, able to speak in complete sentences and symmetric chest movement GI Inspection: normal to inspection Palpation: soft and other Other: gravid Skin General: no rashes or lesions noted Neuro General: patient alert, patient awake and patient oriented x3 Cognition: normal cognition Speech: speech normal Gait: normal gait Motor: muscle tone normal throughout Extrem General: normal to inspection and full ROM Psych Appearance: grossly normal Mental Status: mental status grossly normal Mood: congruent mood Affect: normal affect Speech and Movement: speech and movement normal Attitude: cooperative Thought Process: normal Thought Content: normal Judgment: judgment good Results POC Urinalysis 2 Dip (Clinic) Office Urine Glucose Negative Last Edit by Socorro Tapia on 11/30/24 15:06 Office Urine Protein Negative Last Edit by Socorro Tapia on 11/30/24 15:06 Coding Level of Care Code OB Routine Diagnoses 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 R76.8 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 (3) FH: ovarian cancer: Status: Acute Comment: Maternal Grandmother (4) Infertility: Status: Acute Comment: 3 years to conceive (5) FH: Down syndrome: Status: Acute Comment: Paternal Aunt (6) Supervision of normal first : Status: Acute Qualifiers: Trimester: third trimester Qualified Code(s): Z34.03 - Encounter for supervision of normal first , third trimester Comment: [id number], CHAVA 12/28/24 Sushma. Kelvin (7) : Status: Acute Qualifiers: Weeks of gestation: 36 weeks Qualified Code(s): Z3A.36 - 36 weeks gestation of Comment: declined genetic & carrier testing, afp screening. Orders: Orders POC Urinalysis 2 Dip (Clinic) Today Culture, Group B Streptococcus Today Z34.03 - Encounter for supervision of normal first , third trimester, Z3A.36 - 36 weeks gestation of Plan Details Additional Comments: ACOG trimester education reviewed and updated. see problem list details for updated plan management information and see below for orders placed at this visit. GA appropriate handout given. Clinical Quality Measures Falls Risk Screening/Assistive Devices Have you fallen in the past year?: No 11/30/24 9793 <Electronically signed by Gaby ivey CNM> Date _ Gaby Blancas Signature: Date (if applicable) CC: ~ [facility] Work Phone: 1(391) 496-527606-06-2025 Progress [facility] [address] [place] [address], [address] [place] [address] OFFICE VISIT Date of Service: 11/20/24 MR#: [id number] Acct: [id number] Name: AIDAN PERAZA Rep #: [id number] : 1995 Provider: MINDY Reynolds Age/Sex: 29/F Location: [facility] Status: Signed Intake Vital Signs 10/21/24 08:19 11/06/24 11:36 11/20/24 08:08 Height 5 ft 9 in 5 ft 9 in 5 ft 9 in Weight: 189 lb 8 oz BMI 28.0 BP 122/68 H Intake Visit Reasons: 34 wk ob Chief Complaint: 34 Week OB 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: No Is patient in pain?: No Allergies No Known Allergies Allergy (Verified 11/20/24 08:11) Medications ?Medication ?Instructions ?Recorded ?Confirmed ?Type PNV 153-FA 400 mcg-om3 35 mg-dha tab PO 07/28/2411/20 History 25 mg-epa 5 mg-fish oil chew tablet Last Menstrual Period: 05/27/24 Zika: Zika virus screening: Negative : No [facility] Medical History Laceration with foreign body of left index finger without damage to nail, initial encounter Puncture wound without foreign body of left index finger without damage to nail,initial encounter Laceration of left index finger with foreign body Puncture wound of left index finger Family History Grandmother Cancer Maternal ovarian, colon with metastasis Grandfather Myocardial infarction Maternal-2 VT's Social History adopted: No household members: spouse current occupational status: employed current occupation: [employer] current occupational exposures/hazards: No pets and animals: Yes pets and animals: dog(s) history of recent travel: No sexually active: Yes Smoking Status: Never smoker alcohol intake: never substance use type: does not use well-balanced diet: daily or most days caffeine: No eating out: rarely or never during the past year weight has: remained stable what type of physical activity do you participate in: running, weight training and other details: Kickboxing frequency: 3-4 times per week duration: 45-60 minutes/day john/holiness: Mu-Ism seatbelt use: always do you feel safe at home: Yes 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 OB Visit CHAVA Calculator Estimated Delivery Date Method Current WG Current Estimate 12/28/24 Ultrasound #1 34w 4d Expected Delivery Route/Plan Labor Preferences- CB/BF classes: enc labor support person: Kelvin labor intervention preferences: [] pain management options preferred: limited cut cord/dad catch: yes : yes PP control planned: [] discussed possible routes of delivery and associated risks: [] special requests: [] Specific Issue/Plans Covid status: [] Flu vaccine: [] Tdap vaccine: declines Rhogam: NA LARC form signed: yes Problem list reviewed and updated with the most current plan of care details and appropriate ordersplaced. Relevant counseling for the gestational age provided. 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 planning hospital delivery 09/24/24 -?-?-?-?-?-?-?-?-?-?-?-?- 26w 3d 182 lb 6 oz 128/76 Nega tive -?-?-?-?-?-?-?-?-?-?-?-?- Negative 137 26 -?-?-?-?-?-?-?-?-?-?-?-?- MH-No VB, LOF or CTX. Larc. Ordered growth US and recheck CL. 10/21/24 -?-?-?-?-?-?-?-?-?-?-?-?- 30w 2d 186 lb 4 oz 112/68 Nega tive -?-?-?-?-?-?-?-?-?-?-?-?- Negative 138 30 -?-?-?-?-?-?-?-?-?-?-?-?- MH-No VB, LOF. G ood FM. No concerns 11/06/24 -?-?-?-?-?-?--?-?-?-?-?-?- 32w 4d 188 lb 2 oz 130/74 Nega tive -?-?-?-?-?-?-?-?-?-?-?-?- Negative 135 31 -?-?-?-?-?-?-?-?-?-?-?-?- KW- no vb/lof/ct x. good fm. 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 no concerns today 11/20/24 -?-?-?-?-?-?-?-?-?-?-?-?- 34w 4d 189 lb 8 oz 122/68 Nega tive -?-?-?-?-?-?-?-?-?-?--?-?- Negative 145 34 -?-?-?-?-?-?-?-?-?-?-?-?- KW-no vb/lof/ctx . good fm. no concerns today ACOG First Trimester First Trimester: Desire for , Alcohol, Tobacco Cessation, Illicit/Recreational Drug/Substance Use, Intimate Partner Violence, Barriers to care, Unstable Housing, Communication Barriers, Environmental/Work Hazards, Anticipated Course of Care, Toxoplasmosis Precations, Use of Any med ications, Sexual activity, Exercise, Dental Care, Sauna/Hot tub use, Seat Belt use, Childbirth classes/Hospital facilities, Travel, Indications for Ultrasound and Screening for Aneuploidy; Discussed Second Trimester Second Trimester: Signs and Symptoms of Labor, Selecting a care provider, Reproductive Life Planning & Contreception and Care Planning; Discussed Tobacco Cessation, Discussed Depression/Anxiety and Discussed Intimate Partner Violence Third Trimester Third Trimester: Pain Management Plans, Labor support person(s), Immediate Larc, Signs and Symptoms of Preeclampsia, Infant Feeding No and Family Medical Leave or Disability Forms; Discussed Circumcision preference ROS Const Reports system reviewed and no additional complaints, except as documented Eyes Reports system reviewed and no additional complaints, except as documented ENT Reports system reviewed and no additional complaints, except as documented Card Reports system reviewed and no additional complaints, except as documented Resp Reports system reviewed and no additional complaints, except as documented GI Reports system reviewed and no additional complaints, except as documented, Denies nausea and Denies vomiting Reports system reviewed and no additional complaints, except as documented Musc Reports system reviewed and no additional complaints, except as documented Skin/Breast Reports system reviewed and no additional complaints, except as documented Neuro Yes system reviewed and no additional complaints, except as documented Psych Reports system reviewed and no additional complaints, except as documented Endo Reports system reviewed and no additional complaints, except as documented Ochoa/Lymph Reports system reviewed and no additional complaints, except as documented Aller/Immun Reports system reviewed and no additional complaints, except as documented Exam Const General: cooperative, healthy appearing and no acute distress Orientation: alert, awake and oriented x3 Neck Neck: normal visual inspection and full ROM Resp Effort & Inspection: normal respiratory effort, able to speak in complete sentences and symmetric chest movement GI Inspection: normal to inspection Palpation: soft and other Other: gravid Skin General: no rashes or lesions noted Neuro General: patient alert, patient awake and patient oriented x3 Cognition: normal cognition Speech: speech normal Gait: normal gait Motor: muscle tone normal throughout Extrem General: normal to inspection and full ROM Psych Appearance: grossly normal Mental Status: mental status grossly normal Mood: congruent mood Affect: normal affect Speech and Movement: speech and movement normal Attitude: cooperative Thought Process: normal Thought Content: normal Judgment: judgment good Results POC Urinalysis 2 Dip (Clinic) Office Urine Glucose Negative Last Edit by Sully Patel on 11/20/24 08 :16 Office Urine Protein Negative Last Edit by Sully Patel on 11/20/24 08 :16 Coding Level of Care Code OB Routine Diagnoses 34 weeks gestation of Z3A.34 Weeks of gestation: 34 weeks Encounter for supervision of normal first in third trimester Z34.03 Trimester: third trimester FH: Down syndrome Z82.79 Infertility FH: ovarian cancer Z80.41 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 (2) Supervision of normal first : Status: Acute Qualifiers: Trimester: third trimester Qualified Code(s): Z34.03 - Encounter for supervision of normal first , third trimester Comment: [id number], CHAVA 12/28/24 Sushma. Kelvin (3) FH: Down syndrome: Status: Acute Comment: Paternal Aunt (4) Infertility: Status: Acute Comment: 3 years to conceive (5) FH: ovarian cancer: Status: Acute Comment: Maternal Grandmother (6) Cervical funneling affecting : Status: Acute Qualifiers: Trimester: second trimester Qualified Code(s): O34.32 - Maternal care for cervical incompetence, second trimester Comment: stable. (7) 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: Status: Acute Comment: confirmatory negative Orders: Orders POC Urinalysis 2 Dip (Clinic) Today Plan Details Additional Comments: ACOG trimester education reviewed and updated. see problem list details for updated plan management information and see below for orders placed atthis visit. GA appropriate handout given. 11/20/24 0830 s CNM> Date _ Gaby Reynolds CNM Cosigner Signature: Date (if applicable) CC: ~ [facility]04-23-2025 Radiology Diagnostic study note [facility] Imaging Services [address] [place], [place] [address] OB Limited With Biometrics MR#: [id number] Acct: [id number] Name: AIDAN PERAZA Rep #: [id number] : 1995 F 29 From: Brett Pina MD PCP: Dr. Miguel A Pappas MD Status: REG CLI Study:OB Limited With Biometrics Date of Exam : 10/06/24 Exam# [id number] Ordering Dr: Melinda Bauer CROP DUSTER CROP DUSTER-C PROCEDURE: OB LIMITED WITH BIOMETRICS 10/06/2024 REASON FOR EXAM: GROWTH US, CHECK CERVICAL LENGTH TECHNIQUE: High resolution obstetric ultrasound performed using a 2D transducer. Standard views obtained, including biometry, anatomy survey, and Doppler studies. COMPARISON: Prior study dated September 08, 2024. FINDINGS Number: 1 Position: Vertex Placental Position: Anterior and not low-lying. Placental Abnormalities: No evidence of previa. DIMENSIONS: Biparietal Diameter: 6.68 cm: 26 weeks and 6 days: 8 percentile/ Head Circumference: 26.22 cm: 28 weeks and 4 days: 30 percentile./ Abdominal Circumference: 23.12 cm: 27 weeks and 3 days: 23rd percentile/ Femur Length: 5.12 cm: 27 weeks and 3 days: 17 percentile/ ESTIMATED WEIGHT: 1076 g plus/-161 g ESTIMATED WEIGHT PERCENTILE (24+ weeks): 17 ESTIMATED GESTATIONAL AGE: Baseline: 28 weeks and 1 day By Ultrasound: December 28, 2024 ESTIMATED DATE OF DELIVERY: Baseline: 27 weeks and 6 days By Ultrasound: December 30, 2024 BIOPHYSICAL ASSESSMENT: Amniotic Fluid Volume: 5.5 cm Amniotic Fluid Index: 14.5 cm (8-24 cm normal range) Cardiac Motion: 160 beats per minute (average) Trunk and Limb Motion: Present. MATERNAL ANATOMY: Adnexa: Neither maternal ovary is successfully identified. Cervical Length (if measured): 3.8 cm. A small amount of fluid is seen within the endocervical canal. The canal measures 0.45 cm. US/OB Limited With Biometrics IMPRESSION: Single live intrauterine gestation with a mean gestational age of 27 weeks and 6days. A small amount of fluid is seen within the endocervical canal. The cervix is dilated measuring 4.5 mm. Cervical length measures 3.8 cm. [facility]: CHANO Bauer; Dr. Miguel A Pappas MD ~ Rfid Technician: Signed [facility]04-10-2025 Evaluation note* Diagnosis Onset Date Resolution Status Admit Date Cervical funneling affecting acute September 24, 2024 11:33am 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 acute September 24, 2024 11:33am FH: Down syndrome acute September 152024 11:33am FH: ovarian cancer acute September 24, 2024 11:33am Infertility acute September 24, 11:33am acute September 24 11:33am Supervision of normal first acute September 24, 2024 11:33am Cervical funneling affecting acute October 21, 2024 8: 17am 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 acute October 21, 2024 8: 17am FH: Down syndrome acute October 8:17am FH: ovarian cancer acute October 8:17am Infertility acute October 21, 2024 8:17am acute October 21, 2024 8:17am Supervision of normal first acute October 21, 2024 8: 17am Cervical funneling affecting acute November 06, 2024 1 1:35am 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 acute November 06, 2024 1 1:35am FH: Down syndrome acute October 11:35am FH: ovarian cancer acute November 062024 11:35am Infertility acute November 06 11:35am acute November 06, 2024 11:35am Supervision of normal first acute November 06, 2024 1 1:35am Cervical funneling affecting acute November 20, 2024 8 :06am 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 acute November 20, 2024 8 :06am FH: Down syndrome acute November 8:06am FH: ovarian cancer acute November 202024 8:06am Infertility acute November 20 8:06am acute November 20, 2024 8:06am Supervision of normal first acute November 20, 2024 8 :06am Cervical funneling affecting acute November 30, 2024 2:52pm 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 acute November 30, 2024 2:52pm FH: Down syndrome acute November 302024 2:52pm FH: ovarian cancer acute November 152024 2:52pm Infertility acute November 30 2:52pm acute November 30 2:52pm Supervision of normal first acute November 30, 2024 2:52pm Cervical funneling affecting acute December 08, 2024 3:36pm 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 acute December 08, 2024 3:36pm FH: Down syndrome acute December 082024 3:36pm FH: ovarian cancer acute November 162024 3:36pm Infertility acute December 08 3:36pm acute December 08 3:36pm Supervision of normal first acute December 08, 2024 3:36pm Cervical funneling affecting acute December 17, 2024 1 :09pm 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 acute December 17, 2024 1 :09pm FH: Down syndrome acute December 1:09pm FH: ovarian cancer acute December 172024 1:09pm Infertility acute December 17 1:09pm acute December 17, 2024 1:09pm Supervision of normal first acute December 17, 2024 1 :09pm Cervical funneling affecting acute December 25, 2024 11:41am 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 acute December 25, 2024 11:41am FH: Down syndrome acute December 252024 11:41am FH: ovarian cancer acute December 152024 11:41am Infertility acute December 25 11:41am acute December 25 11:41am Supervision of normal first acute December 25, 2024 11:41am [facility] Work Phone: 1(801) 950-798004-10-2025 Evaluation note* Diagnosis Onset Date Resolution Status Admit Date Cervical funneling affecting acute September 24, 2024 11:33am 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 acute September 24, 2024 11:33am FH: Down syndrome acute September 152024 11:33am FH: ovarian cancer acute September 24, 2024 11:33am Infertility acute September 24, 11:33am acute September 24 11:33am Supervision of normal first acute September 24, 2024 11:33am Cervical funneling affecting acute October 21, 2024 8: 17am 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 acute October 21, 2024 8: 17am FH: Down syndrome acute October 8:17am FH: ovarian cancer acute October 8:17am Infertility acute October 21, 2024 8:17am acute October 21, 2024 8:17am Supervision of normal first acute October 21, 2024 8: 17am Cervical funneling affecting acute November 06, 2024 1 1:35am 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 acute November 06, 2024 1 1:35am FH: Down syndrome acute October 11:35am FH: ovarian cancer acute November 062024 11:35am Infertility acute November 06 11:35am acute November 06, 2024 11:35am Supervision of normal first acute November 06, 2024 1 1:35am Cervical funneling affecting acute November 20, 2024 8 :06am 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 acute November 20, 2024 8 :06am FH: Down syndrome acute November 8:06am FH: ovarian cancer acute November 202024 8:06am Infertility acute November 20 8:06am acute November 20, 2024 8:06am Supervision of normal first acute November 20, 2024 8 :06am Cervical funneling affecting acute November 30, 2024 2:52pm 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 acute November 30, 2024 2:52pm FH: Down syndrome acute November 302024 2:52pm FH: ovarian cancer acute November 152024 2:52pm Infertility acute November 30 2:52pm acute November 30 2:52pm Supervision of normal first acute November 30, 2024 2:52pm Cervical funneling affecting acute December 08, 2024 3:36pm 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 acute December 08, 2024 3:36pm FH: Down syndrome acute December 082024 3:36pm FH: ovarian cancer acute November 162024 3:36pm Infertility acute December 08 3:36pm acute December 08 3:36pm Supervision of normal first acute December 08, 2024 3:36pm Cervical funneling affecting acute December 17, 2024 1 :09pm 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 acute December 17, 2024 1 :09pm FH: Down syndrome acute December 1:09pm FH: ovarian cancer acute December 172024 1:09pm Infertility acute December 17 1:09pm acute December 17, 2024 1:09pm Supervision of normal first acute December 17, 2024 1 :09pm Cervical funneling affecting acute December 25, 2024 11:41am 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 acute December 25, 2024 11:41am FH: Down syndrome acute December 252024 11:41am FH: ovarian cancer acute December 152024 11:41am Infertility acute December 25 11:41am acute December 25 11:41am Supervision of normal first acute December 25, 2024 11:41am Cervical funneling affecting acute December 28, 2024 12:35pm 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 acute December 28, 2024 12:35pm FH: Down syndrome acute December 282024 12:35pm FH: ovarian cancer acute December 152024 12:35pm Infertility acute December 28 12:35pm acute December 28 12:35pm Supervision of normal first acute December 28, 2024 12:35pm [facility] Work Phone: 1(190) 657-944603-28-2025 Radiology Diagnostic study note [facility] Imaging Services [address] [place] [address] OB Limited With Biometrics MR#: [id number] Acct: [id number] Name: AIDAN PERAZA Rep #: [id number] : 1995 F 29 From: Lex Robb MD PCP: Dr. Miguel A Pappas MD Status: REG CLI Study:OB Limited With Biometrics Date of Exam : 09/08/24 Exam# [id number] Ordering Dr: Katelin Tidwell MD PROCEDURE: OB LIMITED WITH BIOMETRICS 09/08/2024 REASON FOR EXAM: 4 WEEK GROWTH TECHNIQUE: Transabdominal obstetric ultrasound performed for biometry. COMPARISON: 08/25/2024 transvaginal ultrasound and anatomy ultrasound 08/10/2024 FINDINGS Transabdominal imaging. Single live intrauterine with cardiac activity seen at 141 beats per minute. Presentation is again breech. The cervix currently transabdominally measures 3.2 cm and overall appears closed however this is not as well seen on the preceding transvaginal imaging of 08/25/2024 at which time the cervix was measured at a length of 4.5 cm with appearance of some funneling. Consider short-term follow-up transvaginal repeat imaging. Adnexa not visualized. Maximum vertical pocket 4.4 cm Anterior grade 0 placenta appears within limits. DIMENSIONS: Biparietal Diameter: 5.6 cm/22 weeks 6 days Head Circumference: 27.6 cm/23 weeks 5 days Abdominal Circumference: 19.3 cm/24 weeks 0 days Femur Length: 4.2 cm/23 weeks 3 days FL/AC 20%, FL/BPD 75%, FL/HC 19%, CI 72%, HC/AC 1.12 ESTIMATED WEIGHT: 622 g +/-93 g ESTIMATED WEIGHT PERCENTILE (24+ weeks): 24% Estimated age by current ultrasound 23 weeks 4 days, CHAVA 01/01/2025 age by LMP 24 weeks 1 day, CHAVA 12/28/2024. US/OB Limited With Biometrics IMPRESSION: Single live intrauterine at estimated ultrasound age of 23 weeks and 4days with biometrics as above. There is appropriate appearing interval growth. The cervix currently transabdominally measures 3.2 cm and overall appears closedhowever this is notas well seen on the preceding transvaginal imaging of 08/25/2024 at which time the cervix was measured at a length of 4.5 cm with appearance of some funneling. Consider short-term follow-up transvaginal repeat imaging. Presentation is again breech. Reading Location: [id number] CC: Dr. Miguel A Pappas MD; Dr. Katelin Lazcano MD ~ Rfid Technician: Signed [facility]03-12-2025 Evaluation note* Diagnosis Onset Date Resolution Status Admit Date Cervical funneling affecting acute August 26, 2024 2:03pm FH: Down syndrome acute August 152024 2:03pm FH: ovarian cancer acute August 26, 2024 2:03pm Infertility acute August 26, 025 2:03pm acute August 26 2:03pm Supervision of normal first acute August 26, 2024 2:03pm Cervical funneling affecting acute September 24, 2024 11:33am 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 acute September 24, 2024 11:33am FH: Down syndrome acute September 152024 11:33am FH: ovarian cancer acute September 24, 2024 11:33am Infertility acute September 24, 025 11:33am acute September 24 11:33am Supervision of normal first acute September 24, 2024 11:33am Cervical funneling affecting acute October 21, 2024 8: 17am 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 acute October 21, 2024 8: 17am FH: Down syndrome acute October 8:17am FH: ovarian cancer acute October 8:17am Infertility acute October 21, 2024 8:17am acute October 21, 2024 8:17am Supervision of normal first acute October 21, 2024 8: 17am Cervical funneling affecting acute November 06, 2024 1 1:35am 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 acute November 06, 2024 1 1:35am FH: Down syndrome acute October 11:35am FH: ovarian cancer acute November 062024 11:35am Infertility acute November 06 11:35am acute November 06, 2024 11:35am Supervision of normal first acute November 06, 2024 1 1:35am Cervical funneling affecting acute November 20, 2024 8 :06am 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 acute November 20, 2024 8 :06am FH: Down syndrome acute November 8:06am FH: ovarian cancer acute November 202024 8:06am Infertility acute November 20 8:06am acute November 20, 2024 8:06am Supervision of normal first acute November 20, 2024 8 :06am Cervical funneling affecting acute November 30, 2024 2:52pm 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 acute November 30, 2024 2:52pm FH: Down syndrome acute November 302024 2:52pm FH: ovarian cancer acute November 152024 2:52pm Infertility acute November 30 2:52pm acute November 30 2:52pm Supervision of normal first acute November 30, 2024 2:52pm [facility] Work Phone: 1(889) 563-809103-12-2025 Evaluation note* Diagnosis Onset Date Resolution Status Admit Date Cervical funneling affecting acute August 26, 2024 2:03pm FH: Down syndrome acute August 152024 2:03pm FH: ovarian cancer acute August 26, 2024 2:03pm Infertility acute August 26, 2 025 2:03pm acute August 26 2:03pm Supervision of normal first acute August 26, 2024 2:03pm Cervical funneling affecting acute September 24, 2024 11:33am 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 acute September 24, 2024 11:33am FH: Down syndrome acute September 152024 11:33am FH: ovarian cancer acute September 24, 2024 11:33am Infertility acute September 24, 2 025 11:33am acute September 24 11:33am Supervision of normal first acute September 24, 2024 11:33am Cervical funneling affecting acute October 21, 2024 8: 17am 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 acute October 21, 2024 8: 17am FH: Down syndrome acute October 8:17am FH: ovarian cancer acute October 8:17am Infertility acute October 21, 2024 8:17am acute October 21, 2024 8:17am Supervision of normal first acute October 21, 2024 8: 17am Cervical funneling affecting acute November 06, 2024 1 1:35am 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 acute November 06, 2024 1 1:35am FH: Down syndrome acute October 11:35am FH: ovarian cancer acute November 062024 11:35am Infertility acute November 06 11:35am acute November 06, 2024 11:35am Supervision of normal first acute November 06, 2024 1 1:35am Cervical funneling affecting acute November 20, 2024 8 :06am 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 acute November 20, 2024 8 :06am FH: Down syndrome acute November 8:06am FH: ovarian cancer acute November 202024 8:06am Infertility acute November 20 8:06am acute November 20, 2024 8:06am Supervision of normal first acute November 20, 2024 8 :06am Cervical funneling affecting acute November 30, 2024 2:52pm 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 acute November 30, 2024 2:52pm FH: Down syndrome acute November 302024 2:52pm FH: ovarian cancer acute November 152024 2:52pm Infertility acute November 30 2:52pm acute November 30 2:52pm Supervision of normal first acute November 30, 2024 2:52pm Cervical funneling affecting acute December 08, 2024 3:36pm 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 acute December 08, 2024 3:36pm FH: Down syndrome acute December 082024 3:36pm FH: ovarian cancer acute November 162024 3:36pm Infertility acute December 08 3:36pm acute December 08 3:36pm Supervision of normal first acute December 08, 2024 3:36pm [facility] Work Phone: 1(951) 426-379703-12-2025 Evaluation note* Diagnosis Onset Date Resolution Status Admit Date Cervical funneling affecting acute August 26, 2024 2:03pm FH: Down syndrome acute August 152024 2:03pm FH: ovarian cancer acute August 26, 2024 2:03pm Infertility acute August 26, 2 025 2:03pm acute August 26 2:03pm Supervision of normal first acute August 26, 2024 2:03pm Cervical funneling affecting acute September 24, 2024 11:33am 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 acute September 24, 2024 11:33am FH: Down syndrome acute September 152024 11:33am FH: ovarian cancer acute September 24, 2024 11:33am Infertility acute September 24, 025 11:33am acute September 24 11:33am Supervision of normal first acute September 24, 2024 11:33am Cervical funneling affecting acute October 21, 2024 8: 17am 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 acute October 21, 2024 8: 17am FH: Down syndrome acute October 8:17am FH: ovarian cancer acute October 8:17am Infertility acute October 21, 2024 8:17am acute October 21, 2024 8:17am Supervision of normal first acute October 21, 2024 8: 17am Cervical funneling affecting acute November 06, 2024 1 1:35am 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 acute November 06, 2024 1 1:35am FH: Down syndrome acute October 11:35am FH: ovarian cancer acute November 062024 11:35am Infertility acute November 06 11:35am acute November 06, 2024 11:35am Supervision of normal first acute November 06, 2024 1 1:35am Cervical funneling affecting acute November 20, 2024 8 :06am 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 acute November 20, 2024 8 :06am FH: Down syndrome acute November 8:06am FH: ovarian cancer acute November 202024 8:06am Infertility acute November 20 8:06am acute November 20, 2024 8:06am Supervision of normal first acute November 20, 2024 8 :06am Cervical funneling affecting acute November 30, 2024 2:52pm 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 acute November 30, 2024 2:52pm FH: Down syndrome acute November 302024 2:52pm FH: ovarian cancer acute November 152024 2:52pm Infertility acute November 30 2:52pm acute November 30 2:52pm Supervision of normal first acute November 30, 2024 2:52pm Cervical funneling affecting acute December 08, 2024 3:36pm 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 acute December 08, 2024 3:36pm FH: Down syndrome acute December 082024 3:36pm FH: ovarian cancer acute November 162024 3:36pm Infertility acute December 08 3:36pm acute December 08 3:36pm Supervision of normal first acute December 08, 2024 3:36pm Cervical funneling affecting acute December 17, 2024 1 :09pm 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 acute December 17, 2024 1 :09pm FH: Down syndrome acute December 1:09pm FH: ovarian cancer acute December 172024 1:09pm Infertility acute December 17 1:09pm acute December 17, 2024 1:09pm Supervision of normal first acute December 17, 2024 1 :09pm [facility] Work Phone: [phone]) 243-701203-12-2025 Radiology Diagnostic study note [facility] Imaging Services [address] [place] [id number] Transvaginal w/Preg US MR#: [id number] Acct: [id number] Name: AIDAN PERAZA Rep #: [id number] : 1995 F 29 From: Brett Pina MD PCP: Dr. Miguel A Pappas MD Status: REG CLI Study:Transvaginal w/Preg US Date of Exam: 08/25/24 Exam# [id number] Ordering Dr: Katelin Tidwell MD PROCEDURE: TRANSVAGINAL W/PREG US REASON FOR EXAM: CHECK CERVICAL LENGTH, FUNNELING TO CONFIRM STABLE COMPARISON: Comparison is made with prior study dated August 10, 2024. FINDINGS Number: 1 Position: Breech Placental Position: Anterior and not low-lying. Placental Abnormalities: None. Cardiac Motion: 150 beats per minute (average) MATERNAL ANATOMY: Adnexa: Neither maternal ovary is successfully identified. Cervical Length (if measured): 4.5 cm. There is some fluid seen in the cervix. There is some funneling of the cervix. It measures 3 mm in transverse dimension. US/Transvaginal w/Preg US IMPRESSION: The cervical length is 4.5 cm. There is some funneling of the cervix. Fluid isseen within it. The cervix measures 3 mm in transverse dimension. Reading Location: [facility] CC: Dr. Miguel A Pappas MD; Dr. Katelin Lazcano MD ~ Rfid Technician: Signed [facility]02-24-2025 Radiology Diagnostic study note [facility] Imaging Services [address], [place] [id number] OB Anatomy w/ Transvaginal MR#: [id number] Acct: [id number] Name: AIDAN PERAZA Rep #: [id number] : 1995 F 29 From: Will Husain DO PCP: Dr. Miguel A Pappas MD Status: REG CLI Study:OB Anatomy w/ Transvaginal Date of Exam : 08/10/24 Exam# [id number] Ordering Dr: Katelin Tidwell MD PROCEDURE: ultrasound. REASON FOR EXAM: anatomy. COMPARISON: Report 05/25/2024, images not available. FINDINGS Included maternal urinary bladder unremarkable. Cervical length is 4.5 cm. There is some fluid echogenicity within the cervix, with some minimal funneling of the internal os. The placenta is anterior, without retroplacental fluid collection or placenta previa. Amniotic fluid level appears within normal limits, with maximum vertical pocket of 3.5 cm. There benjamin single live intrauterine gestation in breech presentation. heart rate 148 beats per minute. Visualized intracranial and intra-abdominal structures are grossly unremarkable. Lateral ventricle diameter at 6 mm. Biparietal diameter 4.2 cm, at the 9th percentile. Head circumference 16.4 cm, at the 9th percentile. Abdominal circumference 13.9 cm, at the 22nd percentile. Femur length 2.9 cm, at the 12th percentile. Estimated weight 275 g +/-41 g, at the 10th percentile. Facial features are grossly intact. Visualized extremities unremarkable. There appears to be a four-chamber heart and three-vessel cord. cord insertion is unremarkable. Maternal adnexal regions unremarkable. The ovaries are not demonstrated. US/OB Anatomy w/ Transvaginal IMPRESSION: Single live intrauterine gestation with estimated gestational age 19 weeks, 1 days. Estimated date of confinement 01/03/2025. No gross anomalies are demonstrated. Amniotic fluid level appears within normal limits. Cervical length is 4.5 cm. The cervix contains a small amount of fluid, with some minimal funnelingof the internal cervical os. No evidence of placenta previa. Reading Location: [place] CC: Dr. Miguel A Pappas MD; Dr. Katelin Lazcano MD ~ Rfid Technician: Signed [facility]02-12-2025 Evaluation note* Diagnosis Onset Date Resolution Status Admit Date FH: Down syndrome acute 2024 9:05am FH: ovarian cancer acute 2024 9:05am Infertility acute July 9:05am acute July 29, 2024 9:05am Supervision of normal first acute July 29 025 9:05am [facility] Work Phone: 1(809) 749-505002-12-2025 Evaluation note* Diagnosis Onset Date Resolution Status Admit Date FH: Down syndrome acute ua2024 9:05am FH: ovarian cancer acute ua 2024 9:05am Infertility acute July 9:05am acute July 29, 2024 9:05am Supervision of normal first acute July 29 025 9:05am Cervical funneling affecting acute August 26, 2024 2:03pm FH: Down syndrome acute August 152024 2:03pm FH: ovarian cancer acute August 26, 2024 2:03pm Infertility acute August 26, 2 025 2:03pm acute August 26 2:03pm Supervision of normal first acute August 26, 2024 2:03pm [facility] Work Phone: 1(324) 546-530302-12-2025 Evaluation note* Diagnosis Onset Date Resolution Status Admit Date FH: Down syndrome acute r 2024 9:05am FH: ovarian cancer acute 2024 9:05am Infertility acute July 9:05am acute July 29, 2024 9:05am Supervision of normal first acute July 29, 2 025 9:05am Cervical funneling affecting acute August 26, 2024 2:03pm FH: Down syndrome acute August 152024 2:03pm FH: ovarian cancer acute August 26, 2024 2:03pm Infertility acute August 26, 2 025 2:03pm acute August 26 2:03pm Supervision of normal first acute August 26, 2024 2:03pm Cervical funneling affecting acute September 24, 2024 11:33am 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 acute September 24, 2024 11:33am FH: Down syndrome acute September 152024 11:33am FH: ovarian cancer acute September 24, 2024 11:33am Infertility acute September 24, 2 025 11:33am acute September 24 11:33am Supervision of normal first acute September 24, 2024 11:33am [facility] Work Phone: 1([phone]) 499-249802-12-2025 Evaluation note* Diagnosis Onset Date Resolution Status Admit Date FH: Down syndrome acute 2024 9:05am FH: ovarian cancer acute 2024 9:05am Infertility acute July 9:05am acute July 29, 2024 9:05am Supervision of normal first acute July 29, 2 025 9:05am Cervical funneling affecting acute August 26, 2024 2:03pm FH: Down syndrome acute August 152024 2:03pm FH: ovarian cancer acute August 26, 2024 2:03pm Infertility acute August 26, 2 025 2:03pm acute August 26 2:03pm Supervision of normal first acute August 26, 2024 2:03pm Cervical funneling affecting acute September 24, 2024 11:33am 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 acute September 24, 2024 11:33am FH: Down syndrome acute September 152024 11:33am FH: ovarian cancer acute September 24, 2024 11:33am Infertility acute September 24, 2 025 11:33am acute September 24 11:33am Supervision of normal first acute September 24, 2024 11:33am Cervical funneling affecting acute October 21, 2024 8: 17am 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 acute October 21, 2024 8: 17am FH: Down syndrome acute October 8:17am FH: ovarian cancer acute October 8:17am Infertility acute October 21, 2024 8:17am acute October 21, 2024 8:17am Supervision of normal first acute October 21, 2024 8: 17am Cervical funneling affecting acute November 06, 2024 1 1:35am 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 acute November 06, 2024 1 1:35am FH: Down syndrome acute October 11:35am FH: ovarian cancer acute November 062024 11:35am Infertility acute November 06 11:35am acute November 06, 2024 11:35am Supervision of normal first acute November 06, 2024 1 1:35am Cervical funneling affecting acute November 20, 2024 8 :06am 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 acute November 20, 2024 8 :06am FH: Down syndrome acute November 8:06am FH: ovarian cancer acute November 202024 8:06am Infertility acute November 20 8:06am acute November 20, 2024 8:06am Supervision of normal first acute November 20, 2024 8 :06am [facility] Work Phone: Evaluation noteThere may be information available, but it has not been provided by the sender.[facility] Work Phone: Instructions* Instruction Description Start Date Completed [facility] Work Phone: Progress note Author Gaby Reynolds [facility] Note Date/Time November 20, 2024 8:30a m [facility] [address], [address] [place] [address] OFFICE VISIT Date of Service: 11/20/24 MR#: [id number] Acct: [id number] Name: AIDAN PERAZA Rep #: [id number] : 1995 Provider: MINDY Reynolds Age/Sex: 29/F Location: [facility] Status: Signed Intake Vital Signs 10/21/24 08:19 11/06/24 11:36 11/20/24 08:08 Height 5 ft 9 in 5 ft 9 in 5 ft 9 in Weight: 189 lb 8 oz BMI 28.0 BP 122/68 H Intake Visit Reasons: 34 wk ob Chief Complaint: 34 Week OB 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: No Is patient in pain?: No Allergies No Known Allergies Allergy (Verified 11/20/24 08:11) Medications ?Medication ?Instructions ?Recorded ?Confirmed ?Type PNV 153-FA 400 mcg-om3 35 mg-dha tab PO 07/28/2411/20 History 25 mg-epa 5 mg-fish oil chew tablet Last Menstrual Period: 05/27/24 Zika: Zika virus screening: Negative : No PFSH PFSH Medical History Laceration with foreign body of left index finger without damage to nail, initial encounter Puncture wound without foreign body of left index finger without damage to nail,initial encounter Laceration of left index finger with foreign body Puncture wound of left index finger Family History Grandmother Cancer Maternal ovarian, colon with metastasis Grandfather Myocardial infarction Maternal-2 VT's Social History adopted: No household members: spouse current occupational status: employed current occupation: [employer] current occupational exposures/hazards: No pets and animals: Yes pets and animals: dog(s) history of recent travel: No sexually active: Yes Smoking Status: Never smoker alcohol intake: never substance use type: does not use well-balanced diet: daily or most days caffeine: No eating out: rarely or never during the past year weight has: remained stable what type of physical activity do you participate in: running, weight training and other details: Kickboxing frequency: 3-4 times per week duration: 45-60 minutes/day john/holiness: Mu-Ism seatbelt use: always do you feel safe at home: Yes 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 OB Visit CHAVA Calculator Estimated Delivery Date Method Current WG Current Estimate 12/28/24 Ultrasound #1 34w 4d Expected Delivery Route/Plan Labor Preferences- CB/BF classes: enc labor support person: Kelvin labor intervention preferences: [] pain management options preferred: limited cut cord/dad catch: yes : yes PP control planned: [] discussed possible routes of delivery and associated risks: [] special requests: [] Specific Issue/Plans Covid status: [] Flu vaccine: [] Tdap vaccine: declines Rhogam: NA LARC form signed: yes Problem list reviewed and updated with the most current plan of care details and appropriate orders placed. Relevant counseling for the gestational age provided. 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 planning hospital delivery 09/24/24 -?-?-?-?-?-?-?-?-?-?-?-?- 26w 3d 182 lb 6 oz 128/76 Nega tive -?-?-?-?-?-?-?-?-?-?-?-?- Negative 137 26 -?-?-?-?-?-?-?-?-?-?-?-?- MH-No VB, LOF or CTX. Larc. Ordered growth US and recheck CL. 10/21/24 -?-?-?-?-?-?-?-?-?-?-?-?- 30w 2d 186 lb 4 oz 112/68 Nega tive -?-?-?-?-?-?-?-?-?-?-?-?- Negative 138 30 -?-?-?-?-?-?-?-?-?-?-?-?- MH-No VB, LOF. G ood FM. No concerns 11/06/24 -?-?-?-?-?-?--?-?-?-?-?-?- 32w 4d 188 lb 2 oz 130/74 Nega tive -?-?-?-?-?-?-?-?-?-?-?-?- Negative 135 31 -?-?-?-?-?-?-?-?-?-?-?-?- KW- no vb/lof/ct x. good fm. 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 no concerns today 11/20/24 -?-?-?-?-?-?-?-?-?-?-?-?- 34w 4d 189 lb 8 oz 122/68 Nega tive -?-?-?-?-?-?-?-?-?-?--?-?- Negative 145 34 -?-?-?-?-?-?-?-?-?-?-?-?- KW-no vb/lof/ctx . good fm. no concerns today ACOG First Trimester First Trimester: Desire for , Alcohol, Tobacco Cessation, Illicit/Recreational Drug/Substance Use, Intimate Partner Violence, Barriers to care, Unstable Housing, Communication Barriers, Environmental/Work Hazards, Anticipated Course of Care, Toxoplasmosis Precations, Use of Any medications, Sexual activity, Exercise, Dental Care, Sauna/Hot tub use, Seat Belt use, Childbirth classes/Hospital facilities, Travel, Indications for Ultrasound and Screening for Aneuploidy; Discussed Second Trimester Second Trimester: Signs and Symptoms of Labor, Selecting a care provider, Reproductive Life Planning & Contreception and Care Planning; Discussed Tobacco Cessation, Discussed Depression/Anxiety and Discussed Intimate Partner Violence Third Trimester Third Trimester: Pain Management Plans, Labor support person(s), Immediate Larc, Signs and Symptoms of Preeclampsia, Infant Feeding No and Family Medical Leave or Disability Forms; Discussed Circumcision preference ROS Const Reports system reviewed and no additional complaints, except as documented Eyes Reports system reviewed and no additional complaints, except as documented ENT Reports system reviewed and no additional complaints, except as documented Card Reports system reviewed and no additional complaints, except as documented Resp Reports system reviewed and no additional complaints, except as documented GI Reports system reviewed and no additional complaints, except as documented, Denies nausea and Denies vomiting Reports system reviewed and no additional complaints, except as documented Musc Reports system reviewed and no additional complaints, except as documented Skin/Breast Reports system reviewed and no additional complaints, except as documented Neuro Yes system reviewed and no additional complaints, except as documented Psych Reports system reviewed and no additional complaints, except as documented Endo Reports system reviewed and no additional complaints, except as documented Ochoa/Lymph Reports system reviewed and no additional complaints, except as documented Aller/Immun Reports system reviewed and no additional complaints, except as documented Exam Const General: cooperative, healthy appearing and no acute distress Orientation: alert, awake and oriented x3 Neck Neck: normal visual inspection and full ROM Resp Effort & Inspection: normal respiratory effort, able to speak in complete sentences and symmetric chest movement GI Inspection: normal to inspection Palpation: soft and other Other: gravid Skin General: no rashes or lesions noted Neuro General: patient alert, patient awake and patient oriented x3 Cognition: normal cognition Speech: speech normal Gait: normal gait Motor: muscle tone normal throughout Extrem General: normal to inspection and full ROM Psych Appearance: grossly normal Mental Status: mental status grossly normal Mood: congruent mood Affect: normal affect Speech and Movement: speech and movement normal Attitude: cooperative Thought Process: normal Thought Content: normal Judgment: judgment good Results POC Urinalysis 2 Dip (Clinic) Office Urine Glucose Negative Last Edit by Sully Patel on 11/20/24 08 :16 Office Urine Protein Negative Last Edit by Sully Patel on 11/20/24 08 :16 Coding Level of Care Code OB Routine Diagnoses 34 weeks gestation of Z3A.34 Weeks of gestation: 34 weeks Encounter for supervision of normal first in third trimester Z34.03 Trimester: third trimester FH: Down syndrome Z82.79 Infertility FH: ovarian cancer Z80.41 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 (2) Supervision of normal first : Status: Acute Qualifiers: Trimester: third trimester Qualified Code(s): Z34.03 - Encounter for supervision of normal first , third trimester Comment: [id number], CHAVA 12/28/24 Sushma. Kelvin (3) FH: Down syndrome: Status: Acute Comment: Paternal Aunt (4) Infertility: Status: Acute Comment: 3 years to conceive (5) FH: ovarian cancer: Status: Acute Comment: Maternal Grandmother (6) Cervical funneling affecting : Status: Acute Qualifiers: Trimester: second trimester Qualified Code(s): O34.32 - Maternal care for cervical incompetence, second trimester Comment: stable. (7) 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: Status: Acute Comment: confirmatory negative Orders: Orders POC Urinalysis 2 Dip (Clinic) Today Plan Details Additional Comments: ACOG trimester education reviewed and updated. see problem list details for updated plan management information and see below for orders placed at this visit. GA appropriate handout given. 11/20/24 5768 <Electronically signed by Gaby ivey CNM> Date _ Gaby NORWOODCiara Mortoner Signature: Date (if applicable) CC: ~ [facility] Work Phone: Progress note Author Katelin Lazcano [facility] Note Date/Time December 17, 2024 1:42p [facility] [address], [address] [place] [address] OFFICE VISIT Date of Service: 12/17/24 MR#: [id number] Acct: [id number] Name: AIDAN PERAZA Rep #: [id number] : 1995 Provider: Dr. Landon Lazcano MD Age/Sex: 29/F Location: [place] Status: Signed Intake Vital Signs 11/20/24 08:08 12/08/24 15:44 12/17/24 13:12 Height 5 ft 9 in 5 ft 9 in 5 ft 9 in Weight: 192 lb BMI 28.3 BP 123/73 H Intake Visit Reasons: 38wk ob 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: No Is patient in pain?: No Allergies No Known Allergies Allergy (Verified 12/17/24 13:11) Medications ?Medication ?Instructions ?Recorded ?Confirmed ?Type PNV 153-FA 400 mcg-om3 35 mg-dha tab PO 07/28/2412/17 History 25 mg-epa 5 mg-fish oil chew tablet Last Menstrual Period: 05/27/24 Zika: Zika virus screening: Negative : No PFSH PFSH Medical History Laceration with foreign body of left index finger without damage to nail, initial encounter Puncture wound without foreign body of left index finger without damage to nail,initial encounter Laceration of left index finger with foreign body Puncture wound of left index finger Family History Grandmother Cancer Maternal ovarian, colon with metastasis Grandfather Myocardial infarction Maternal-2 VT's Social History adopted: No household members: spouse current occupational status: employed current occupation: [employer] current occupational exposures/hazards: No pets and animals: Yes pets and animals: dog(s) history of recent travel: No sexually active: Yes Smoking Status: Never smoker alcohol intake: never substance use type: does not use well-balanced diet: daily or most days caffeine: No eating out: rarely or never during the past year weight has: remained stable what type of physical activity do you participate in: running, weight training and other details: Kickboxing frequency: 3-4 times per week duration: 45-60 minutes/day john/holiness: Mu-Ism seatbelt use: always do you feel safe at home: Yes 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 OB Visit CHAVA Calculator Estimated Delivery Date Method Current WG Current Estimate 12/28/24 Ultrasound #1 38w 3d Expected Delivery Route/Plan Labor Preferences- CB/BF classes: enc labor support person: Kelvin labor intervention preferences: [] pain management options preferred: limited cut cord/dad catch: yes : yes PP control planned: [] discussed possible routes of delivery and associated risks: [] special requests: [] Specific Issue/Plans Covid status: [] Flu vaccine: [] Tdap vaccine: declines Rhogam: NA LARC form signed: yes Problem list reviewed and updated with the most current plan of care details and appropriate orders placed. Relevant counseling for the gestational age provided. 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 planning hospital delivery 09/24/24 -?-?-?-?-?-?-?-?-?-?-?-?- 26w 3d 182 lb 6 oz 128/76 Nega tive -?-?-?-?-?-?-?-?-?-?-?-?- Negative 137 26 -?-?-?-?-?-?-?-?-?-?-?-?- -No VB, LOF or CTX. Larc. Ordered growth US and recheck CL. 10/21/24 -?-?-?-?-?-?-?-?-?-?-?-?- 30w 2d 186 lb 4 oz 112/68 Nega tive -?-?-?-?-?-?-?-?-?-?-?-?- Negative 138 30 -?-?-?-?-?-?-?-?-?-?-?-?- MH-No VB, LOF. G ood FM. No concerns 11/06/24 -?-?-?-?-?-?-?-?-?-?-?-?- 32w 4d 188 lb 2 oz 130/74 Nega tive -?-?-?-?-?-?-?-?-?-?-?-?- Negative 135 31 -?-?-?-?-?-?-?-?-?-?-?-?- KW- no vb/lof/ct x. good fm. 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 no concerns today 11/20/24 -?-?-?-?-?-?-?-?-?-?-?-?- 34w 4d 189 lb 8 oz 122/68 Nega tive -?-?-?-?-?-?-?-?-?-?-?-?- Negative 145 34 -?-?--?-?-?-?-?-?-?-?-?-?- KW-no vb/lof/ctx . good fm. no concerns today 11/30/24 -?-?-?-?-?-?-?-?-?-?-?-?- 36w 0d 191 lb 6 oz 122/70 Nega tive -?-?-?-?-?-?-?-?-?-?-?-?- Negative 130 35 Cephalic 1 -?-?-?-?-?-?-?-?-?-?-?-?- 30 -2 KW- no vb/ lof/ctx. good fm. GBS today. 12/08/24 -?-?-?-?-?-?-?-?-?-?-?-?- 37w 1d 191 lb 4 oz 118/72 Nega tive -?-?-?-?-?-?-?-?-?-?-?-?- Negative 141 36 Cephalic 1 -?-?-?-?-?-?-?-?-?-?-?-?- 30 -2 MH-No VB. LOF. No change in cervix. GBS neg. No CTX. Good FM 12/17/24 -?-?-?-?-?-?-?-?-?-?-?-?- 38w 3d 192 lb 123/73 -?-?-?-?-?-?-?-?-?-?-?-?- 140 34 Cephalic 1 -?-?-?-?-?-?-?-?-?-?-?-?- SM- no vb lof go od fm no reuglar ctx ACOG First Trimester First Trimester: Desire for , Alcohol, Tobacco Cessation, Illicit/Recreational Drug/Substance Use, Intimate Partner Violence, Barriers to care, Unstable Housing, Communication Barriers, Environmental/Work Hazards, Anticipated Course of Care, Toxoplasmosis Precations, Use of Any medications, Sexual activity, Exercise, Dental Care, Sauna/Hot tub use, Seat Belt use, Childbirth classes/Hospital facilities, Travel, Indications for Ultrasound and Screening for Aneuploidy; Discussed Second Trimester Second Trimester: Signs and Symptoms of Labor, Selecting a care provider, Reproductive Life Planning & Contreception and Care Planning; Discussed Tobacco Cessation, Discussed Depression/Anxiety and Discussed Intimate Partner Violence Third Trimester Third Trimester: Pain Management Plans, Labor support person(s), Immediate Larc, Signs and Symptoms of Preeclampsia, Feeding No and Family Medical Leave or Disability Forms; Discussed Circumcision preference Coding Level of Care Code OB Routine Diagnoses 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 R76.8 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 (3) FH: ovarian cancer: Status: Acute Comment: Maternal Grandmother (4) Infertility: Status: Acute Comment: 3 years to conceive (5) FH: Down syndrome: Status: Acute Comment: Paternal Aunt (6) Supervision of normal first : Status: Acute Qualifiers: Trimester: third trimester Qualified Code(s): Z34.03 - Encounter for supervision of normal first , third trimester Comment: [id number], CHAVA 12/28/24 Sushma. eKlvin (7) : Status: Acute Qualifiers: Weeks of gestation: 38 weeks Qualified Code(s): Z3A.38 - 38 weeks gestation of Comment: GBS neg, declined genetic & carrier testing, afp screening. 12/17/24 1342 <Electronically signed by Katelin slade MD> Date _ Katelin Lazcano MD Cosigner Signature: Date (if applicable) CC: ~ [facility] Work Phone: Reason for referral (narrative)No reason for referral information availableWReg[facility] Work Phone: Summary Purpose Family History No Family History Records Found Relationship Condition Age at Onset Recorded Date/T thu grandmother Malignant neoplasm Unknown grandfather Myocardial infarction Unknown Advance Directives No Advanced Directives Records FoundThere may be information available, but it has not been provided by the sender.No Advanced Directives Records Found Chief Complaint Chief Complaint Description Start Date his left index finger Preliminary chief co mplaint data, not yet signed by the author as of Chief Complaint and Reason for Visit Chief Complaint Admit Date STANDING ORDER April 23, 2024 7 :27am POSITIVE TEST May 25 3:41pm US#1 05/25+ CHAVA 12/28/24 July 29 9:05am ANATOMY August 10, 2024 3:28pm Reason for Visit Admit Date FH: Down syndrome July 29, 2024 9:05am FH: ovarian cancer July 29, 2024 9:05am Infertility July 29, 2024 9:05am July 29, 2024 9:05am Supervision of normal first Fe bruary 2024 9:05am Chief Complaint Admit Date POSITIVE TEST May 25 3:41pm US#1 12/9+ CHAVA 12/28/24 July 29 9:05am ANATOMY August 10, 2024 3:28pm CHECK CERVICAL LENGTH August 25, 2024 4 :08pm 22 wk OB August 26, 2024 2:0 3pm Reason for Visit Admit Date FH: Down syndrome July 29, 2024 9:05am FH: ovarian cancer July 29, 2024 9:05am Infertility July 29, 2024 9:05am July 29, 2024 9:05am Supervision of normal first Fe bruary 2024 9:05am Cervical funneling affecting M arch 2024 2:03pm FH: Down syndrome August 26, 2024 2:0 3pm FH: ovarian cancer August 26, 2024 2:0 3pm Infertility August 26, 2024 2:0 3pm August 26, 2024 2:0 3pm Supervision of normal first [facility] 2024 2:03pm Chief Complaint Admit Date POSITIVE TEST May 25 3:41pm US#1 9+ CHAVA 12/28/24 July 29 9:05am ANATOMY August 10, 2024 3:28pm CHECK CERVICAL LENGTH August 25, 2024 4 :08pm 22 wk OB August 26, 2024 2:0 3pm 4 WEEK GROWTH September 08, 2024 4:2 3pm Chief Complaint Admit Date POSITIVE TEST May 25 3:41pm US#1 /9+ CHAVA 12/28/24 July 29 9:05am ANATOMY August 10, 2024 3:28pm CHECK CERVICAL LENGTH August 25, 2024 4 :08pm 22 wk OB August 26, 2024 2:0 3pm 4 WEEK GROWTH September 08, 2024 4:2 3pm INT LAB ORDER September 19, 2024 7:00 am Chief Complaint Admit Date US#1 /9+ CHAVA 12/28/24 July 29 9:05am ANATOMY August 10, 2024 3:28pm CHECK CERVICAL LENGTH August 25, 2024 4 :08pm 22 wk OB August 26, 2024 2:0 3pm 4 WEEK GROWTH September 08, 2024 4:2 3pm INT LAB ORDER September 19, 2024 7:00 am 26wk ob/glucose September 24, 2024 11: 33am GROWTH US, CHECK CERVICAL LENGTH September 162024 4:18pm Reason for Visit Admit Date FH: Down syndrome July 29, 2024 9:05am FH: ovarian cancer July 29, 2024 9:05am Infertility July 29, 2024 9:05am July 29, 2024 9:05am Supervision of normal first Fe bru2024 9:05am Cervical funneling affecting M arch 2024 2:03pm FH: Down syndrome August 26, 2024 2:0 3pm FH: ovarian cancer August 26, 2024 2:0 3pm Infertility August 26, 2024 2:0 3pm August 26, 2024 2:0 3pm Supervision of normal first [facility] 2024 2:03pm Cervical funneling affecting A pril 2024 11:33am 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 September 152024 11:33am FH: Down syndrome September 24, 2024 11: 33am FH: ovarian cancer September 24, 2024 11: 33am Infertility September 24, 2024 11: 33am September 24, 2024 11: 33am Supervision of normal first Ap ril 2024 11:33am Chief Complaint Admit Date US#1 05/25+ CHAVA 12/28/24 July 29 9:05am ANATOMY August 10, 2024 3:28pm CHECK CERVICAL LENGTH August 25, 2024 4 :08pm 22 wk OB August 26, 2024 2:0 3pm 4 WEEK GROWTH September 08, 2024 4:2 3pm INT LAB ORDER September 19, 2024 7:00 am 26wk ob/glucose September 24, 2024 11: 33am GROWTH US, CHECK CERVICAL LENGTH September 162024 4:18pm 30wk ob October 21, 2024 8:17am 32 wk ob November 06, 2024 11:35 am 34 wk ob November 20, 2024 8:06a m Reason for Visit Admit Date FH: Down syndrome July 29, 2024 9:05am FH: ovarian cancer July 29, 2024 9:05am Infertility July 29, 2024 9:05am July 29, 2024 9:05am Supervision of normal first Fe bru2024 9:05am Cervical funneling affecting M [facility] 2024 2:03pm FH: Down syndrome August 26, 2024 2:0 3pm FH: ovarian cancer August 26, 2024 2:0 3pm Infertility August 26, 2024 2:0 3pm August 26, 2024 2:0 3pm Supervision of normal first Ma [facility] 2024 2:03pm Cervical funneling affecting A pril 2024 11:33am 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 September 152024 11:33am FH: Down syndrome September 24, 2024 11: 33am FH: ovarian cancer September 24, 2024 11: 33am Infertility September 24, 2024 11: 33am September 24, 2024 11: 33am Supervision of normal first Ap ril 2024 11:33am Cervical funneling affecting M ay 2024 8:17am 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 October 8:17am FH: Down syndrome October 21, 2024 8:17am FH: ovarian cancer October 21, 2024 8:17am Infertility October 21, 2024 8:17am October 21, 2024 8:17am Supervision of normal first Ma y 2024 8:17am Cervical funneling affecting M ay 2024 11:35am 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 October 11:35am FH: Down syndrome November 06, 2024 11:35 am FH: ovarian cancer November 06, 2024 11:35 am Infertility November 06, 2024 11:35 am November 06, 2024 11:35 am Supervision of normal first Ma y 2024 11:35am Cervical funneling affecting J [facility] 2024 8:06am 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 November 8:06am FH: Down syndrome November 20, 2024 8:06a m FH: ovarian cancer November 20, 2024 8:06a m Infertility November 20, 2024 8:06a m November 20, 2024 8:06a m Supervision of normal first Ju nj 2024 8:06am Chief Complaint Admit Date ANATOMY August 10, 2024 3:28pm CHECK CERVICAL LENGTH August 25, 2024 4 :08pm 22 wk OB August 26, 2024 2:0 3pm 4 WEEK GROWTH September 08, 2024 4:2 3pm INT LAB ORDER September 19, 2024 7:00 am 26wk ob/glucose September 24, 2024 11: 33am GROWTH US, CHECK CERVICAL LENGTH September 162024 4:18pm 30wk ob October 21, 2024 8:17am 32 wk ob November 06, 2024 11:35 am 34 wk ob November 20, 2024 8:06a m 36wk ob November 30, 2024 2:52 pm Reason for Visit Admit Date Cervical funneling affecting M arch 2024 2:03pm FH: Down syndrome August 26, 2024 2:0 3pm FH: ovarian cancer August 26, 2024 2:0 3pm Infertility August 26, 2024 2:0 3pm August 26, 2024 2:0 3pm Supervision of normal first Ma rch 2024 2:03pm Cervical funneling affecting A pril 2024 11:33am 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 September 152024 11:33am FH: Down syndrome September 24, 2024 11: 33am FH: ovarian cancer September 24, 2024 11: 33am Infertility September 24, 2024 11: 33am September 24, 2024 11: 33am Supervision of normal first Ap ril 2024 11:33am Cervical funneling affecting M ay 2024 8:17am 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 October 8:17am FH: Down syndrome October 21, 2024 8:17am FH: ovarian cancer October 21, 2024 8:17am Infertility October 21, 2024 8:17am October 21, 2024 8:17am Supervision of normal first Ma y 2024 8:17am Cervical funneling affecting M ay 2024 11:35am 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 October 11:35am FH: Down syndrome November 06, 2024 11:35 am FH: ovarian cancer November 06, 2024 11:35 am Infertility November 06, 2024 11:35 am November 06, 2024 11:35 am Supervision of normal first Ma y 2024 11:35am Cervical funneling affecting J [facility] 2024 8:06am 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 November 8:06am FH: Down syndrome November 20, 2024 8:06a m FH: ovarian cancer November 20, 2024 8:06a m Infertility November 20, 2024 8:06a m November 20, 2024 8:06a m Supervision of normal first Ju ne 2024 8:06am Cervical funneling affecting J une 2024 2:52pm 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 November 302024 2:52pm FH: Down syndrome November 30, 2024 2:52 pm FH: ovarian cancer November 30, 2024 2:52 pm Infertility November 30, 2024 2:52 pm November 30, 2024 2:52 pm Supervision of normal first Ju ne 2024 2:52pm Chief Complaint Admit Date ANATOMY August 10, 2024 3:28pm CHECK CERVICAL LENGTH August 25, 2024 4 :08pm 22 wk OB August 26, 2024 2:0 3pm 4 WEEK GROWTH September 08, 2024 4:2 3pm INT LAB ORDER September 19, 2024 7:00 am 26wk ob/glucose September 24, 2024 11: 33am GROWTH US, CHECK CERVICAL LENGTH September 162024 4:18pm 30wk ob October 21, 2024 8:17am 32 wk ob November 06, 2024 11:35 am 34 wk ob November 20, 2024 8:06a m 36wk ob November 30, 2024 2:52 pm 37wk ob December 08, 2024 3:36 pm Reason for Visit Admit Date Cervical funneling affecting M arch 2024 2:03pm FH: Down syndrome August 26, 2024 2:0 3pm FH: ovarian cancer August 26, 2024 2:0 3pm Infertility August 26, 2024 2:0 3pm August 26, 2024 2:0 3pm Supervision of normal first [facility] 2024 2:03pm Cervical funneling affecting A pril 2024 11:33am 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 September 152024 11:33am FH: Down syndrome September 24, 2024 11: 33am FH: ovarian cancer September 24, 2024 11: 33am Infertility September 24, 2024 11: 33am September 24, 2024 11: 33am Supervision of normal first Ap ril 2024 11:33am Cervical funneling affecting M ay 2024 8:17am 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 October 8:17am FH: Down syndrome October 21, 2024 8:17am FH: ovarian cancer October 21, 2024 8:17am Infertility October 21, 2024 8:17am October 21, 2024 8:17am Supervision of normal first Ma y 2024 8:17am Cervical funneling affecting M ay 2024 11:35am 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 October 11:35am FH: Down syndrome November 06, 2024 11:35 am FH: ovarian cancer November 06, 2024 11:35 am Infertility November 06, 2024 11:35 am November 06, 2024 11:35 am Supervision of normal first Ma y 2024 11:35am Cervical funneling affecting J [facility] 2024 8:06am 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 November 8:06am FH: Down syndrome November 20, 2024 8:06a m FH: ovarian cancer November 20, 2024 8:06a m Infertility November 20, 2024 8:06a m November 20, 2024 8:06a m Supervision of normal first [facility] 2024 8:06am Cervical funneling affecting J [facility] 2024 2:52pm 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 November 302024 2:52pm FH: Down syndrome November 30, 2024 2:52 pm FH: ovarian cancer November 30, 2024 2:52 pm Infertility November 30, 2024 2:52 pm November 30, 2024 2:52 pm Supervision of normal first [facility] 2024 2:52pm Cervical funneling affecting J [facility] 2024 3:36pm 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 December 082024 3:36pm FH: Down syndrome December 08, 2024 3:36 pm FH: ovarian cancer December 08, 2024 3:36 pm Infertility December 08, 2024 3:36 pm December 08, 2024 3:36 pm Supervision of normal first [facility] 2024 3:36pm Chief Complaint Admit Date CHECK CERVICAL LENGTH August 25, 2024 4 :08pm 22 wk OB August 26, 2024 2:0 3pm 4 WEEK GROWTH September 08, 2024 4:2 3pm INT LAB ORDER September 19, 2024 7:00 am 26wk ob/glucose September 24, 2024 11: 33am GROWTH US, CHECK CERVICAL LENGTH September 162024 4:18pm 30wk ob October 21, 2024 8:17am 32 wk ob November 06, 2024 11:35 am 34 wk ob November 20, 2024 8:06a m 36wk ob November 30, 2024 2:52 pm 37wk ob December 08, 2024 3:36 pm 38wk ob December 17, 2024 1:09p m Reason for Visit Admit Date Cervical funneling affecting M arch 2024 2:03pm FH: Down syndrome August 26, 2024 2:0 3pm FH: ovarian cancer August 26, 2024 2:0 3pm Infertility August 26, 2024 2:0 3pm August 26, 2024 2:0 3pm Supervision of normal first Ma rc 2024 2:03pm Cervical funneling affecting A pril 2024 11:33am 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 September 152024 11:33am FH: Down syndrome September 24, 2024 11: 33am FH: ovarian cancer September 24, 2024 11: 33am Infertility September 24, 2024 11: 33am September 24, 2024 11: 33am Supervision of normal first Ap ril 2024 11:33am Cervical funneling affecting M ay 2024 8:17am 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 October 8:17am FH: Down syndrome October 21, 2024 8:17am FH: ovarian cancer October 21, 2024 8:17am Infertility October 21, 2024 8:17am October 21, 2024 8:17am Supervision of normal first Ma y 2024 8:17am Cervical funneling affecting M ay 2024 11:35am 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 October 11:35am FH: Down syndrome November 06, 2024 11:35 am FH: ovarian cancer November 06, 2024 11:35 am Infertility November 06, 2024 11:35 am November 06, 2024 11:35 am Supervision of normal first Ma y 2024 11:35am Cervical funneling affecting J [facility] 2024 8:06am 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 November 8:06am FH: Down syndrome November 20, 2024 8:06a m FH: ovarian cancer November 20, 2024 8:06a m Infertility November 20, 2024 8:06a m November 20, 2024 8:06a m Supervision of normal first Ju 2024 8:06am Cervical funneling affecting J [facility] 2024 2:52pm 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 November 302024 2:52pm FH: Down syndrome November 30, 2024 2:52 pm FH: ovarian cancer November 30, 2024 2:52 pm Infertility November 30, 2024 2:52 pm November 30, 2024 2:52 pm Supervision of normal first Ju nj 2024 2:52pm Cervical funneling affecting J [facility] 2024 3:36pm 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 December 082024 3:36pm FH: Down syndrome December 08, 2024 3:36 pm FH: ovarian cancer December 08, 2024 3:36 pm Infertility December 08, 2024 3:36 pm December 08, 2024 3:36 pm Supervision of normal first Ju nj 2024 3:36pm Cervical funneling affecting J [facility] 2024 1:09pm 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 December 1:09pm FH: Down syndrome December 17, 2024 1:09p m FH: ovarian cancer December 17, 2024 1:09p m Infertility December 17, 2024 1:09p m December 17, 2024 1:09p m Supervision of normal first Ju 2024 1:09pm Chief Complaint Admit Date 4 WEEK GROWTH September 08, 2024 4:2 3pm INT LAB ORDER September 19, 2024 7:00 am 26wk ob/glucose September 24, 2024 11: 33am GROWTH US, CHECK CERVICAL LENGTH September 162024 4:18pm 30wk ob October 21, 2024 8:17am 32 wk ob November 06, 2024 11:35 am 34 wk ob November 20, 2024 8:06a m 36wk ob November 30, 2024 2:52 pm 37wk ob December 08, 2024 3:36 pm 38wk ob December 17, 2024 1:09p m uterine size date discrepancy December 23, 2024 5:49pm 39wk ob December 25, 2024 11:4 1am Reason for Visit Admit Date Cervical funneling affecting A pril 2024 11:33am 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 September 152024 11:33am FH: Down syndrome September 24, 2024 11: 33am FH: ovarian cancer September 24, 2024 11: 33am Infertility September 24, 2024 11: 33am September 24, 2024 11: 33am Supervision of normal first Ap ril 2024 11:33am Cervical funneling affecting M ay 2024 8:17am 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 October 8:17am FH: Down syndrome October 21, 2024 8:17am FH: ovarian cancer October 21, 2024 8:17am Infertility October 21, 2024 8:17am October 21, 2024 8:17am Supervision of normal first Ma y 2024 8:17am Cervical funneling affecting M ay 2024 11:35am 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 October 11:35am FH: Down syndrome November 06, 2024 11:35 am FH: ovarian cancer November 06, 2024 11:35 am Infertility November 06, 2024 11:35 am November 06, 2024 11:35 am Supervision of normal first Ma y 2024 11:35am Cervical funneling affecting J une 2024 8:06am 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 November 8:06am FH: Down syndrome November 20, 2024 8:06a m FH: ovarian cancer November 20, 2024 8:06a m Infertility November 20, 2024 8:06a m November 20, 2024 8:06a m Supervision of normal first Ju ne 2024 8:06am Cervical funneling affecting J une 2024 2:52pm 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 November 302024 2:52pm FH: Down syndrome November 30, 2024 2:52 pm FH: ovarian cancer November 30, 2024 2:52 pm Infertility November 30, 2024 2:52 pm November 30, 2024 2:52 pm Supervision of normal first Ju ne 2024 2:52pm Cervical funneling affecting J une 2024 3:36pm 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 December 082024 3:36pm FH: Down syndrome December 08, 2024 3:36 pm FH: ovarian cancer December 08, 2024 3:36 pm Infertility December 08, 2024 3:36 pm December 08, 2024 3:36 pm Supervision of normal first Ju ne 2024 3:36pm Cervical funneling affecting J [facility] 2024 1:09pm 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 December 1:09pm FH: Down syndrome December 17, 2024 1:09p m FH: ovarian cancer December 17, 2024 1:09p m Infertility December 17, 2024 1:09p m December 17, 2024 1:09p m Supervision of normal first Ju ly 2024 1:09pm Cervical funneling affecting J [facility] 2024 11:41am 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 December 252024 11:41am FH: Down syndrome December 25, 2024 11:4 1am FH: ovarian cancer December 25, 2024 11:4 1am Infertility December 25, 2024 11:4 1am December 25, 2024 11:4 1am Supervision of normal first Ju ly 2024 11:41am Chief Complaint Admit Date 4 WEEK GROWTH September 08, 2024 4:2 3pm INT LAB ORDER September 19, 2024 7:00 am 26wk ob/glucose September 24, 2024 11: 33am GROWTH US, CHECK CERVICAL LENGTH September 162024 4:18pm 30wk ob October 21, 2024 8:17am 32 wk ob November 06, 2024 11:35 am 34 wk ob November 20, 2024 8:06a m 36wk ob November 30, 2024 2:52 pm 37wk ob December 08, 2024 3:36 pm 38wk ob December 17, 2024 1:09p m uterine size date discrepancy December 23, 2024 5:49pm 39wk ob December 25, 2024 11:4 1am 40wk ob *HAPPY DUE DATE December 28, 2024 12:35pm Reason for Visit Admit Date Cervical funneling affecting A pril 2024 11:33am 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 September 152024 11:33am FH: Down syndrome September 24, 2024 11: 33am FH: ovarian cancer September 24, 2024 11: 33am Infertility September 24, 2024 11: 33am September 24, 2024 11: 33am Supervision of normal first Ap ril 2024 11:33am Cervical funneling affecting M ay 2024 8:17am 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 October 8:17am FH: Down syndrome October 21, 2024 8:17am FH: ovarian cancer October 21, 2024 8:17am Infertility October 21, 2024 8:17am October 21, 2024 8:17am Supervision of normal first Ma y 2024 8:17am Cervical funneling affecting M ay 2024 11:35am 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 October 11:35am FH: Down syndrome November 06, 2024 11:35 am FH: ovarian cancer November 06, 2024 11:35 am Infertility November 06, 2024 11:35 am November 06, 2024 11:35 am Supervision of normal first Ma y 2024 11:35am Cervical funneling affecting J une 2024 8:06am 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 November 8:06am FH: Down syndrome November 20, 2024 8:06a m FH: ovarian cancer November 20, 2024 8:06a m Infertility November 20, 2024 8:06a m November 20, 2024 8:06a m Supervision of normal first Ju ne 2024 8:06am Cervical funneling affecting J une 2024 2:52pm 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 November 302024 2:52pm FH: Down syndrome November 30, 2024 2:52 pm FH: ovarian cancer November 30, 2024 2:52 pm Infertility November 30, 2024 2:52 pm November 30, 2024 2:52 pm Supervision of normal first Ju ne 2024 2:52pm Cervical funneling affecting J une 2024 3:36pm 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 December 082024 3:36pm FH: Down syndrome December 08, 2024 3:36 pm FH: ovarian cancer December 08, 2024 3:36 pm Infertility December 08, 2024 3:36 pm December 08, 2024 3:36 pm Supervision of normal first Ju ne 2024 3:36pm Cervical funneling affecting J [facility] 2024 1:09pm 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 December 1:09pm FH: Down syndrome December 17, 2024 1:09p m FH: ovarian cancer December 17, 2024 1:09p m Infertility December 17, 2024 1:09p m December 17, 2024 1:09p m Supervision of normal first Ju ly 2024 1:09pm Cervical funneling affecting J [facility] 2024 11:41am 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 December 252024 11:41am FH: Down syndrome December 25, 2024 11:4 1am FH: ovarian cancer December 25, 2024 11:4 1am Infertility December 25, 2024 11:4 1am December 25, 2024 11:4 1am Supervision of normal first Ju ly 2024 11:41am Cervical funneling affecting J [facility] 2024 12:35pm 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 December 282024 12:35pm FH: Down syndrome December 28, 2024 12:3 5pm FH: ovarian cancer December 28, 2024 12:3 5pm Infertility December 28, 2024 12:3 5pm December 28, 2024 12:3 5pm Supervision of normal first Ju ly 2024 12:35pm Additional Source Comments INFORMATION SOURCE (unrecogn ized section and content) DATE CREATED AUTHOR 06/29/2021 [facility] ([place]) DATE CREATED AUTHOR AUTHOR'S ORGANIZ ATION 12/31/2024 [facility] Reason for Visit (unrecogniz ed section and content) Reason For Visit Description Workers Comp - Consult Preliminary reason f or visit data, not yet signed by the author as of his left index finger Care Teams (unrecognized sec tion and content) Team Status: Active Member Role Status Dates Dr. Miguel A Pappas MD Primary Care Provider Active Team Status: Inactive Member Role Status Dates Dr. Miguel A Pappas MD Primary Care Provider Active Start: April 23, 2024 End: April 23, 2024 OSKAR KELLOGG Attending Provider Active Start : April 23, 2024 End: April 23, 2024 OSKAR KELLOGG Referring Provider Active Start : April 23, 2024 End: April 23, 2024 Team Status: Inactive Member Role Status Dates OSKAR KELLOGG Attending Provider Active Start : May 04, 2024 End: May 16, 2024 OSKAR KELLOGG Referring Provider Active Start : May 04, 2024 End: May 16, 2024 Dr. Miguel A Pappas MD Primary Care Provider Active Start: May 04, 2024 End: May 16, 2024 Team Status: Inactive Member Role Status Dates Dr. Miguel A Pappas MD Primary Care Provider Active Start: May 25, 2024 End: May 25, 2024 OSKAR KELLOGG Attending Provider Active Start : May 25, 2024 End: May 25, 2024 OSKAR KELLOGG Referring Provider Active Start : May 25, 2024 End: May 25, 2024 Team Status: Inactive Member Role Status Dates Dr. Miguel A Pappas MD Primary Care Provider Active Start: July 29, 2024 End: July 29, 2024 Dr. Miguel A Pappas MD Referring Provider Active Start: July 29, 2024 End: July 29, 2024 Dr. Katelin Lazcano MD Attending Provider Active Start: July 29, 2024 End: July 29, 2024 Team Status: Inactive Member Role Status Dates Dr. Miguel A Pappas MD Primary Care Provider Active Start: July 29, 2024 End: July 29, 2024 Dr. Katelin Lazcano MD Attending Provider Active Start: July 29, 2024 End: July 29, 2024 Dr. Katelin Lazcano MD Referring Provider Active Start: July 29, 2024 End: July 29, 2024 Team Status: Inactive Member Role Status Dates Dr. Miguel A Pappas MD Primary Care Provider Active Start: August 10, 2024 End: August 10, 2024 Dr. Katelin Lazcano MD Attending Provider Active Start: August 10, 2024 End: August 10, 2024 Dr. Katelin Lazcano MD Referring Provider Active Start: August 10, 2024 End: August 10, 2024 Team Status: Inactive Member Role Status Dates Dr. Miguel A Pappas MD Primary Care Provider Active Start: August 25, 2024 End: August 25, 2024 Dr. Katelin Lazcano MD Attending Provider Active Start: August 25, 2024 End: August 25, 2024 Dr. Katelin Lazcano MD Referring Provider Active Start: August 25, 2024 End: August 25, 2024 Team Status: Inactive Member Role Status Dates Dr. iMguel A Pappas MD Primary Care Provider Active Start: August 26, 2024 End: August 26, 2024 Dr. Miguel A Pappas MD Referring Provider Active Start: August 26, 2024 End: August 26, 2024 Dr. Namita Garcia DO Attending Provider Activ e Start: August 26, 2024 End: August 26, 2024 Team Status: Inactive Member Role Status Dates Dr. Miguel A Pappas MD Primary Care Provider Active Start: September 08, 2024 End: September 08, 2024 Dr. Katelin Lazcano MD Attending Provider Active Start: September 08, 2024 End: September 08, 2024 Dr. Katelin Lazcano MD Referring Provider Active Start: September 08, 2024 End: September 08, 2024 Team Status: Inactive Member Role Status Dates Dr. Miguel A Pappas MD Primary Care Provider Active Start: September 19, 2024 End: September 19, 2024 Dr. Namita Garcia DO Attending Provider Activ e Start: September 19, 2024 End: September 19, 2024 Dr. Namita Garcia DO Referring Provider Activ e Start: September 19, 2024 End: September 19, 2024 Team Status: Inactive Member Role Status Dates Dr. Miguel A Pappas MD Primary Care Provider Active Start: September 24, 2024 End: September 24, 2024 Dr. Miguel A Pappas MD Referring Provider Active Start: September 24, 2024 End: September 24, 2024 Melinda Bauer CROP DUSTER, CROP DUSTER-C Attending Provider Active Start: September 24, 2024 End: September 24, 2024 Team Status: Inactive Member Role Status Dates Dr. Miguel A Pappas MD Primary Care Provider Active Start: October 06, 2024 End: October 06, 2024 Melinda Bauer CROP DUSTER, CROP DUSTER-C Attending Provider Active Start: October 06, 2024 End: October 06, 2024 Melinda Bauer CROP DUSTER, CROP DUSTER-C Referring Provider Active Start: October 06, 2024 End: October 06, 2024 Team Status: Inactive Member Role Status Dates Dr. Miguel A Pappas MD Primary Care Provider Active Start: October 21, 2024 End: October 21, 2024 Dr. Miguel A Pappas MD Referring Provider Active Start: October 21, 2024 End: October 21, 2024 Melinda Bauer CROP DUSTER, CROP DUSTER-C Attending Provider Active Start: October 21, 2024 End: October 21, 2024 Team Status: Inactive Member Role Status Dates Dr. Miguel A Pappas MD Primary Care Provider Active Start: November 06, 2024 End: November 06, 2024 Dr. Miguel A Pappas MD Referring Provider Active Start: November 06, 2024 End: November 06, 2024 Gaby Reynolds CNM Attending Provider Active S tart: November 06, 2024 End: November 06, 2024 Team Status: Inactive Member Role Status Dates Dr. Miguel A Pappas MD Primary Care Provider Active Start: November 20, 2024 End: November 20, 2024 Dr. Miguel A Pappas MD Referring Provider Active Start: November 20, 2024 End: November 20, 2024 Gaby Reynolds CNM Attending Provider Active S tart: November 20, 2024 End: November 20, 2024 Team Status: Inactive Member Role Status Dates Dr. Miguel A Pappas MD Primary Care Provider Active Start: November 30, 2024 End: November 30, 2024 Dr. Miguel A Pappas MD Referring Provider Active Start: November 30, 2024 End: November 30, 2024 Gaby Reynolds CNM Attending Provider Active S tart: November 30, 2024 End: November 30, 2024 Team Status: Inactive Member Role Status Dates Dr. Miguel A Pappas MD Primary Care Provider Active Start: November 30, 2024 End: November 30, 2024 Gaby Reynolds CNM Attending Provider Active S tart: November 30, 2024 End: November 30, 2024 Gaby Reynolds CNM Referring Provider Active S tart: November 30, 2024 End: November 30, 2024 Team Status: Inactive Member Role Status Dates Dr. Miguel A Pappas MD Primary Care Provider Active Start: December 08, 2024 End: December 08, 2024 Dr. Miguel A Pappas MD Referring Provider Active Start: December 08, 2024 End: December 08, 2024 Melinda Bauer NP, CROP DUSTER-C Attending Provider Active Start: December 08, 2024 End: December 08, 2024 Team Status: Active Member Role/Relationship Status Dates Dr. Miguel A Pappas MD Primary Care Provider Active Team Status: Inactive Member Role/Relationship Status Dates Dr. Miguel A Pappas MD Primary Care Provider Active Start: August 25, 2024 End: August 25, 2024 Dr. Katelin Lazcano MD Attending Provider Active Start: August 25, 2024 End: August 25, 2024 Dr. Katelin Lazcano MD Referring Provider Active Start: August 25, 2024 End: August 25, 2024 Team Status: Inactive Member Role/Relationship Status Dates Dr. Miguel A Pappas MD Primary Care Provider Active Start: August 26, 2024 End: August 26, 2024 Dr. Miguel A Pappas MD Referring Provider Active Start: August 26, 2024 End: August 26, 2024 Dr. Namita Garcia DO Attending Provider Activ e Start: August 26, 2024 End: August 26, 2024 Team Status: Inactive Member Role/Relationship Status Dates Dr. Miguel A Pappas MD Primary Care Provider Active Start: September 08, 2024 End: September 08, 2024 Dr. Katelin Lazcano MD Attending Provider Active Start: September 08, 2024 End: September 08, 2024 Dr. Katelin Lazcano MD Referring Provider Active Start: September 08, 2024 End: September 08, 2024 Team Status: Inactive Member Role/Relationship Status Dates Dr. Miguel A Pappas MD Primary Care Provider Active Start: September 19, 2024 End: September 19, 2024 Dr. Namita Garcia DO Attending Provider Activ e Start: September 19, 2024 End: September 19, 2024 Dr. Namita Garcia DO Referring Provider Activ e Start: September 19, 2024 End: September 19, 2024 Team Status: Inactive Member Role/Relationship Status Dates Dr. Miguel A Pappas MD Primary Care Provider Active Start: September 24, 2024 End: September 24, 2024 Dr. Miguel A Pappas MD Referring Provider Active Start: September 24, 2024 End: September 24, 2024 Melinda Bauer CROP DUSTER, CROP DUSTER-C Attending Provider Active Start: September 24, 2024 End: September 24, 2024 Team Status: Inactive Member Role/Relationship Status Dates Dr. Miguel A Pappas MD Primary Care Provider Active Start: October 06, 2024 End: October 06, 2024 Melinda Bauer CROP DUSTER, CROP DUSTER-C Attending Provider Active Start: October 06, 2024 End: October 06, 2024 Melinda Bauer CROP DUSTER, CROP DUSTER-C Referring Provider Active Start: October 06, 2024 End: October 06, 2024 Team Status: Inactive Member Role/Relationship Status Dates Dr. Miguel A Pappas MD Primary Care Provider Active Start: October 21, 2024 End: October 21, 2024 Dr. Miguel A Pappas MD Referring Provider Active Start: October 21, 2024 End: October 21, 2024 Melinda Bauer CROP DUSTER, CROP DUSTER-C Attending Provider Active Start: October 21, 2024 End: October 21, 2024 Team Status: Inactive Member Role/Relationship Status Dates Dr. Miguel A Pappas MD Primary Care Provider Active Start: November 06, 2024 End: November 06, 2024 Dr. Miguel A Pappas MD Referring Provider Active Start: November 06, 2024 End: November 06, 2024 Gaby Reynolds CNM Attending Provider Active S tart: November 06, 2024 End: November 06, 2024 Team Status: Inactive Member Role/Relationship Status Dates Dr. Miguel A Pappas MD Primary Care Provider Active Start: November 20, 2024 End: November 20, 2024 Dr. Miguel A Pappas MD Referring Provider Active Start: November 20, 2024 End: November 20, 2024 Gaby Reynolds CNM Attending Provider Active S tart: November 20, 2024 End: November 20, 2024 Team Status: Inactive Member Role/Relationship Status Dates Dr. Miguel A Pappas MD Primary Care Provider Active Start: November 30, 2024 End: November 30, 2024 Dr. Miguel A Pappas MD Referring Provider Active Start: November 30, 2024 End: November 30, 2024 Gaby Reynolds CNM Attending Provider Active S tart: November 30, 2024 End: November 30, 2024 Team Status: Inactive Member Role/Relationship Status Dates Dr. Miguel A Pappas MD Primary Care Provider Active Start: November 30, 2024 End: November 30, 2024 Gaby Reynolds CNM Attending Provider Active S tart: November 30, 2024 End: November 30, 2024 Gaby Reynolds CNM Referring Provider Active S tart: November 30, 2024 End: November 30, 2024 Team Status: Inactive Member Role/Relationship Status Dates Dr. Miguel A Pappas MD Primary Care Provider Active Start: December 08, 2024 End: December 08, 2024 Dr. Miguel A Pappas MD Referring Provider Active Start: December 08, 2024 End: December 08, 2024 Melinda Bauer CROP DUSTER, CROP DUSTER-C Attending Provider Active Start: December 08, 2024 End: December 08, 2024 Team Status: Inactive Member Role/Relationship Status Dates Dr. Miguel A Pappas MD Primary Care Provider Active Start: December 17, 2024 End: December 17, 2024 Dr. Miguel A Pappas MD Referring Provider Active Start: December 17, 2024 End: December 17, 2024 Dr. Katelin Lazcano MD Attending Provider Active Start: December 17, 2024 End: December 17, 2024 Team Status: Inactive Member Role/Relationship Status Dates Dr. Miguel A Pappas MD Primary Care Provider Active Start: September 08, 2024 End: September 08, 2024 Dr. Katelin Lazcano MD Attending Provider Active Start: September 08, 2024 End: September 08, 2024 Dr. Katelin Lazcano MD Referring Provider Active Start: September 08, 2024 End: September 08, 2024 Team Status: Inactive Member Role/Relationship Status Dates Dr. Miguel A Pappas MD Primary Care Provider Active Start: September 19, 2024 End: September 19, 2024 Dr. Namita Garcia DO Attending Provider Activ e Start: September 19, 2024 End: September 19, 2024 Dr. Namita Garcia DO Referring Provider Activ e Start: September 19, 2024 End: September 19, 2024 Team Status: Inactive Member Role/Relationship Status Dates Dr. Miguel A Pappas MD Primary Care Provider Active Start: September 24, 2024 End: September 24, 2024 Dr. Miguel A Pappas MD Referring Provider Active Start: September 24, 2024 End: September 24, 2024 Melinda Bauer CROP DUSTER, CROP DUSTER-C Attending Provider Active Start: September 24, 2024 End: September 24, 2024 Team Status: Inactive Member Role/Relationship Status Dates Dr. Miguel A Pappas MD Primary Care Provider Active Start: October 06, 2024 End: October 06, 2024 Melinda Bauer CROP DUSTER, CROP DUSTER-C Attending Provider Active Start: October 06, 2024 End: October 06, 2024 Melinda Bauer CROP DUSTER, CROP DUSTER-C Referring Provider Active Start: October 06, 2024 End: October 06, 2024 Team Status: Inactive Member Role/Relationship Status Dates Dr. Miguel A Pappas MD Primary Care Provider Active Start: October 21, 2024 End: October 21, 2024 Dr. Miguel A Pappas MD Referring Provider Active Start: October 21, 2024 End: October 21, 2024 Melinda Bauer CROP DUSTER, CROP DUSTER-C Attending Provider Active Start: October 21, 2024 End: October 21, 2024 Team Status: Inactive Member Role/Relationship Status Dates Dr. Miguel A Pappas MD Primary Care Provider Active Start: November 06, 2024 End: November 06, 2024 Dr. Miguel A Pappas MD Referring Provider Active Start: November 06, 2024 End: November 06, 2024 Gaby Reynolds CNM Attending Provider Active S tart: November 06, 2024 End: November 06, 2024 Team Status: Inactive Member Role/Relationship Status Dates Dr. Miguel A Pappas MD Primary Care Provider Active Start: November 20, 2024 End: November 20, 2024 Dr. Miguel A Pappas MD Referring Provider Active Start: November 20, 2024 End: November 20, 2024 Gaby Reynolds CNM Attending Provider Active S tart: November 20, 2024 End: November 20, 2024 Team Status: Inactive Member Role/Relationship Status Dates Dr. Miguel A Pappas MD Primary Care Provider Active Start: November 30, 2024 End: November 30, 2024 Dr. Miguel A Pappas MD Referring Provider Active Start: November 30, 2024 End: November 30, 2024 Gaby Reynolds CNM Attending Provider Active S tart: November 30, 2024 End: November 30, 2024 Team Status: Inactive Member Role/Relationship Status Dates Dr. Miguel A Pappas MD Primary Care Provider Active Start: November 30, 2024 End: November 30, 2024 Gaby Reynolds CNM Attending Provider Active S tart: November 30, 2024 End: November 30, 2024 Gaby Reynolds CNM Referring Provider Active S tart: November 30, 2024 End: November 30, 2024 Team Status: Inactive Member Role/Relationship Status Dates Dr. Miguel A Pappas MD Primary Care Provider Active Start: December 08, 2024 End: December 08, 2024 Dr. Miguel A Pappas MD Referring Provider Active Start: December 08, 2024 End: December 08, 2024 Melinda Bauer CROP DUSTER, CROP DUSTER-C Attending Provider Active Start: December 08, 2024 End: December 08, 2024 Team Status: Inactive Member Role/Relationship Status Dates Dr. Miguel A Pappsa MD Primary Care Provider Active Start: December 17, 2024 End: December 17, 2024 Dr. Miguel A Pappas MD Referring Provider Active Start: December 17, 2024 End: December 17, 2024 Dr. Katelin Lazcano MD Attending Provider Active Start: December 17, 2024 End: December 17, 2024 Team Status: Active Member Role/Relationship Status Dates Dr. Miguel A Pappas MD Primary Care Provider Active Start: December 23, 2024 Dr. Katelin Lazcano MD Attending Provider Active Start: December 23, 2024 Dr. Katelin Lazcano MD Referring Provider Active Start: December 23, 2024 Team Status: Inactive Member Role/Relationship Status Dates Dr. Miguel A Pappas MD Primary Care Provider Active Start: December 25, 2024 End: December 25, 2024 Dr. Miguel A Pappas MD Referring Provider Active Start: December 25, 2024 End: December 25, 2024 Dr. Katelin Lazcano MD Attending Provider Active Start: December 25, 2024 End: December 25, 2024 Team Status: Inactive Member Role/Relationship Status Dates Dr. Miguel A Pappas MD Primary Care Provider Active Start: December 28, 2024 End: December 28, 2024 Dr. Miguel A Pappas MD Referring Provider Active Start: December 28, 2024 End: December 28, 2024 Dr. Namita Garcia DO Attending Provider Activ e Start: December 28, 2024 End: December 28, 2024 Team Status: Inactive Member Role/Relationship Status Dates Dr. Miguel A Pappas MD Primary Care Provider Active Start: December 23, 2024 End: December 23, 2024 Dr. Katelin Lazcano MD Attending Provider Active Start: December 23, 2024 End: December 23, 2024 Dr. Katelin Lazcano MD Referring Provider Active Start: December 23, 2024 End: December 23, 2024 Goals (unrecognized section and content) Goals may be documented in a n alternate sectionGoals may be documented in an alternate sectionGoals may be documented in an alternate sectionGoals may be documented in an alternate sectionGoals may be documented in an alternate sectionGoals may be documented in an alternate sectionGoals may be documented in an alternate sectionGoals may be documented in an alternate sectionGoals may be documented in an alternate sectionGoals may be documented in an alternate sectionGoals may be documented in an alternate sectionGoals may be documented in an alternate sectionGoals may be documented in an alternate section FOR RECORDS PERTAINING TO PATIENTS WHO ARE OR HAVE BEEN ENROLLED IN A CHEMICAL DEPENDENCY/SUBSTANCEABUSE PROGRAM, SOME INFORMATION MAY BE OMITTED. This clinical summary was aggregated from multiple sources. Caution should be exercised in using it in the provision of clinical care. This summary normalizes information from multiple sources, and as a consequence, information in this document may materially change the coding, format and clinical context of patient data. In addition, data may be omitted in some cases. CLINICAL DECISIONS SHOULD BE BASED ON THE PRIMARY CLINICAL RECORDS. [employer] provides no warranty or guarantee of the accuracy or completeness of information in this document.
--- NOTE | 2025-01-04 07:33 | HP.PCM.OB_ITS ---
HPI - General General Date of Admission: 01/04/25 Date of Service: 01/04/25 HPI Narrative AIDAN PERAZA, is a 29 F at 41.0 weeks who presents to unit for postdate induction of labor. No consistent contractions but having occasional guadalupe esquivel. +FM. Maternal Data Information CHAVA Calculator Estimated Delivery Date Method Current WG Current Estimate 12/28/24 Ultrasound #1 41w 0d Final CHAVA: 12/28/24 Final CHAVA Source: US >20 weeks Gestational age: 41.0 PFSH PFS Medical History Laceration with foreign body of left index finger without damage to nail, initial encounter Puncture wound without foreign body of left index finger without damage to nail, initial encounter Laceration of left index finger with foreign body Puncture wound of left index finger Home Medications Medication Instructions Recorded Last Taken Type PNV 153-FA 400 mcg-om3 35 mg-dha tab PO 07/28/24 Unkno wn History 25 mg-epa 5 mg-fish oil chew tablet Allergy/AdvReac Type Severity Reaction Status Date / Time No Known Allergies Allergy Verified 12/28/24 11:55 Family History Grandmother Cancer Maternal ovarian, colon with metastasis Grandfather Myocardial infarction Maternal-2 AZ's Social History adopted: No household members: spouse current occupational status: employed current occupation: [employer] current occupational exposures/hazards: No pets and animals: Yes pets and animals: dog(s) history of recent travel: No sexually active: Yes Smoking Status: Never smoker alcohol intake: never substance use type: does not use well-balanced diet: daily or most days caffeine: No eating out: rarely or never during the past year weight has: remained stable what type of physical activity do you participate in: running, weight training and other details: Kickboxing frequency: 3-4 times per week duration: 45-60 minutes/day john/latter-day: Yazdanism seatbelt use: always do you feel safe at home: Yes 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 @ [employer] History 1 Elective abortions Hx Para 0 Spontaneous abortions Hx # Term Pregnancies Ectopic pregnancies Hx # Pregnancies Multiple births # of living children Visit Details Expected Delivery Route/Plan Labor Preferences- CB/BF classes: enc labor support person: Kelvin labor intervention preferences: [] pain management options preferred: limited cut cord/dad catch: yes : yes PP control planned: [] discussed possible routes of delivery and associated risks: [] special requests: [] Plans Covid status: [] Flu vaccine: [] Tdap vaccine: declines Rhogam: NA LARC form signed: yes Problem list reviewed and updated with the most current plan of care details and appropriate orders placed. Relevant counseling for the gestational age provided. 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 planning hospital delivery 09/24/24 - - - - - - - - - - - - - 26w 3d 182 lb 6 oz 128/76 Nega tive - - - - - - - - - - - - - Negative 137 26 - - - - - - - - - - - - - MH-No VB, LOF or CTX. Larc. Ordered growth US and recheck CL. 10/21/24 - - - - - - - - - - - - - 30w 2d 186 lb 4 oz 112/68 Nega tive - - - - - - - - - - - - - Negative 138 30 - - - - - - - - - - - - - -No VB, LOF. G ood FM. No concerns 11/06/24 - - - - - - - - - - - - - 32w 4d 188 lb 2 oz 130/74 Nega tive - - - - - - - - - - - - - Negative 135 31 - - - - - - - - - - - - - KW- no vb/lof/ct x. good fm. 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 no concerns today 11/20/24 - - - - - - - - - - - - - 34w 4d 189 lb 8 oz 122/68 Nega tive - - - - - - - - - - - - - Negative 145 34 - - - - - - - - - - - - - KW-no vb/lof/ctx . good fm. no concerns today 11/30/24 - - - - - - - - - - - - - 36w 0d 191 lb 6 oz 122/70 Nega tive - - - - - - - - - - - - - Negative 130 35 Cephalic 1 - - - - - - - - - - - - - 30 -2 - no vb/ lof/ctx. good fm. GBS today. 12/08/24 - - - - - - - - - - - - - 37w 1d 191 lb 4 oz 118/72 Nega tive - - - - - - -- - - - - - - Negative 141 36 Cephalic 1 - - - - - - - - - - - - - 30 -2 -No VB. LOF. No change in cervix. GBS neg. No CTX. Good FM 12/17/24 - - - - - - - - - - - - - 38w 3d 192 lb 123/73 - - - - - - - - - - - - - 140 34 Cephalic 1 - - - - - - - - - - - - - - no vb lof go od fm no reuglar ctx 12/25/24 - - - - - - - - - - - - - 39w 4d 190 lb 111/69 Negative - - - - - - - - - - - - - Negative 140 34 Cephalic 1 - -- - - - - - - - - - - - SM- reviewed US and normal 2 days ago good fm no regular ctx 12/28/24 - - - - - - - - - - - - - 40w 0d 190 lb 8 oz 113/74 Nega tive - - - - - - - - - - - - - Negative 157 35 Cephalic 2 - - - - - - - - - - - - - 70 -2 JV- MARIE is 8.57. wants to do an IOL at 41 weeks. NST FHR Rate Baby A Baseline: 130 Variability:: Moderate Accelerations:: 15 x 15 Decelerations:: None NST Reactive:: Yes FHR Category:: Category I Uterine Activity:: irregular ROS Constitutional Constitutional: Denies change in weight, fatigue, fever(s), headache(s), poor appetite or weakness Eyes Eyes: Denies blurry vision, change in vision, floaters, seeing flashes or spots in vision ENT HEENT: Denies dizziness, headache(s), loss taste/smell or sore throat Cardiovascular Cardiovascular: Denies chest pain, dizziness, dyspnea, irregular heart rhythm, lightheadedness, palpitations or rapid heart rate Respiratory/Chest Respiratory/Chest: Denies change in mental status, chest tightness, cough, dyspnea or breast pain Gastrointestinal Gastrointestinal: Denies anorexia, chewing difficulty, constipation, diarrhea or weight changes Genitourinary Genitourinary: Denies difficulty urinating, dysuria, flank pain, genital pain, urinary frequency or urinary urgency Musculoskeletal Musculoskeletal: Denies back pain, difficulty walking, extremity pain, joint pain, muscle cramps or muscle weakness Integumentary Integumentary: Denies lesions or unusual bruising Neurologic Neurologic: Denies abnormal movements, abnormal speech, dizziness, numbness, seizure-like activity, syncope or weakness Psychiatric Psychiatric: Denies behavioral changes, change in appetite, confusion, depression, homicidal ideation, suicidal ideation or suicidal thoughts Endocrine Endocrinology: Denies excessive sweating, polydipsia or polyuria Hematologic/Lymphatic Hematologic/Lymphatic: Denies anemia Allergic/Immunologic Allergic/Immunologic: Denies itchy eyes, lip swelling, throat swelling, tongue swelling or wheezing Vital Signs Vital Signs Vital Signs: Weight Weight: 191 lb 6 oz Body Mass Index (BMI) 28.2 Physical Exam Const alert, oriented x3 and no apparent distress General Appearance: cooperative Orientation / Consciousness: awake HEENT normocephalic Neck full ROM Lymph Lymphatic: no lymphadenopathy noted Chest inspection of chest normal Resp normal respiratory effort and normal air movement Effort and Inspection: able to speak in complete sentences and symmetric chest movement GI soft to palpation and non-tender Inspection: gravid Palpation: soft; Negative for tender external exam normal Back/Spine normal to inspection Extremity normal to inspection and full ROM Skin no rashes or lesions noted Psych mental status grossly normal Appearance: grossly normal Speech: normal speech Labs Labs Labs: Blood Type A POSITIVE Antibody Screen NEGATIVE Hct 33.8 % (37-47) L Hgb 11.6 g/dL (12.0-15.0) L Obstetrics Ultrasound Syphilis Total Ab Nonreactive (Nonreactive) VZV IgG Antibody 912 index (Immune >165) Rubella IgG Antibody Reactive (Nonreactive) Hep Bs Antigen Non-Reactive (Nonreactive) Hepatitis C Antibody Non-Reactive (Nonreactive) Chlamydia DNA (MICHAEL) Negative (Negative) N.gonorrhoeae DNA (MICHAEL) Negative (Negative) HIV 1&2 Antibody Nonreactive (Nonreactive) Glucose 1 Hr 50 gm 92 mg/dL (70-140) Miscellaneous Test Assessment & Plan (1) Encounter for induction of labor: PLAN: Patient presents IOL, plan management for with pitocin/AROM. Pain management: plans no epidural. GBS negative. Management of any complications: none I have reviewed the [facility] and made any clinically relevant updates. Dr Silva aware of assessment, plan and admission. agrees with above (2) 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: COMMENT: confirmatory negative (3) Cervical funneling affecting : QUALIFIERS: Trimester: second trimester Qualified Code(s): O34.32 - Maternal care for cervical incompetence, second trimester COMMENT: stable. (4) FH: ovarian cancer: COMMENT: Maternal Grandmother (5) Infertility: COMMENT: 3 years to conceive (6) FH: Down syndrome: COMMENT: Paternal Aunt (7) Supervision of normal first : QUALIFIERS: Trimester: third trimester Qualified Code(s): Z34.03 - Encounter for supervision of normal first , third trimester COMMENT: [id number], CHAVA 12/28/24 Sushma. Kelvin (8) : QUALIFIERS: Weeks of gestation: 40 weeks Qualified Code(s): Z3A.40 - 40 weeks gestation of COMMENT: GBS neg, declined genetic & carrier testing, afp screening. Charges/Coding Multi Select Codes Urinary/Genital Urinary/Genital CPT Codes: No Charge
--- OUTSIDE RECORDS SUMMARY | 2025-01-04 07:36 | XMS RPT_ITS | CCD ---
Author Organization [facility] CliniSyne Care Team Providers Care Quahogger Name Role Phone Jose Luis HANNAH, Cash Chu Unavailable [phone] Elyse HANNAH, Dr. Grady Primary Care Provider RAJ SCHMITT Attending Provider RAJ SCHMITT Referring Provider [phone] Miguel A Pappas MD Referring Provider Dr. Katelin Lazcano MD Attending Provider Dr. Katelin Lazcano MD Referring Provider Dr. Miguel A Pappas MD Primary Care Provider [phone] RAJ SCHMITT Attending Provider RAJ SCHMITT Referring [...] Dr. Katelin Lazcano MD Attending Provider [phone] Jaleesa HANNAH, Dr. Thomason Referring Provider Elyse HANNAH, Dr. Grady Referring Provider Gaby Reynolds CNM Referring Provider [phone] Elyse HANNAH, Dr. Grady Primary Care Provider [phone] Jaleesa HANNAH, Dr. Thomason Attending Provider Jaleesa HANNAH, Dr. Thomason Referring Provider Elyse HANNAH, Dr. Grady Primary Care Provider [phone] Jaleesa HANNAH, Dr. Thomason Attending Provider Jaleesa HANNAH, Dr. Thomason Referring Provider [phone] Yash Gray DO, Dr. Breaux Attending Provider Elyse HANNAH, Dr. Grady Referring Provider Namita Garcia Admitting Unavailabl e Namita Garcia Attending Unavailabl e Elyse, Miguel A Primary Care Unavailable Elyse, Miguel A Primary Care Unavailable Marcanthony, Katelin Referring Unavailable Coryanthony, Katelin Attending Unavailable TARNOWSKI Referring Unavailable TARNOWSKI Attending Unavailable Elyse, Miguel A Primary Care Unavailable Elyse, Miguel A Referring Unavailable Elyse, Miguel A Primary Care Unavailable Juancarlos HAND WELT BUTTER, Melinda Attending Unavailable Alanna Mccall Attending Unavailable [...] Elyse, Miguel A Primary Care Unavailable Juancarlos HAND WELT BUTTER, Melinda Attending Unavailable Juancarlos HAND WELT BUTTER, Melinda Referring Unavailable TARNOWSKI Attending Unavailable TARNOWSKI [...] Elyse, Miguel A Primary Care Unavailable Juancarlos HAND WELT BUTTERMelinda Attending Unavailable Elyse, Miguel A Referring Unavailable Elyse, Miguel A Primary Care Unavailable Juancarlos HAND WELT BUTTERMelinda Attending Unavailable TARNOWSKI Referring Unavailable Elyse, Miguel [...] Class(es) Dates Sig (Normalized) Sig (Original) Pnv No.319-Ub-Eu5-Dha-Ep a-Fish 400 mcg-35 mg- 25 mg-5 mg tablet,chewable (13 sources) Start: 07-28-2024 Pnv No.616-Kh-Wb6-Dha-E pa-Fish 400 mcg-35 mg- 25 mg-5 mg tablet,chewable Active {tbl} PO July 28, 2024 1:00am Start: 07-28-2024 Pnv No.153-Fa- Aw9-Xry-Peo-Fish 400 mcg-35 mg- 25 mg-5 mg tablet,chewable [...] genetic & c arrier testing, afp screening. [id number], CHAVA 12/28/24 . Kelvin PAGQ2G1, CHAVA 12/28/24 Sushma. Kelvin GBS neg, declined [...] Lazcano on 12-25-2024 Glucose Ql (U) Negative [facility] Laboratory - UrinalysisOrder ed By: Katelin Lazcano on 12-25-2024 Protein Ql (U) Negative [facility] Dredging Inspector Office Visit Reporton 12-25-2024 Dredging Inspector Office Visit Report [facility] [address], [address] [place] [address] OFFICE VISIT Date of Service: 12/25/24 MR#: [id number] Acct: [id number] Name: AIDAN PERAZA Rep #: [id number] : 1995 Provider: Dr. Katelin marie MD Age/Sex: 29/F Location[place] [facility] [place] Status: Signed Intake Vital Signs 11/20/24 08:08 07/03/25 13:12 12/25/24 11:44 Height 5 ft 9 in 5 ft 9 in 5 ft 9 in Weight: 190 lb BMI 28.0 BP 111/69 Intake Visit Reasons: 39wk ob Problem Manager Required: No Is patient in pain?: No [...] colon with metastasis Grandfather Myocardial infarction Maternal-2 CT's Social History adopted: No household members: spouse current occupational status: employed current occupation: [employer] current occupational exposures/hazards: No pets and animals: [...] 3-4 times per week duration: 45-60 minutes/day john/church: Buddhist seatbelt use: always do you feel safe at home: Yes 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 (more content not included)... Normal [facility] OB Limited With Biometricson 12-23-2024 OB Limited With Biometrics [facility] [address] [place] [address] OB Limited With Biometrics MR#: [id number] Acct: [id number] Name: AIDAN PERAZA Rep #: [id number] : 1995 F 29 From: Ky ceron MD PCP: Dr. Miguel A Pappas MD Status: REG CLI Study: OB Limited With Biometrics Date of Exam: 12/23 Exam# [id number] Ordering Dr: Katelin Lazcano PROCEDURE: OB LIMITED [...] within lower limits of normal. Reading Location: [place] [address] CC: Dr. Miguel A Pappas MD; Dr. Katelin Lazcano MD Crystal Finisher: Signed Normal [facility] Dredging Inspector Office Visit Reporton 12-17-2024 Dredging Inspector Office Visit Report [facility] [address], [address] [place] [address] OFFICE VISIT Date of Service: 12/17/24 MR#: [id number] Acct: [id number] Name: AIDAN PERAZA Rep #: [id number] : 1995 Provider: Dr. Katelin marie MD Age/Sex: 29/F Location[place] [facility] [place] Status: Signed Intake Vital Signs 11/20/24 08:08 12/08/24 15:44 12/17/24 13:12 Height 5 ft 9 in 5 ft 9 in 5 ft 9 in Weight: 192 lb BMI 28.3 BP 123/73 H Intake Visit Reasons: 38wk ob Problem Manager Required: No Is patient in pain?: No [...] colon with metastasis Grandfather Myocardial infarction Maternal-2 CT's Social History adopted: No household members: spouse current occupational status: employed current occupation: [employer] current occupational exposures/hazards: No pets and animals: [...] 3-4 times per week duration: 45-60 minutes/day john/church: Buddhist seatbelt use: always do you feel safe at home: Yes 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 (more content not included)... Normal [facility] Laboratory - Chemistry and C hemistry - challengeOrdered By: Melinda Bauer on 12-08-2024 Glucose Ql (U) Negative [facility] Laboratory - UrinalysisOrder ed By: Melinda Bauer on 12-08-2024 Protein Ql (U) Negative [facility] Dredging Inspector Office Visit Reporton 12-08-2024 Dredging Inspector Office Visit Report [facility] [address], [address] [place] [address] OFFICE VISIT Date of Service: 12/08/24 MR#: [id number] Acct: [id number] Name: AIDAN PERAZA Rep #: [id number] : 1995 Provider: CHANO joya Age/Sex: 29/F Location: [facility] [place] Status: Signed Intake Vital Signs 11/20/24 08:08 11/30/24 14:58 12/08/24 15:43 12/08/24 15:44 Height 5 ft 9 in 5 ft 9 in 5 ft 9 in 5 ft 9 in Weight: 191 lb 4 oz BMI 28.2 BP 118/72 Intake Visit Reasons: 37wk ob Chief Complaint: 37 Week OB Problem Manager Required: No Is patient in pain?: No [...] colon with metastasis Grandfather Myocardial infarction Maternal-2 CT's Social History adopted: No household members: spouse current occupational status: employed current occupation: [employer] current occupational exposures/hazards: No pets and animals: [...] 3-4 times per week duration: 45-60 minutes/day john/church: Buddhist seatbelt use: always do you feel safe at home: Yes 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 (more content not included)... Normal [facility] Rule out Beta Strep (Grp. B) on 12-02-2024 LEX Group B Beta Streptococcus is not isolated. Normal [facility] Comment on above: Performed By: #### L 700.8000 #### [facility] Laboratory [address] [place], [address] Laboratory - Chemistry and C hemistry - challengeOrdered By: Gaby Reynolds on 11-30-2024 Glucose Ql (U) Negative [facility] Laboratory - UrinalysisOrder ed By: Gaby Reynolds on 11-30-2024 Protein Ql (U) Negative [facility] Dredging Inspector Office Visit Reporton 11-30-2024 Dredging Inspector Office Visit Report [facility] [address], [address] [place] [address] OFFICE VISIT Date of Service: 11/30/24 MR#: [id number] Acct: [id number] Name: AIDAN PERAZA Rep #: [id number] : 1995 Provider: MINDY Hernandez ams Age/Sex: 29/F Location: [facility] [place] Status: Signed Intake Vital Signs 11/06/24 11:36 11/20/24 08:08 11/30/24 14:58 Height 5 ft 9 in 5 ft 9 in 5 ft 9 in Weight: 191 lb 6 oz BMI 28.2 BP 122/70 H Intake Visit Reasons: 36wk ob Chief Complaint: 36wk OB Problem Manager Required: No Is patient in pain?: No [...] colon with metastasis Grandfather Myocardial infarction Maternal-2 CT's Social History adopted: No household members: spouse current occupational status: employed current occupation: [employer] current occupational exposures/hazards: No pets and animals: [...] 3-4 times per week duration: 45-60 minutes/day john/church: Buddhist seatbelt use: always do you feel safe at home: Yes 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 Normal [facility] Screening beta-hemolytic Str eptococcus cultureOrdered By: Gaby Reynolds on 11-30-2024 Beta-hemolytic Streptococcus culture Group B Beta Streptococcus is not isolated. [facility] Laboratory - Chemistry and C hemistry - challengeOrdered By: Gaby Reynolds on 11-20-2024 Glucose Ql (U) Negative [facility] Laboratory - UrinalysisOrder ed By: Gaby Reynolds on 11-20-2024 Protein Ql (U) Negative [facility] Dredging Inspector Office Visit Reporton 11-20-2024 Dredging Inspector Office Visit Report [facility] [address], [address] [place] [address] OFFICE VISIT Date of Service: 11/20/24 MR#: [id number] Acct: [id number] Name: AIDAN PERAZA Rep #: [id number] : 1995 Provider: MINDY Hernandez ams Age/Sex: 29/F Location: [facility] [place] Status: Signed Intake Vital Signs 10/21/24 08:19 11/06/24 11:36 11/20/24 08:08 Height 5 ft 9 in 5 ft 9 in 5 ft 9 in Weight: 189 lb 8 oz BMI 28.0 BP 122/68 H Intake Visit Reasons: 34 wk ob Chief Complaint: 34 Week OB Problem Manager Required: No Is patient in pain?: No [...] colon with metastasis Grandfather Myocardial infarction Maternal-2 CT's Social History adopted: No household members: spouse current occupational status: employed current occupation: [employer] current occupational exposures/hazards: No pets and animals: [...] 3-4 times per week duration: 45-60 minutes/day john/church: Buddhist seatbelt use: always do you feel safe at home: Yes 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 (more content not included)... Normal [facility] Laboratory - Chemistry and C hemistry - challengeOrdered By: Gaby Reynolds on 11-06-2024 Glucose Ql (U) Negative [facility] Laboratory - UrinalysisOrder ed By: Gaby Reynolds on 11-06-2024 Protein Ql (U) Negative [facility] Dredging Inspector Office Visit Reporton 11-06-2024 Dredging Inspector Office Visit Report [facility] [address], [address] [place] [address] OFFICE VISIT Date of Service: 11/06/24 MR#: [id number] Acct: [id number] Name: AIDAN PERAZA Rep #: [id number] : 1995 Provider: MINDY Hernandez ams Age/Sex: 29/F Location[place] [facility] [place] Status: Signed Intake Vital Signs 10/21/24 08:19 11/06/24 11:36 Height 5 ft 9 in 5 ft 9 in Weight: 188 lb 2 oz BMI 27.8 BP 130/74 H Intake Visit Reasons: 32 wk ob Chief Complaint: 32wk OB Problem Manager Required: No Is patient in pain?: No [...] colon with metastasis Grandfather Myocardial infarction Maternal-2 CT's Social History adopted: No household members: spouse current occupational status: employed current occupation: [employer] current occupational exposures/hazards: No pets and animals: [...] 3-4 times per week duration: 45-60 minutes/day john/church: Buddhist seatbelt use: always do you feel safe at home: Yes 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 (more content not included)... Normal [facility] Laboratory - Chemistry and C hemistry - challengeOrdered By: Melinda Bauer on 10-21-2024 Glucose Ql (U) Negative [facility] Laboratory - UrinalysisOrder ed By: Melinda Bauer on 10-21-2024 Protein Ql (U) Negative [facility] Dredging Inspector Office Visit Reporton 10-21-2024 Dredging Inspector Office Visit Report [facility], [facility] [address] [place] [address] OFFICE VISIT Date of Service: 10/21/24 MR#: [id number] Acct: [id number] Name: AIDAN PERAZA Rep #: [id number] : 1995 Provider: CHANO joya Age/Sex: 29/F Location: [facility] [place] Status: Signed Intake Vital Signs 09/24/24 11:35 10/21/24 08:19 Height 5 ft 9 in 5 ft 9 in Weight: 186 lb 4 oz BMI 27.5 BP 112/68 Intake Visit Reasons: 30wk ob Chief Complaint: 30 Week OB Problem Manager Required: No Is patient in pain?: No Allergies No Known Allergies Allergy (Verified 10/21/24 08:21) Medications ???Medication ???Instructions ???Recorded ???Confirmed ???Type PNV 153-FA 400 mcg-om3 35 mg-dha tab PO 07/28/24 10/21/24 History 25 mg-epa 5 mg-fish oil chew tablet Last Menstrual Period: 05/27/24 Zika: Zika virus screening: Negative : Yes [facility] Medical History Laceration with foreign body of left index finger without damage to nail, initial encounter Puncture wound without foreign body of left index finger without damage to nail, initial encounter Laceration of left index finger with foreign body Puncture wound of left index finger Family History Grandmother Cancer Maternal ovarian, colon with metastasis Grandfather Myocardial infarction Maternal-2 CT's Social History adopted: No household members: spouse current occupational status: employed current occupation: [employer] current occupational exposures/hazards: No pets and animals: [...] 3-4 times per week duration: 45-60 minutes/day john/church: Buddhist seatbelt use: always do you feel safe at home: Yes additional social history: Kelvin-[employer] @ [employer] History 1 Elective abortions Hx Para 0 [...] ???-???-???-???-???-???- 135 -???-???-???-???-???-???- ???-???-???-???-???-???- SM- jason from welfare centre manager to be able to deliver here, [...] Negative 13 (more content not included)... Normal [facility] OB Limited With Biometricson 10-06-2024 OB Limited With Biometrics [facility] [place] [place] [address] OB Limited With Biometrics MR#: [id number] Acct: [id number] Name: AIDAN PERAZA Rep #: [id number] : 1995 F 29 From: Ky ceron MD PCP: Dr. Miguel A Pappas MD Status: REG CLI Study: OB Limited With Biometrics Date of Exam: 10/06 Exam# [id number] Ordering Dr: Melinda Bauer HAND WELT BUTTER HAND WELT BUTTER -C PROCEDURE: OB LIMITED WITH BIOMETRICS 10/06/2024 [...] Cervical length measures 3.8 cm. Reading Location: [facility] CC: CHANO Bauer; Dr. Miguel A Pappas MD Crystal Finisher: Signed Normal [facility] HIVon 09-24-2024 HIV Non-Reactive Normal Nonreactive [facility] Comment on above: Order Comment: PN Result Comment: Non- Reactive Reactive Repeatedly reactive samples must be confirmed according to CDC recommended confirmatory algorithms. The subresults for either HIVAG or AHIV can be used as an aid in the selection of the confirmation algorithm for reactive samples. Send out specimens with Reactive results to [facility] for confirmation. Order the HIV antibody detection and differentiation: [id number] Performed By: #### B TS, L100.0100 #### [facility] Laboratory [address] [place], [place], [id number] Laboratory - Chemistry and C hemistry - challengeOrdered By: Melinad Bauer on 09-24-2024 Glucose Ql (U) Negative [facility] Laboratory - UrinalysisOrder ed By: Melinda Bauer on 09-24-2024 Protein Ql (U) Negative [facility] Dredging Inspector Office Visit Reporton 09-24-2024 Dredging Inspector Office Visit Report [facility], [address] [place] [address] OFFICE VISIT Date of Service: 09/24/24 MR#: [id number] Acct: [id number] Name: AIDAN PERAZA Rep #: [id number] : 1995 Provider: CHANO joya Age/Sex: 29/F Location[place] [facility] [place] Status: Signed Intake Vital Signs 08/26/24 14:20 09/24/24 11:35 Height 5 ft 9 in 5 ft 9 in Weight: 182 lb 6 oz BMI 26.9 BP 128/76 H Intake Visit Reasons: 26wk ob/glucose Problem Manager Required: No Is patient in pain?: No Allergies No Known Allergies Allergy (Verified 09/24/24 11:35) Medications ???Medication ???Instructions ???Recorded ???Confirmed ???Type PNV 153-FA 400 mcg-om3 35 mg-dha tab PO 07/28/24 09/24/24 History 25 mg-epa 5 mg-fish oil chew tablet Last Menstrual Period: 05/27/24 : Yes [facility] Medical History Laceration with foreign body of left index finger without damage to nail, initial encounter Puncture wound without foreign body of left index finger without damage to nail, initial encounter Laceration of left index finger with foreign body Puncture wound of left index finger Family History Grandmother Cancer Maternal ovarian, colon with metastasis Grandfather Myocardial infarction Maternal-2 CT's Social History adopted: No household members: spouse current occupational status: employed current occupation: [employer] current occupational exposures/hazards: No pets and animals: [...] 3-4 times per week duration: 45-60 minutes/day john/church: Buddhist seatbelt use: always do you feel safe at home: Yes 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 Normal [facility] Syphilis Antibodieson 2024 Syphilis Abs Non-Reactive Normal Nonreactive [facility] Comment on above: Order Comment: PN Performed By: #### B TS, L100.0100 #### [facility] Laboratory [address] [place], [address] Absolute lymphocyte countOrd ered By: Namita Gray on 09-19-2024 Lymphocytes Auto (Unsp spec) [#/Vol] 1.55 10*3/uL 0.83-4.51 [facility] Absolute neutrophil countOrd ered By: Namita Gray on 09-19-2024 Neutrophils (Bld) [#/Vol] 6.7 10*3/uL 2.0-7.7 [facility] Automated lymphocyte count a s percentage of total leukocytesOrdered By: Namita Gray on 09-19-2024 Lymphocytes/100 WBC Auto (Unsp spec) 17.4 % Low 19-41 [facility] Basophil percentageOrdered B y: Namita Gray on 09-19-2024 Basophils/100 WBC (Bld) 0.2 % 0-1 [facility] CBC W/Diff, Automatedon Absolute Lymph 1.55 X10 3/uL Normal 0.83-4.51 [facility] Comment on above: Performed By: #### L 700.8000 #### [facility] [address] [place], [address] Absolute Neut 6.7 X10 3/uL Normal 2.0-7.7 [facility] Comment on above: Performed By: #### L 700.8000 #### [facility] [address] [place], [address] Basophils/100 WBC (Bld) 0.2 % Normal 0-1 [facility] Comment on above: Performed By: #### L 700.8000 #### [facility] [address] [place], [address] Eosinophils/100 WBC (Bld) 0.9 % Normal 0-5 [facility] Comment on above: Performed By: #### L 700.8000 #### [facility] [address] [place], [address] Erythrocyte distribution width (RBC) [Ratio] 12.7 % Normal 11.6-14.6 [facility] Comment on above: Performed By: #### L 700.8000 #### [facility] [address] [place], [address] Hematocrit (Bld) [Volume fraction] 33.8 % Low 37-47 [facility] Comment on above: Performed By: #### L 700.8000 #### [facility] [address] [place], [address] Hemoglobin (Bld) [Mass/Vol] 11.6 g/dL Low 12.0-15.0 [facility] Comment on above: Performed By: #### L 700.8000 #### [facility] [address] [place], [address] IG% 0.600 Normal 0.0-0.9 [facility] Comment on above: Result Comment: IG% - Immature Granulocytes (promyelocytes, myelocytes and metamyelocytes) > 1% indicates that a LEFT SHIFT is Present. Performed By: #### L 700.8000 #### [facility] [address] [place], [address] Lymphocytes/100 WBC (Bld) 17.4 % Low 19-41 [facility] Comment on above: Performed By: #### L 700.8000 #### [facility] [address] [place], [address] MCH (RBC) [Entitic mass] 31.9 pg Normal 27.0-32.0 [facility] Comment on above: Performed By: #### L 700.8000 #### [facility] [address] [place], [address] MCHC (RBC) [Mass/Vol] 34.3 g/dL Normal 32-36 [facility] Comment on above: Performed By: #### L 700.8000 #### [facility] [address] [place], [address] MCV (RBC) [Entitic vol] 92.9 fL Normal 81-99 [facility] Comment on above: Performed By: #### L 700.8000 #### [facility] [address] [place], [address] Monocytes/100 WBC (Bld) 5.7 % Normal 0-10 [facility] Comment on above: Performed By: #### L 700.8000 #### [facility] [address] [place], [address] Neutrophils/100 WBC (Bld) 75.2 % High 47-70 [facility] Comment on above: Performed By: #### L 700.8000 #### [facility] [address] [place], [address] Nucleated RBC (Bld) [#/Vol] 0 10*3/uL Normal 0-5 [facility] Comment on above: Performed By: #### L 700.8000 #### [facility] [address] [place], [address] Platelet mean volume (Bld) [Entitic vol] 9.8 fL Normal 6.2-12.0 [facility] Comment on above: Performed By: #### L 700.8000 #### [facility] [address] [place], [address] Platelets (Bld) [#/Vol] 207 10*3/uL Normal 150-450 [facility] Comment on above: Performed By: #### L 700.8000 #### [facility] [address] [place], [address] RBC (Bld) [#/Vol] 3.64 10*6/uL Low 4.2-5.4 [facility] Comment on above: Performed By: #### L 700.8000 #### [facility] [address] [place], [address] RDW SD 43.4 fl Normal 35.1-43.9 [facility] Comment on above: Performed By: #### L 700.8000 #### [facility] [address] [place], [address] WBC (Bld) [#/Vol] 8.9 10*3/uL Normal 4.4-11.0 [facility] Comment on above: Performed By: #### L 700.8000 #### [facility] [address] [place], [address] Eosinophil percentageOrdered By: Namita Gray on 09-19-2024 Eosinophils/100 WBC (Bld) 0.9 % 0-5 [facility] Erythrocyte distribution wid th (RBC) [Ratio]Ordered By: Namita Gray on 09-19-2024 Erythrocyte distribution width (RBC) [Entitic vol] 43.4 fL 35.1-43.9 [facility] Erythrocyte distribution wid th ratioOrdered By: Namita Gray on 09-19-2024 Erythrocyte distribution width (RBC) [Ratio] 12.7 % 11.6-14.6 [facility] Erythrocyte distribution wid th standard deviationOrdered By: Namita Gray on 09-19-2024 Erythrocyte distribution width (RBC) [Ratio] 43.4 fl 35.1-43.9 [facility] Glucose Challenge Gest 1H 50 apollo 09-19-2024 GLU GEST 50g 1H 92 mg/dL Normal 70-140 [facility] Comment on above: Performed By: #### L 700.8000 #### [facility] [address] [place] [address], [address] Glucose measurement at 2 noah rs post-dose gestational glucose tolerance testOrdered By: Namita Gray on 09-19-2024 Glucose [Mass/Vol] 92 mg/dL 70-140 [facility] Hematocrit Auto (Bld) [Volum e fraction]Ordered By: Namita Gray on 09-19-2024 Hematocrit (Bld) [Volume fraction] 33.8 % Low 37-47 [facility] Hemoglobin measurementOrdere d By: Namita Gray on 09-19-2024 Hemoglobin (Bld) [Mass/Vol] 11.6 g/dL Low 12.0-15.0 [facility] Immature granulocytes/100 WB C Auto (Bld)Ordered By: Namita Gray on 09-19-2024 Immature granulocytes/100 WBC (Bld) 0.600 % 0.0-0.9 [facility] Comment on above: IG% - Immature Granu locytes (promyelocytes, myelocytes and metamyelocytes) > 1% indicates that a LEFT SHIFT is Present. Lymphocytes Auto (Unsp spec) [#/Vol]Ordered By: Namita Gray on 09-19-2024 Lymphocytes (Bld) [#/Vol] 1.55 10*3/uL 0.83-4.51 [facility] Lymphocytes/100 WBC Auto (Un sp spec)Ordered By: Namita Gray on 09-19-2024 Lymphocytes/100 WBC (Bld) 17.4 % Low 19-41 [facility] MCV (mean corpuscular volume ) determinationOrdered By: Namita Gray on 09-19-2024 MCV (RBC) [Entitic vol] 92.9 fL 81-99 [facility] Mean corpuscular hemoglobin (MCH) determinationOrdered By: Namita Gray on 09-19-2024 MCH (RBC) [Entitic mass] 31.9 pg 27.0-32.0 [facility] Mean corpuscular hemoglobin concentration (MCHC) determinationOrdered By: Namita Gray on 09-19-2024 MCHC (RBC) [Mass/Vol] 34.3 g/dL 32-36 [facility] Mean platelet volume determi nationOrdered By: Namita Gray on 09-19-2024 Platelet mean volume (Bld) [Entitic vol] 9.8 fL 6.2-12.0 [facility] Monocyte percentageOrdered B y: Namita Gray on 09-19-2024 Monocytes/100 WBC (Bld) 5.7 % 0-10 [facility] Neutrophil percentageOrdered By: Namita Gray on 09-19-2024 Neutrophils/100 WBC (Bld) 75.2 % High 47-70 [facility] No Panel InformationOrdered By: Melinda Bauer on 09-19-2024 HIV (1&2) Antibody Non-Reactive Nonreactive [facility] Comment on above: Non-ReactiveReactive Repeatedly reactive samples must be confirmed according to CDC recommended confirmatory algorithms. The subresults for either HIVAG or AHIV can be used as an aid in the selection of the confirmation algorithm for reactive samples.Send out specimens with Reactive results to [facility] for confirmation.Order the HIV antibody detection and differentiation: #[id number] Nucleated red blood cell per centageOrdered By: Namita Gray on 09-19-2024 Nucleated RBC/100 WBC (Bld) [Ratio] 0 % 0-5 [facility] Platelet countOrdered By: Heron dickey Marina on 09-19-2024 Platelets (Bld) [#/Vol] 207 10*3/uL 150-450 [facility] RBC Auto (Bld) [#/Vol]Ordere d By: Namita Marina on 09-19-2024 RBC (Bld) [#/Vol] 3.64 10*6/uL Low 4.2-5.4 [facility] T. pallidum abOrdered By: Rory Bauer on 09-19-2024 Syphilis Total Antibody Non-Reactive Nonreactive [facility] White blood cell (WBC) count Ordered By: Namitaedmond Gray on 09-19-2024 WBC (Bld) [#/Vol] 8.9 10*3/uL 4.4-11.0 [facility] OB Limited With Biometricson 09-08-2024 OB Limited With Biometrics [facility] Services [address] [place], [place] [address] OB Limited With Biometrics MR#: [id number] Acct: [id number] Name: AIDAN PERAZA Rep #: [id number] : 1995 F 29 From: Hero Robb MD PCP: Dr. Miguel A Pappas MD Status: REG CLI Study: OB Limited With Biometrics Date of Exam: 09/08 Exam# [id number] Ordering Dr: Katelin Lazcano PROCEDURE: OB LIMITED [...] imaging. Presentation is again breech. Reading Location: [id number] CC: Dr. Miguel A Pappas MD; Dr. Katelin Lazcano MD Crystal Finisher: Signed Normal [facility] Dredging Inspector Office Visit Reporton 08-26-2024 Dredging Inspector Office Visit Report [facility] [address], [address] [place] [address] OFFICE VISIT Date of Service: 08/26/24 MR#: [id number] Acct: [id number] Name: AIDAN PERAZA Rep #: [id number] : 1995 Provider: Dr. Namita Holcomb DO Age/Sex: 29/F Location[place] [facility] [place] Status: Signed Intake Vital Signs 01/16/24 18:19 07/29/24 09:13 08/26/24 14:20 08/26/24 14:20 Height 5 ft 9 in 5 ft 9 in 5 ft 9 in 5 ft 9 in Weight: 180 lb BMI 26.6 BP 132/71 H Intake Visit Reasons: 22 wk OB Problem Manager Required: No Is patient in pain?: No Allergies No Known Allergies Allergy (Verified 08/26/24 14:19) Medications ???Medication ???Instructions ???Recorded ???Confirmed ???Type PNV 153-FA 400 mcg-om3 35 mg-dha tab PO 07/28/24 08/26/24 History 25 mg-epa 5 mg-fish oil chew tablet Last Menstrual Period: 05/27/24 Zika: Zika virus screening: Negative : No PFSH [facility] Medical History Laceration with foreign body of left index finger without damage to nail, initial encounter Puncture wound without foreign body of left index finger without damage to nail, initial encounter Laceration of left index finger with foreign body Puncture wound of left index finger Family History Grandmother Cancer Maternal ovarian, colon with metastasis Grandfather Myocardial infarction Maternal-2 CT[address] Social History adopted: No household members: spouse current occupational status: employed current occupation: [employer] current occupational exposures/hazards: No pets and animals: [...] 3-4 times per week duration: 45-60 minutes/day john/church: Buddhist seatbelt use: always do you feel safe at home: Yes 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 Normal [facility] Transvaginal w/Preg USon Transvaginal w/Preg [facility] [address] [place], [place] [id number] Transvaginal w/Preg MR#: [id number] Acct: [id number] Name: AIDAN PERAZA Rep #: [id number] : 1995 F 29 From: Ky ceron MD PCP: Dr. Miguel A Pappas MD Status: [facility] Study: Transvaginal w/Preg US Date of Exam: 08/25/24 Exam# [id number] Ordering Dr: Katelin Lazcano PROCEDURE: TRANSVAGINAL W/PREG [...] 3 mm in transverse dimension. Reading Location: [place] [address] CC: Dr. Miguel A Pappas MD; Dr. Katelin Lazcano MD Crystal Finisher: Signed Normal [facility] OB Anatomy w/ Transvaginalon 08-10-2024 OB Anatomy w/ Transvaginal [facility] [address] [place] [id number] OB Anatomy w/ Transvaginal MR#: [id number] Acct: [id number] Name: AIDAN PERAZA Rep #: [id number] : 1995 F 29 From: Edouard Gonzalez i, DO PCP: Dr. Miguel A Pappas MD Status: REG CLI Study: OB Anatomy w/ Transvaginal Date of Exam: 08/10 Exam# [id number] Ordering Dr: Katelin Lazcano PROCEDURE: ultrasound. REASON [...] A Pappas MD; Dr. Katelin Lazcano MD Crystal Finisher: Signed Normal [facility] HIV - WCHon 08-04-2024 HIV Non-Reactive Normal Nonreactive [facility] Comment on above: Performed By: #### L 3890.6005 #### [facility] [address] [place], [address] Chlamydia/GC MICHAEL aptimaon CHLAMY,NUC ACID Negative Normal Negative [facility] Comment on above: Performed By: #### L 700.8000 #### [facility] [address] [place], [place], [address] GC BY NUC ACID Negative Normal Negative [facility] Comment on above: Result Comment: Perf ormed at: =G - [facility] [address] [id number] Extractions Technician: Kady Solis MD, Phone: [phone] Performed By: #### L 700.8000 #### [facility] [address] [place], [address] L3410.9998on 07-31-2024 [facility] Misc. COMMENT Normal . [facility] Comment on above: Order Comment: [id number] Result Comment: Test Ordered: [id number] RPR, Rfx Qn RPR/Confirm TP RPR Note: CB Non Reactive Reference Range: Non Reactive Performed at: CB - [facility] [address] [id number] Extractions Technician: Darrius Donnelly PhD, Phone: [phone] Performed By: #### L 700.8000, L801.2600 #### [facility] [address] [place], [place], [address] Urine Cultureon 07-31-2024 [facility] Mixed Gram Positive Organisms Martin Count 11,000-25,000 [facility] Mixed contaminants. Submit a new specimen if indicated. Normal [facility] Comment on above: Performed By: #### L 700.8000 #### [facility] [address] [place], [address] L509.8000on 07-30-2024 Syphilis Abs Reactive Normal [facility] Comment on above: Order Comment: Reaso n for Exam: Result Comment: RESU LTS CALLED TO LYNNE ALEXANDER 07/30/24 0819 Liliana Holland. REPORT READ BACK BY SAME. AMENDED REPORT 07/30/24 0823 Syphilis Abs previously reported as: Reactive Performed By: #### L 700.8000 #### [facility] [address] [place], [place], [address] Absolute lymphocyte countOrd ered By: Katelin Lazcano on 07-29-2024 Lymphocytes Auto (Unsp spec) [#/Vol] 1.23 10*3/uL 0.83-4.51 [facility] Absolute neutrophil countOrd ered By: Katelin Lazcano on 07-29-2024 Neutrophils (Bld) [#/Vol] 7.6 10*3/uL 2.0-7.7 [facility] Automated lymphocyte count a s percentage of total leukocytesOrdered By: Katelin Lazcano on 07-29-2024 Lymphocytes/100 WBC Auto (Unsp spec) 13.0 % Low 19-41 [facility] Basophil percentageOrdered B y: Katelin Lazcano on 07-29-2024 Basophils/100 WBC (Bld) 0.5 % 0-1 [facility] C. trachomatis rRNA MICHAEL+prob e Ql (Unsp spec)Ordered By: Katelin Lazcano on 07-29-2024 Chlamydia DNA (MICHAEL) Negative Negative [facility] CBC W/Diff, Automatedon 07-18 Absolute Lymph 1.23 X10 3/uL Normal 0.83-4.51 [facility] Comment on above: Performed By: #### Miguel BUSTILLOS, L100.0100 #### [facility] [address] [place], [address] Absolute Neut 7.6 X10 3/uL Normal 2.0-7.7 [facility] Comment on above: Performed By: #### Miguel BUSTILLOS, L100.0100 #### [facility] [address] [place], [address] Basophils/100 WBC (Bld) 0.5 % Normal 0-1 [facility] Comment on above: Performed By: #### Miguel BUSTILLOS, L100.0100 #### [facility] [address] [place], [address] Eosinophils/100 WBC (Bld) 0.3 % Normal 0-5 [facility] Comment on above: Performed By: #### Miguel BUSTILLOS, L100.0100 #### [facility] [address] [place], [address] Erythrocyte distribution width (RBC) [Ratio] 12.7 % Normal 11.6-14.6 [facility] Comment on above: Performed By: #### Miguel BUSTILLOS, L100.0100 #### [facility] [address] [place], [address] Hematocrit (Bld) [Volume fraction] 36.5 % Low 37-47 [facility] Comment on above: Performed By: #### Miguel BUSTILLOS, L100.0100 #### [facility] [address] [place], [address] Hemoglobin (Bld) [Mass/Vol] 12.1 g/dL Normal 12.0-15.0 [facility] Comment on above: Performed By: #### Miguel BUSTILLOS, L100.0100 #### [facility] [address] [place], [address] IG% 0.400 Normal 0.0-0.9 [facility] Comment on above: Result Comment: IG% - Immature Granulocytes (promyelocytes, myelocytes and metamyelocytes) > 1% indicates that a LEFT SHIFT is Present. Performed By: #### Miguel BUSTILLOS, L100.0100 #### [facility] [address] [place], [address] Lymphocytes/100 WBC (Bld) 13.0 % Low 19-41 [facility] Comment on above: Performed By: #### Miguel BUSTILLOS, L100.0100 #### [facility] [address] [place], [address] MCH (RBC) [Entitic mass] 29.9 pg Normal 27.0-32.0 [facility] Comment on above: Performed By: #### Miguel BUSTILLOS, L100.0100 #### [facility] [address] [place], [address] MCHC (RBC) [Mass/Vol] 33.2 g/dL Normal 32-36 [facility] Comment on above: Performed By: #### Miguel BUSTILLOS, L100.0100 #### [facility] [address] [place], [address] MCV (RBC) [Entitic vol] 90.1 fL Normal 81-99 [facility] Comment on above: Performed By: #### Miguel BUSTILLOS, L100.0100 #### [facility] [address] [place], [address] Monocytes/100 WBC (Bld) 5.5 % Normal 0-10 [facility] Comment on above: Performed By: #### Miguel BUSTILLOS, L100.0100 #### [facility] [address] [place], [address] Neutrophils/100 WBC (Bld) 80.3 % High 47-70 [facility] Comment on above: Performed By: #### Miguel BUSTILLOS, L100.0100 #### [facility] [address] [place], [address] Nucleated RBC (Bld) [#/Vol] 0 10*3/uL Normal 0-5 [facility] Comment on above: Performed By: #### Miguel BUSTILLOS, L100.0100 #### [facility] [address] [place], [address] Platelet mean volume (Bld) [Entitic vol] 9.7 fL Normal 6.2-12.0 [facility] Comment on above: Performed By: #### Miguel BUSTILLOS, L100.0100 #### [facility] [address] [place], [address] Platelets (Bld) [#/Vol] 217 10*3/uL Normal 150-450 [facility] Comment on above: Performed By: #### Miguel BUSTILLOS, L100.0100 #### [facility] [address] [place], [address] RBC (Bld) [#/Vol] 4.05 10*6/uL Low 4.2-5.4 [facility] Comment on above: Performed By: #### Miguel BUSTILLOS, L100.0100 #### [facility] [address] [place], [address] RDW SD 41.4 fl Normal 35.1-43.9 [facility] Comment on above: Performed By: #### B TS, L100.0100 #### [facility] [address] [place], [address] WBC (Bld) [#/Vol] 9.5 10*3/uL Normal 4.4-11.0 [facility] Comment on above: Performed By: #### B TS, L100.0100 #### [facility] [address] [place], [address] Chlamydia trachomatis rRNA d etection by probe and target amplification methodOrdered By: Katelin Lazcano on 07-29-2024 C. trachomatis rRNA MICHAEL+probe Ql (Unsp spec) Negative Negative [facility] Eosinophil percentageOrdered By: Katelin Lazcano on 07-29-2024 Eosinophils/100 WBC (Bld) 0.3 % 0-5 [facility] Erythrocyte distribution wid th ratioOrdered By: Katelin Lazcano on 07-29-2024 Erythrocyte distribution width (RBC) [Ratio] 12.7 % 11.6-14.6 [facility] Erythrocyte distribution wid th standard deviationOrdered By: Katelin Lazcano on 07-29-2024 Erythrocyte distribution width (RBC) [Entitic vol] 41.4 fL 35.1-43.9 [facility] Erythrocyte distribution width (RBC) [Ratio] 41.4 fl 35.1-43.9 [facility] HIV 1 and HIV-2 antibody ass ay with HIV-1 p24 antigen detectionOrdered By: Katelin Lazcano on 07-29-2024 HIV 1+2 Ab+HIV1 p24 Ag IA Ql Non-Reactive Nonreactive [facility] HIV 1+2 Ab+HIV1 p24 Ag IA Ql Ordered By: Katelin Lazcano on 07-29-2024 HIV (1&2) Antibody Non-Reactive Nonreactive [facility] Hematocrit Auto (Bld) [Volum e fraction]Ordered By: Katelin Lazcano on 07-29-2024 Hematocrit (Bld) [Volume fraction] 36.5 % Low 37-47 [facility] Hemoglobin measurementOrdere d By: Katelin Lazcano on 07-29-2024 Hemoglobin (Bld) [Mass/Vol] 12.1 g/dL 12.0-15.0 [facility] Hepatitis B Surface Antigeno n 07-29-2024 HEP B Surf Ag Non-Reactive Normal Nonreactive [facility] Comment on above: Order Comment: Reaso n for Exam: Performed By: #### L 700.8000 #### [facility] [address] [place], [address] Hepatitis B surface antigen detectionOrdered By: Katelin Lazcano on 07-29-2024 Hepatitis B Surface Antigen Non-Reactive Nonreactive [facility] Hepatitis C Antibodyon 07-29 Hepatitis C AB Non-Reactive Normal Nonreactive [facility] Comment on above: Order Comment: Reaso n for Exam: Result Comment: Non Reactive: < 0.8 Equivocal: >/= 0.8 to < 1.0 Reactive: >/= 1.0 The [facility] requires that a reactive/equivocal HCV antibody result be sent out for confirmation. HCV Quant by PCR testing. Performed By: #### L 700.8000, L801.2600 #### [facility] [address] [place], [address] Hepatitis C virus antibody a ssayOrdered By: Katelin Lazcano on 07-29-2024 Hepatitis C Antibody Non-Reactive Nonreactive [facility] Comment on above: Non Reactive: < 0.8 Equivocal: >/= 0.8 to < 1.0 Reactive: >/= 1.0The CDC requires that a reactive/equivocal HCV antibody result be sent out for confirmation. HCV Quant by PCR testing. Immature granulocytes/100 WB C Auto (Bld)Ordered By: Katelin Lazcano on 07-29-2024 Immature granulocytes/100 WBC (Bld) 0.400 % 0.0-0.9 [facility] Comment on above: IG% - Immature Granu locytes (promyelocytes, myelocytes and metamyelocytes) > 1% indicates that a LEFT SHIFT is Present. Lymphocytes Auto (Unsp spec) [#/Vol]Ordered By: Katelin Lazcano on 07-29-2024 Lymphocytes (Bld) [#/Vol] 1.23 10*3/uL 0.83-4.51 [facility] Lymphocytes/100 WBC Auto (Un sp spec)Ordered By: Katelin Lazcano on 07-29-2024 Lymphocytes/100 WBC (Bld) 13.0 % Low 19-41 [facility] MCV (mean corpuscular volume ) determinationOrdered By: Katelin Lazcano on 07-29-2024 MCV (RBC) [Entitic vol] 90.1 fL 81-99 [facility] Mean corpuscular hemoglobin (MCH) determinationOrdered By: Katelin Lazcano on 07-29-2024 MCH (RBC) [Entitic mass] 29.9 pg 27.0-32.0 [facility] Mean corpuscular hemoglobin concentration (MCHC) determinationOrdered By: Katelin Lazcano on 07-29-2024 MCHC (RBC) [Mass/Vol] 33.2 g/dL 32-36 [facility] Mean platelet volume determi nationOrdered By: Katelin Lazcano on 07-29-2024 Platelet mean volume (Bld) [Entitic vol] 9.7 fL 6.2-12.0 [facility] Monocyte percentageOrdered B y: Katelin Lazcano on 07-29-2024 Monocytes/100 WBC (Bld) 5.5 % 0-10 [facility] Neisseria gonorrhoeae nuclei c acid detection by amplified probe techniqueOrdered By: Katelin Lazcano on 07-29-2024 N. gonorrhoeae DNA MICHAEL+probe Ql (Unsp spec) Negative Negative [facility] Comment on above: Performed at: =[facility] [address] [id number] Director: Kady Solis MD, Phone: [phone] Neutrophil percentageOrdered By: Katelin Lazcano on 07-29-2024 Neutrophils/100 WBC (Bld) 80.3 % High 47-70 [facility] Nucleated red blood cell per centageOrdered By: Katelin Lazcano on 07-29-2024 Nucleated RBC/100 WBC (Bld) [Ratio] 0 % 0-5 [facility] Dredging Inspector Office Visit Reporton 07-29-2024 Dredging Inspector Office Visit Report [facility] [address] [place] [id number] OFFICE VISIT Date of Service: 07/29/24 MR#: [id number] Acct: [id number] Name: AIDAN PERAZA Rep #: [id number] : 1995 Provider: Dr. Katelin marie MD Age/Sex: 29/F Location[place] [facility] [place] [facility] [place]: Signed Intake Vital Signs 01/16/24 18:19 07/29/24 09:12 07/29/24 09:13 Height 5 ft 9 in 5 ft 9 in 5 ft 9 in Weight: 174 lb 6 oz BMI 25.7 BP 124/74 H Intake Visit Reasons: US#1 05/25+ CHAVA 12/28/24 Problem Manager Required: No Is patient in pain?: No [...] colon with metastasis Grandfather Myocardial infarction Maternal-2 CT's Social History adopted: No household members: spouse service: No current occupational status: employed current occupation: [employer] current occupational exposures/hazards: No pets and animals: [...] 3-4 times per week duration: 45-60 minutes/day john/church: Buddhist seatbelt use: always do you feel safe at home: Yes 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 Normal [facility] Platelet countOrdered By: Sallie Lazcano on 07-29-2024 Platelets (Bld) [#/Vol] 217 10*3/uL 150-450 [facility] RBC Auto (Bld) [#/Vol]Ordere d By: Katelin Lazcano on 07-29-2024 RBC (Bld) [#/Vol] 4.05 10*6/uL Low 4.2-5.4 [facility] Rubella IgGon 07-29-2024 Rubella IgG Reactive Normal Nonreactive [facility] Comment on above: Order Comment: Reaso n for Exam: Result Comment: Anti body Results Interpretation of Immune Status Non Reactive Presumed Non-Immune Equivocal Equivocal Reactive Presumed Immune Performed By: #### L 700.8000 #### [facility] Laboratory [address] [place], [place], [id number] Rubella immune status IgGOrd ered By: Katelin Lazcano on 07-29-2024 Rubella IgG Antibody Reactive Nonreactive [facility] Comment on above: Antibody Results Int erpretation of Immune Status Non Reactive Presumed Non-Immune Equivocal Equivocal Reactive Presumed Immune Serum Treponema species anti body detectionOrdered By: Katelin Lazcano on 07-29-2024 Treponema sp Ab Ql (S) Reactive [facility] Comment on above: RESULTS CALLED TO TE CRIS KETLER 07/30/24 0819 [place].REPORT READ BACK BY SAME.Previous reported result: Reactive Edited by: DOMINIK on 07/30/24:0823 AMENDED REPORT 07/30/24822 Syphilis Abs previously reported as: Reactive Treponema sp Ab Ql (S)Ordere d By: Katelin Lazcano on 07-29-2024 Syphilis Total Antibody Reactive [facility] Comment on above: RESULTS CALLED TO TE CRIS KETLER 07/30/24 0819 [place].REPORT READ BACK BY SAME.Previous reported result: Reactive Edited by: DOMINIK on 07/30/24:0823 AMENDED REPORT 07/30/24822 Syphilis Abs previously reported as: Reactive Type AND Screenon 07-29-2024 ABO and Rh group Nom (Bld) Blood group A Rh(D) positive Normal [facility] Comment on above: Order Comment: PN Performed By: #### B TS, L100.0100 #### [facility] [address] [place], [place], [address] Urine cultureOrdered By: Reji Lazcano on 07-29-2024 Bacteria identified Cx Nom (U) Positive Abnormal [facility] Bacteria identified Cx Nom (U) Positive Abnormal [facility] White blood cell (WBC) count Ordered By: Katelin Lazcano on 07-29-2024 WBC (Bld) [#/Vol] 9.5 10*3/uL 4.4-11.0 [facility] Transvaginal w/Preg USon Transvaginal w/Preg US [facility] [address] [place] [address] Transvaginal w/Preg US MR#: [id number] Acct: [id number] Name: AIDAN PERAZA Rep #: [id number] : 1995 F 28 From: Tip Madsen MD PCP: Dr. Miguel A Pappas MD Status: REG CLI Study: Transvaginal w/Preg US Date of Exam: 05/25/24 Exam# [id number] Ordering Dr: RAJ SCHMITT [id number] STUDY: FIRST TRIMESTER OBSTETRICAL ULTRASOUND REASON FOR [...] Dr. Miguel A Pappas MD; RAJ SCHMITT Crystal Finisher: Signed Normal [facility] HCG ( test) Qlon Human Chorionic Gonadotropin, Quant 54452 mIU/mL High <4 [facility] Comment on above: hCG levels with Gest ational AgeGestational Age hCG mIU/mL (IU/L)0.2 - 1 week 5 - 501-2 weeks 50 - 5002-3 weeks 100 - 69893-7 weeks 500 - 363553-6 weeks 1000 - 438533-3 weeks 99483 - 100,0006-8 weeks 85801 - 200,0002-3 months 87588 - 100,000 hCG Titer Quant., Serumon HCG QUANT. 94670 mIU/mL High 1-3 [facility] Comment on above: Result Comment: hCG levels with Gestational Age Gestational Age hCG mIU/mL (IU/L) 0.2 - 1 week 5 - 50 1-2 weeks 50 - 500 2-3 weeks 100 - 5000 3-4 weeks 500 - 57609 4-5 weeks 1000 - 18237 5-6 weeks 56017 - 100,000 6-8 weeks 20686 - 200,000 2-3 months 94396 - 100,000 Performed By: #### L 700.8000 #### [facility] Laboratory [facility] [place], [address] hCG Titer Quant., Serumon 11 -11-2024 HCG QUANT. 2206 mIU/mL High 1-3 [facility] Comment on above: Result Comment: hCG levels with Gestational Age Gestational Age hCG mIU/mL (IU/L) 0.2 - 1 week 5 - 50 1-2 weeks 50 - 500 2-3 weeks 100 - 5000 3-4 weeks 500 - 64320 4-5 weeks 1000 - 57470 5-6 weeks 88749 - 100,000 6-8 weeks 16968 - 200,000 2-3 months 63015 - 100,000 Performed By: #### L 700.8000 #### [facility] Laboratory [address] [place], [place], [id number] HCG ( test) Qlon Human Chorionic Gonadotropin, Quant 346 mIU/mL High <4 [facility] Comment on above: hCG levels with Gest ational AgeGestational Age hCG mIU/mL (IU/L)0.2 - 1 week 5 - 501-2 weeks 50 - 5002-3 weeks 100 - 01769-8 weeks 500 - 246551-3 weeks 1000 - 790456-3 weeks 46559 - 100,0006-8 weeks 97944 - 200,0002-3 months 47493 - 100,000 hCG Titer Quant., Serumon HCG QUANT. 346 mIU/mL High 1-3 [facility] Comment on above: Result Comment: hCG levels with Gestational Age Gestational Age hCG mIU/mL (IU/L) 0.2 - 1 week 5 - 50 1-2 weeks 50 - 500 2-3 weeks 100 - 5000 3-4 weeks 500 - 95246 4-5 weeks 1000 - 91911 5-6 weeks 57100 - 100,000 6-8 weeks 26878 - 200,000 2-3 months 28151 - 100,000 Performed By: #### B TS, L100.0100 #### [facility] Laboratory [address] [place], [place], [id number] PROGESTERONE 4317on 04-22-20 24 PROGESTERONE 11.4 ng/mL Normal . [facility] Comment on above: Order Comment: N Result Comment: Foll icular phase 0.1 - 0.9 Luteal phase 1.8 - 23.9 Ovulation phase 0.1 - 12.0 First trimester 11.0 - 44.3 Second trimester 25.4 - 83.3 Third trimester 58.7 - 214.0 Postmenopausal 0.0 - 0.1 Performed at: [address] [id number] Extractions Technician: Darrius Donnelly PhD, Phone: [phone] Performed By: #### L 700.8000, L801.2600 #### [facility] Laboratory [address] [place], [place], [address] hCG Titer Quant., Serumon HCG QUANT. 109 mIU/mL High 1-3 [facility] Comment on above: Result Comment: hCG levels with Gestational Age Gestational Age hCG mIU/mL (IU/L) 0.2 - 1 week 5 - 50 1-2 weeks 50 - 500 2-3 weeks 100 - 5000 3-4 weeks 500 - 47540 4-5 weeks 1000 - 31971 5-6 weeks 02994 - 100,000 6-8 weeks 56383 - 200,000 2-3 months 81178 - 100,000 Performed By: #### L 700.8000, L801.2600 #### [facility] [address] [place], [address] Urine Cultureon 01-19-2024 URC Staphylococcus saprophyticus urine sensitivities are not recommended per CLSI guidelines. Treatment with Nitrofurantoin, Trimethoprim/Sulfa or a Fluroquinolone is suggested. Staphylococcus saprophyticus Martin Count 80,000-100,000 Staphylococcus saprophyticus: REACTION Clindamycin.induced Susc Islt NEG Gentamicin Islt LOPEZ <=0.5 S Nitrofurantoin Islt LOPEZ <=16 S Oxacillin Susc Islt 1 R Tetracycline Islt LOPEZ <=1 S Vancomycin Islt LOPEZ 1 S Normal [facility] Comment on above: Performed By: #### B TS, L100.0100 #### [facility] Laboratory [address] [place], [place], [address] Basic Metabolic Profile (BMP )on 01-16-2024 BUN/CRE 15.6 RATIO Normal 10-20 [facility] Comment on above: Performed By: #### L 100.0100, L500.2500 #### [facility] Laboratory [address] [place], [address] CA,Total 9.6 mg/dL Normal 8.5-10.1 [facility] Comment on above: Performed By: #### L 100.0100, L500.2500 #### [facility] Laboratory [address] [place], [address] Chloride [Moles/Vol] 108 mmol/L High 98-107 [facility] Comment on above: Performed By: #### L 100.0100, L500.2500 #### [facility] Laboratory [address] [place], [address] CO2 [Moles/Vol] 25.0 mmol/L Normal 21.0-32.0 [facility] Comment on above: Performed By: #### L 100.0100, L500.2500 #### [facility] Laboratory [address] [place], [address] Creatinine [Mass/Vol] 0.84 mg/dL Normal 0.55-1.02 [facility] Comment on above: Result Comment: The validity of the calculated GFR GFRAA in patients over 70 years has not been determined. Clinical correlation is essential. Performed By: #### L 100.0100, L500.2500 #### [facility] Laboratory [address] [place], [address] ECRCL 115.03 ml/min Normal [facility] Comment on above: Performed By: #### L 100.0100, L500.2500 #### [facility] [address] [place], [address] EST GFR - AA 106 mL/min Normal >60 [facility] Comment on above: Result Comment: Afri can Namibian GFR Calc Performed By: #### L 100.0100, L500.2500 #### [facility] Laboratory [address] [place], [address] GAP 6 Normal 5-15 [facility] Comment on above: Performed By: #### L 100.0100, L500.2500 #### [facility] Laboratory [address] [place], [address] GFR/1.73 sq M.predicted among non-blacks MDRD (S/P/Bld) [Vol rate/Area] 87 mL/min/{1.73_m2} Normal >60 [facility] Comment on above: Result Comment: Non- GFR Calc Performed By: #### L 100.0100, L500.2500 #### [facility] Laboratory [address] [place], [address] Glucose [Mass/Vol] 84 mg/dL Normal 74-106 [facility] Comment on above: Performed By: #### L 100.0100, L500.2500 #### [facility] [address] [place], [address] Potassium [Moles/Vol] 4.0 mmol/L Normal 3.5-5.1 [facility] Comment on above: Performed By: #### L 100.0100, L500.2500 #### [facility] [address] [place], [address] Sodium [Moles/Vol] 139 mmol/L Normal 136-145 [facility] Comment on above: Performed By: #### L 100.0100, L500.2500 #### [facility] [address] [place], [address] Urea nitrogen [Mass/Vol] 13 mg/dL Normal 7-18 [facility] Comment on above: Performed By: #### L 100.0100, L500.2500 #### [facility] Laboratory [address] [place], [address] CBC W/Diff, Automatedon 08-0 -2023 Absolute Lymph 2.18 X10 3/uL Normal 0.83-4.51 [facility] Comment on above: Performed By: #### L 100.0100, L500.2500 #### [facility] Laboratory [address] [place], [address] Absolute Neut 6.8 X10 3/uL Normal 2.0-7.7 [facility] Comment on above: Performed By: #### L 100.0100, L500.2500 #### [facility] [address] [place], [address] Basophils/100 WBC (Bld) 0.5 % Normal 0-1 [facility] Comment on above: Performed By: #### L 100.0100, L500.2500 #### [facility] [address] [place], [address] Eosinophils/100 WBC (Bld) 0.6 % Normal 0-5 [facility] Comment on above: Performed By: #### L 100.0100, L500.2500 #### [facility] Laboratory [address] [place], [address] Erythrocyte distribution width (RBC) [Ratio] 11.8 % Normal 11.6-14.6 [facility] Comment on above: Performed By: #### L 100.0100, L500.2500 #### [facility] Laboratory [address] [place], [address] Hematocrit (Bld) [Volume fraction] 38.5 % Normal 37-47 [facility] Comment on above: Performed By: #### L 100.0100, L500.2500 #### [facility] [address] [place], [address] Hemoglobin (Bld) [Mass/Vol] 12.8 g/dL Normal 12.0-15.0 [facility] Comment on above: Performed By: #### L 100.0100, L500.2500 #### [facility] [address] [place], [address] IG% 0.300 Normal 0.0-0.9 [facility] Comment on above: Result Comment: IG% - Immature Granulocytes (promyelocytes, myelocytes and metamyelocytes) > 1% indicates that a LEFT SHIFT is Present. Performed By: #### L 100.0100, L500.2500 #### [facility] [address] [place], [address] Lymphocytes/100 WBC (Bld) 21.5 % Normal 19-41 [facility] Comment on above: Performed By: #### L 100.0100, L500.2500 #### [facility] Laboratory [address] [place], [address] MCH (RBC) [Entitic mass] 30.0 pg Normal 27.0-32.0 [facility] Comment on above: Performed By: #### L 100.0100, L500.2500 #### [facility] Laboratory [address] [place], [address] MCHC (RBC) [Mass/Vol] 33.2 g/dL Normal 32-36 [facility] Comment on above: Performed By: #### L 100.0100, L500.2500 #### [facility] Laboratory [address] [place], [address] MCV (RBC) [Entitic vol] 90.4 fL Normal 81-99 [facility] Comment on above: Performed By: #### L 100.0100, L500.2500 #### [facility] Laboratory [address] [place], [address] Monocytes/100 WBC (Bld) 10.4 % High 0-10 [facility] Comment on above: Performed By: #### L 100.0100, L500.2500 #### [facility] Laboratory [address] [place], [address] Neutrophils/100 WBC (Bld) 66.7 % Normal 47-70 [facility] Comment on above: Performed By: #### L 100.0100, L500.2500 #### [facility] Laboratory [address] [place], [address] Nucleated RBC (Bld) [#/Vol] 0 10*3/uL Normal 0-5 [facility] Comment on above: Performed By: #### L 100.0100, L500.2500 #### [facility] Laboratory [address] [place], [address] Platelet mean volume (Bld) [Entitic vol] 9.9 fL Normal 6.2-12.0 [facility] Comment on above: Performed By: #### L 100.0100, L500.2500 #### [facility] Laboratory [address] [place], [address] Platelets (Bld) [#/Vol] 203 10*3/uL Normal 150-450 [facility] Comment on above: Performed By: #### L 100.0100, L500.2500 #### [facility] Laboratory [address] [place], [address] RBC (Bld) [#/Vol] 4.26 10*6/uL Normal 4.2-5.4 [facility] Comment on above: Performed By: #### L 100.0100, L500.2500 #### [facility] [address] [place], [address] RDW SD 38.9 fl Normal 35.1-43.9 [facility] Comment on above: Performed By: #### L 100.0100, L500.2500 #### [facility] Laboratory [address] [place], [address] WBC (Bld) [#/Vol] 10.1 10*3/uL Normal 4.4-11.0 [facility] Comment on above: Performed By: #### L 100.0100, L500.2500 #### [facility] [address] [place], [address] Emergency Department Summary on 01-16-2024 Emergency Department Summary [facility] Medical Records Department [address] [place] [address] Emergency Department Summary 01/16/24 MR#: [id number] Acct: [id number] Name: AIDAN PERAZA Rep #: [id number] : 1995 28 From: Tal Brandon MD [...] similar symptoms: No Recent Illness/Hospitalization: No PFSH [facility] Medical History Laceration with foreign [...] to inspection (more content not included)... Normal [facility] ,Serum,hCG Quali.on 01-16-2024 HCG, SERUM QUAL Negative Normal [facility] Comment on above: Order Comment: if fe male and of childbearing age (8-55 years old) Performed By: #### L 700.6800 #### [facility] Laboratory [address] [place], [address] Urinalysis, Completeon 01-15 BACTERIA 1+ /hpf Normal None Seen [facility] Comment on above: Order Comment: KERRY CTOR TO SPECIFY Performed By: #### B TS, L100.0100 #### [facility] Laboratory [address] [place], [address] RBC 0-5 SEEN Normal 0-5 [facility] Comment on above: Order Comment: KERRY CTOR TO SPECIFY Performed By: #### B TS, L100.0100 #### [facility] Laboratory [address] [place], [address] WBC 5-10 SEEN Normal 0-5 [facility] Comment on above: Order Comment: KERRY CTOR TO SPECIFY Performed By: #### B TS, L100.0100 #### [facility] Laboratory [address] [place], [address] EPI,SQUAMOUS 0-5 SEEN Normal 5-10 [facility] Comment on above: Order Comment: KERRY CTOR TO SPECIFY Performed By: #### B TS, L100.0100 #### [facility] Laboratory [address] [place], [address] Mucus Ql (Urine sed) 0 SEEN Normal [facility] Comment on above: Order Comment: KERRY CTOR TO SPECIFY Performed By: #### B TS, L100.0100 #### [facility] Laboratory [address] [place], [address] Miscellaneous Lab Procedureo n 01-15-2024 [facility] LAB TEST Normal [facility] Comment on above: Order Comment: PN Result Comment: TEST RESULTS LIMITS Pregnenolone, MS 113 ng/dL This test was developed and its performance characteristics determined by [facility]. It has not been cleared or approved by the Food and Drug Administration. Reference Range: Adults: <151 TESTING PERFORMED AT [facility]. ORIGINAL REPORT ON FILE IN LAB CONTAINS ADDITIONAL TEST SITE INFORMATION. Performed By: #### Miguel TS, L100.0100 #### [facility] Laboratory [address] [place], [place], [address] 17-Hydroxyprogesteroneon 17ALPHA OH-PROG 68 ng/dL Normal . [facility] Comment on above: Order Comment: Test( s) 467370-39-KT Progesterone LCMSwas developed and its performance characteristicsdetermined by [facility]. It has not been cleared or approvedby the Food and Drug Administration.NN Result Comment: Adul t Female Follicular 15 - 70 Luteal 35 - 290 Performed By: #### Miguel BUSTILLOS, L100.0100 #### [facility] [address] [place], [address] PROGESTERONE 4317on 01-11-20 24 PROGESTERONE 0.2 ng/mL Normal . [facility] Comment on above: Order Comment: Test( s) 732838-87-GL Progesterone LCMSwas developed and its performance characteristicsdetermined by [facility]. It has not been cleared or approvedby the Food and Drug Administration.NN Result Comment: Foll icular phase 0.1 - 0.9 Luteal phase 1.8 - 23.9 Ovulation phase 0.1 - 12.0 First trimester 11.0 - 44.3 Second trimester 25.4 - 83.3 Third trimester 58.7 - 214.0 Postmenopausal 0.0 - 0.1 Performed at: [facility] Lab[address] [id number] Extractions Technician: Damion Jones MD, Phone: [phone] Performed at: [address] [id number] Extractions Technician: Darrius Donnelly PhD, Phone: [phone] Performed By: #### B TS, L100.0100 #### [facility] Laboratory [address] [facility] [place], [place], [address] Androstenedioneon 01-10-2024 ANDROSTENEDIONE 202 ng/dL Normal 41-262 [facility] Comment on above: Order Comment: Test( s) 684458-Gfgcgpsxakpiaco LCMSwas developed and its performance characteristicsdetermined by [facility]. It has not been cleared or approvedby the Food and Drug Administration. Performed By: #### B TS, L100.0100 #### [facility] [address] [facility] [address] [place], [place], [address] Insulin Levelon 01-10-2024 INSULIN,FASTING 7.8 uIU/mL Normal 2.6-24.9 [facility] Comment on above: Order Comment: Test( s) 235717-Mwlftnlznyzwwlc LCMSwas developed and its performance characteristicsdetermined by [facility]. It has not been cleared or approvedby the Food and Drug Administration. Performed By: #### B TS, L100.0100 #### [facility] [address] [facility] [address] [place], [place], [address] Testosterone Freeon 01-10-20 24 TESTMCLAREN THUMB REGION FREE 2.6 pg/mL Normal 0.0-4.2 [facility] Comment on above: Order Comment: Test( s) 824088-Hpyxsjrdmauoemm LCMSwas developed and its performance characteristicsdetermined by [facility]. It has not been cleared or approvedby the Food and Drug Administration. Performed By: #### Miguel BUSTILLOS, L100.0100 #### [facility] [address] [place], [address] Thyroid Peroxidase ABon 07-2 THYR PEROX AB 10 IU/mL Normal 0-34 [facility] Comment on above: Order Comment: Test( s) 483459-Ltirgcenxnjppdt LCMSwas developed and its performance characteristicsdetermined by [facility]. It has not been cleared or approvedby the Food and Drug Administration. Result Comment: Perf ormed at: [address] [id number] Extractions Technician: Damion Jones MD, Phone: [phone] Performed at: [address] [id number] Extractions Technician: Darrius Donnelly PhD, Phone: [phone] Performed By: #### Miguel BUSTILLOS, L100.0100 #### [facility] Laboratory [address] [place], [address] Basic Metabolic Profile (BMP )on 01-07-2024 BUN/CRE 14.8 RATIO Normal 10-20 [facility] Comment on above: Performed By: #### Miguel BUSTILLOS, L100.0100 #### [facility] Laboratory [address] [place], [address] CA,Total 9.2 mg/dL Normal 8.5-10.1 [facility] Comment on above: Performed By: #### Miguel BUSTILLOS, L100.0100 #### [facility] [address] [place], [address] Chloride [Moles/Vol] 105 mmol/L Normal 98-107 [facility] Comment on above: Performed By: #### Miguel BUSTILLOS, L100.0100 #### [facility] [address] [place], [address] CO2 [Moles/Vol] 25.0 mmol/L Normal 21.0-32.0 [facility] Comment on above: Performed By: #### Miguel BUSTILLOS, L100.0100 #### [facility] [address] [place], [address] Creatinine [Mass/Vol] 0.95 mg/dL Normal 0.55-1.02 [facility] Comment on above: Result Comment: The validity of the calculated GFR GFRAA in patients over 70 years has not been determined. Clinical correlation is essential. Performed By: #### Miguel BUSTILLOS, L100.0100 #### [facility] [address] [place], [address] EST GFR - AA 91 mL/min Normal >60 [facility] Comment on above: Result Comment: Afri can [place] GFR Calc Performed By: #### Miguel BUSTILLOS, L100.0100 #### [facility] [address] [place], [address] GAP 7 Normal 5-15 [facility] Comment on above: Performed By: #### Miguel BUSTILLOS, L100.0100 #### [facility] [address] [place], [address] GFR/1.73 sq M.predicted among non-blacks MDRD (S/P/Bld) [Vol rate/Area] 76 mL/min/{1.73_m2} Normal >60 [facility] Comment on above: Result Comment: Non- GFR Calc Performed By: #### Miguel BUSTILLOS, L100.0100 #### [facility] [address] [place], [address] Glucose [Mass/Vol] 96 mg/dL Normal 74-106 [facility] Comment on above: Performed By: #### Miguel BUSTILLOS, L100.0100 #### [facility] [address] [place], [address] Potassium [Moles/Vol] 3.9 mmol/L Normal 3.5-5.1 [facility] Comment on above: Performed By: #### Miguel BUSTILLOS, L100.0100 #### [facility] [address] [place], [address] Sodium [Moles/Vol] 137 mmol/L Normal 136-145 [facility] Comment on above: Performed By: #### Miguel BUSTILLOS, L100.0100 #### [facility] [address] [place], [address] Urea nitrogen [Mass/Vol] 14 mg/dL Normal 7-18 [facility] Comment on above: Performed By: #### Miguel BUSTILLOS, L100.0100 #### [facility] [address] [place], [address] CORTISOL SERUMon 01-07-2024 CORTISOL 21.10 ug/dL Normal 3.44-22.45 [facility] Comment on above: Result Comment: Adul t (AM) 5.27 - 22.45 ug/dL Adult (PM) 3.44 - 16.76 ug/dL Please note revised CORTISOL reference range effective 2019. Performed By: #### Miguel BUSTILLOS, L100.0100 #### [facility] [address] [place], [address] Lipid Profileon 01-07-2024 Cholesterol [Mass/Vol] 196 mg/dL Normal 200 [facility] Comment on above: Result Comment: <200 mg/dL Desirable 200-240 mg/dL Borderline >240 mg/dL High Risk Performed By: #### Miguel BUSTILLOS, L100.0100 #### [facility] [address] [place], [address] Cholesterol in HDL [Mass/Vol] 102 mg/dL Normal [facility] Comment on above: Result Comment: The drugs N-Acetylcysteine and Metamizole may falsely depress this assay. Reference Range HDL <40 mg/dL Low HDL Cholesterol HDL >or= 60 mg/dL High HDL Cholesterol Performed By: #### Miguel BUSTILLOS, L100.0100 #### [facility] [address] [place], [address] Cholesterol in LDL [Mass/Vol] 85 mg/dL Normal 0-130 [facility] Comment on above: Performed By: #### B TS, L100.0100 #### [facility] [address] [place], [address] Cholesterol in VLDL [Mass/Vol] 9 mg/dL Normal 5-40 [facility] Comment on above: Performed By: #### B TS, L100.0100 #### [facility] [address] [place], [address] Triglyceride [Mass/Vol] 45 mg/dL Normal [facility] Comment on above: Result Comment: The drugs N-Acetylcysteine and Metamizole may falsely depress this assay. Serum Triglycerides Reference Interval Normal <150 mg/dL Borderline high 150 - 199 mg/dL High 200 - 499 mg/dL Very High > or = 500 mg/dL Performed By: #### B TS, L100.0100 #### [facility] [address] [place], [address] Clinical Summary: Cj sanders 07-18-2021 25 [employer] Invalid Interpretation Code [facility] Work Phone: Clinical Summary: Scanned Az story Summaryon 07-18-2021 brother(s) of patient alive or Unknown Invalid Interpretation Code [facility] Work Phone: Data entered by patient exercise frequency 7 days per week Invalid Interpretation Code [facility] Work Phone: Data entered by patient exercise type walking Invalid Interpretation Code [facility] Work Phone: data entered by patient, alcohol (ethanol or ETOH) use No Invalid Interpretation Code [facility] Work Phone: data entered by patient, drug (of abuse) use No Invalid Interpretation Code [facility] Work Phone: data entered by patient, Employer Name Employed Invalid Interpretation Code [facility] Work Phone: data entered by patient, exercise history Yes Invalid Interpretation Code [facility] Work Phone: Data entered by patient, problem list Patient Denies Medical Problems or Conditions Invalid Interpretation Code [facility] Work Phone: data entered by patient, social history, current smoker never smoker Invalid Interpretation Code [facility] Work Phone: data entered by patient, social history, marital status Invalid Interpretation Code [facility] Work Phone: Denies Surgical History Patient Denies Past Surgical History Invalid Interpretation Code [facility] Work Phone: father of patient is alive or Alive Invalid Interpretation Code [facility] Work Phone: Housing Type: apartment, house, snf, trailer, none House Invalid Interpretation Code [facility] Work Phone: housing unit size (asthma environmental history, housing) (from single family to don't know) 1 Floor Invalid Interpretation Code [facility] Work Phone: mother of patient is alive or Alive Invalid Interpretation Code [facility] Work Phone: Number of dependent children No Invalid Interpretation Code [facility] Work Phone: sister of patient(s) alive or Unknown Invalid Interpretation Code [facility] Work Phone: Office Visit: Workers Comp - Consult, Rm:on 07-18-2021 NEGATED: Highlighted rowTobacco smoking status Tobacco smoking status Invalid Interpretation Code [facility] Work Phone: XR [...] PM Ordering Provider: SVITLANA HAND [facility] ([place]) Vital Signs Date Time Vital Sign Value Performing Clinician Facility 12-28-2024 11:33-0400 Body height 175.[address] Miguel A Pappas MD Work Phone: [facility] 12-28-2024 11:33-0400 Body mass index (BMI) [Ratio] 28.1 kg/m2 Dr. Miguel A Pappas MD Work Phone: [facility] 12-28-2024 11:33-0400 Body weight 86.[address] Miguel A Pappas MD Work Phone: [facility] 12-28-2024 11:33-0400 Diastolic blood pressure 74 mm[Hg] Dr. Miguel A Pappas MD Work Phone: [facility] 12-28-2024 11:33-0400 Systolic blood pressure 113 mm[Hg] Dr. Miguel A Pappas MD Work Phone: [facility] 12-25-2024 11:44-0400 Body height 175.[address] Miguel A Pappas MD Work Phone: [facility] 12-25-2024 11:44-0400 Body mass index (BMI) [Ratio] 28 kg/m2 Dr. Miguel A Pappas MD Work Phone: [facility] 12-25-2024 11:44-0400 Body weight 86.[address] Miguel A Pappas MD Work Phone: 8(346)147-329325 [place] [address] 12-25-2024 11:44-0400 Diastolic blood pressure 69 mm[Hg] Dr. Miguel A Pappas MD Work Phone: 7(480)369-875925 [place] [address] 12-25-2024 11:44-0400 Systolic blood pressure 111 mm[Hg] Dr. Miguel A Pappas MD Work Phone: 5(161)062-876525 [place] [address] 12-17-2024 13:12-0400 Body height 175.[address] Miguel A Pappas MD Work Phone: 4(402)127-732325 [place] [address] 12-17-2024 13:12-0400 Body mass index (BMI) [Ratio] 28.3 kg/m2 Dr. Miguel A Pappas MD Work Phone: 4(452)986-801325 [place] [address] 12-17-2024 13:12-0400 Body weight 87.[address] Miguel A Pappas MD Work Phone: [facility] 12-17-2024 13:12-0400 Diastolic blood pressure 73 mm[Hg] Dr. Miguel A Pappas MD Work Phone: 2(671)832-514025 [place] [address] 12-17-2024 13:12-0400 Systolic blood pressure 123 mm[Hg] Dr. Miguel A Pappas MD Work Phone: 5(138)920-548625 [place] [address] 12-08-2024 15:44-0400 Body height 175.[address] Miguel A Pappas MD Work Phone: 3(177)543-462225 [place] [address] 12-08-2024 15:43-0400 Body mass index (BMI) [Ratio] 28.2 kg/m2 Dr. Miguel A Pappas MD Work Phone: [facility] 12-08-2024 15:43-0400 Body weight 86.[address] Miguel A Pappas MD Work Phone: [facility] 12-08-2024 15:43-0400 Diastolic blood pressure 72 mm[Hg] Dr. Miguel A Pappas MD Work Phone: [facility] 12-08-2024 15:43-0400 Systolic blood pressure 118 mm[Hg] Dr. Miguel A Pappas MD Work Phone: [facility] 11-30-2024 14:58-0400 Body height 175.[address] Miguel A Pappas MD Work Phone: [facility] 11-30-2024 14:58-0400 Body mass index (BMI) [Ratio] 28.2 kg/m2 Dr. Miguel A Pappas MD Work Phone: [facility] 11-30-2024 14:58-0400 Body weight 86.[address] Miguel A Pappas MD Work Phone: [facility] 11-30-2024 14:58-0400 Diastolic blood pressure 70 mm[Hg] Dr. Miguel A Pappas MD Work Phone: [facility] 11-30-2024 14:58-0400 Systolic blood pressure 122 mm[Hg] Dr. Miguel A Pappas MD Work Phone: [facility] 11-20-2024 08:08-0400 Body height 175.[address] Miguel A Pappas MD Work Phone: [facility] 11-20-2024 08:08-0400 Body mass index (BMI) [Ratio] 28 kg/m2 Dr. Miguel A Pappas MD Work Phone: [facility] 11-20-2024 08:08-0400 Body weight 85.[address] Miguel A Pappas MD Work Phone: [facility] 11-20-2024 08:08-0400 Diastolic blood pressure 68 mm[Hg] Dr. Miguel A Pappas MD Work Phone: [facility] 11-20-2024 08:08-0400 Systolic blood pressure 122 mm[Hg] Dr. Miguel A Pappas MD Work Phone: [facility] 11-06-2024 11:36-0400 Body mass index (BMI) [Ratio] 27.8 kg/m2 Dr. Miguel A Pappas MD Work Phone: 5(218)072-419725 [place] [address] 11-06-2024 11:36-0400 Body weight 85.[address] Miguel A Pappas MD Work Phone: 7(864)602-755935 [address] 11-06-2024 11:36-0400 Diastolic blood pressure 74 mm[Hg] Dr. Miguel A Pappas MD Work Phone: 3(007)793-371135 [address] 11-06-2024 11:36-0400 Systolic blood pressure 130 mm[Hg] Dr. Miguel A Pappas MD Work Phone: 1(722)452-833035 [address] 10-21-2024 08:19-0400 Body mass index (BMI) [Ratio] 27.5 kg/m2 Dr. Miguel A Pappas MD Work Phone: 3(831)486-354925 [place] [address] 10-21-2024 08:19-0400 Body weight 84.[address] Miguel A Pappas MD Work Phone: [facility] 10-21-2024 08:19-0400 Diastolic blood pressure 68 mm[Hg] Dr. Miguel A Pappas MD Work Phone: [facility] 10-21-2024 08:19-0400 Systolic blood pressure 112 mm[Hg] Dr. Miguel A Pappas MD Work Phone: 9(247)376-384425 [place] [address] 09-24-2024 11:35-0400 Body height 175.[address] Miguel A Pappas MD Work Phone: 3(517)325-814425 [place] [address] 09-24-2024 11:35-0400 Body mass index (BMI) [Ratio] 26.9 kg/m2 Dr. Miguel A Pappas MD Work Phone: 0(749)096-627919 [place] [address] 09-24-2024 11:35-0400 Body weight 82.[address] Miguel A Pappas MD Work Phone: 8(453)973-362419 [place] [address] 09-24-2024 11:35-0400 Diastolic blood pressure 76 mm[Hg] Dr. Miguel A Pappas MD Work Phone: 6(602)785-002119 [place] [address] 09-24-2024 11:35-0400 Systolic blood pressure 128 mm[Hg] Dr. Miguel A Pappas MD Work Phone: 3(631)906-338619 [place] [address] 08-26-2024 14:20-0400 Body height 175.[address] Miguel A Pappas MD Work Phone: 8(498)930-031819 [place] [address] 08-26-2024 14:20-0400 Body mass index (BMI) [Ratio] 26.6 kg/m2 Dr. Miguel A Pappas MD Work Phone: 0(891)052-116219 [place] [address] 08-26-2024 14:20-0400 Body weight 81.[address] Miguel A Pappas MD Work Phone: 2(097)395-952819 [place] [address] 08-26-2024 14:20-0400 Diastolic blood pressure 71 mm[Hg] Dr. Miguel A Pappas MD Work Phone: 9(198)165-695919 [place] [address] 08-26-2024 14:20-0400 Systolic blood pressure 132 mm[Hg] Dr. Miguel A Pappas MD Work Phone: 1(811)376-835519 [place] [address] 07-29-2024 09:13-0500 Body height 175.[address] Miguel A Pappas MD Work Phone: 1(616)966-793419 [place] [address] 07-29-2024 09:12-0500 Body mass index (BMI) [Ratio] 25.7 kg/m2 Dr. Miguel A Pappas MD Work Phone: 2(381)139-899019 [place] [address] 07-29-2024 09:12-0500 Body weight 79.[address] Miguel A Pappas MD Work Phone: 0(679)710-032019 [place] [address] 07-29-2024 09:12-0500 Diastolic blood pressure 74 mm[Hg] Dr. Miguel A Pappas MD Work Phone: [facility] 07-29-2024 09:12-050 Systolic blood pressure 124 mm[Hg] Dr. Miguel A Pappas MD Work Phone: [facility] NEGATED: Highlighted [id number] 11:19-0500 Body height 175.26 cm Ronda Jackson RN [facility] Work Phone: NEGATED: Highlighted [id number] 11:19-050 Body height 175 cm Ronda Jackson RN [facility] Work Phone: NEGATED: Highlighted [id number] 11:19-0500 Body mass index (BMI) [Ratio] 22.38 kg/m2 Ronda Jackson RN [facility] Work Phone: NEGATED: Highlighted [id number] 11:19-0500 Body weight 68.49 kg Ronda Jackson RN [facility] Work Phone: NEGATED: Highlighted [id number] 11:19-0500 Body weight 69 kg Ronda Jackson RN [facility] Work Phone: Encounters Encounter Date Encounter Type Care Provider Facility Start: 01-04-2025 ambulatory Namita Mcgraw cility:[facility] Start: 12-28-2024 End: 12-28-[address] Namita Garcia DO -[facility] Work Phone: Start: 12-28-2024 End: 12-28-[address] Miguel A Pappas MD Work Phone: -[facility] Start: 12-25-2024 End: 12-25-[address] Katelin Lazcano MD -[facility] Work Phone: Start: 12-25-2024 End: 12-25-[address] Miguel A Pappas MD Work Phone: -[facility] Start: 12-23-2024 End: 12-23-[address] Miguel A Pappas MD Work Phone: -Ultrasound [facility] Start: 12-23-2024 End: 12-23-[address] Katelin Lazcano MD -Ultrasound [facility] Work Phone: Start: 12-23-2024 End: 12-23-2024 ambulatory Miguel A Pappas Facility:[facility] Start: 12-17-2024 End: 12-17-[address] Katelin Lazcano MD -[facility] Work Phone: Start: 12-17-2024 End: 12-17-[address] Miguel A Pappas MD Work Phone: -[facility] Start: 12-08-2024 End: 12-08-2024 Patient encounter procedure Melinda MADDEN -[facility] Work Phone: Start: 12-08-2024 End: 12-08-[address] Miguel A Pappas MD Work Phone: [facility] Work Phone: Start: 11-30-2024 End: 11-30-[address] Miguel A Pappas MD Work Phone: [facility] Work Phone: Start: 11-30-2024 End: 11-30-2024 Patient encounter procedure Gaby Reynolds CNM -[facility] Work Phone: Start: 11-30-2024 End: 11-30-2024 Patient encounter procedure aGby Reynolds CNM -[facility] Work Phone: Start: 11-30-2024 End: 11-30-[address] Miguel A Pappas MD Work Phone: [facility] Work Phone: Start: 11-30-2024 End: 11-30-2024 ambulatory Miguel A Pappas Facility:[facility] Start: 11-20-2024 End: 11-20-2024 Patient encounter procedure Gaby Reynolds [facility] Work Phone: Start: 11-20-2024 End: 11-20-[address] Miguel A Pappas MD Work Phone: [facility] Work Phone: Start: 11-06-2024 End: 11-06-2024 Patient encounter procedure Gaby Reynolds [facility] Work Phone: Start: 11-06-2024 End: 11-06-2024 ambulatory Miguel A Elyse Facility:[facility] Start: 10-21-2024 End: 10-21-2024 Patient encounter procedure Melinda Bauer NP-C -[facility] Work Phone: Start: 10-21-2024 End: 10-21-2024 ambulatory Miguel A Pappas Facility:[facility] Start: 10-09-2024 ambulatory Alanna Davis y:[facility] Start: 10-06-2024 End: 10-06-[address] Miguel A Pappas MD Work Phone: [facility] Work Phone: Start: 10-06-2024 End: 10-06-2024 Patient encounter procedure Melinda Bauer NP-Damaso -Ultrasound, [facility] Work Phone: Start: 10-06-2024 End: 10-06-2024 ambulatory Miguel A Pappas Facility:[facility] Start: 09-24-2024 End: 09-24-2024 Patient encounter procedure Melinda MADDEN -[facility] Work Phone: Start: 09-24-2024 End: 09-24-2024 ambulatory Miguel A Pappas Facility:[facility] Start: 09-19-2024 End: 09-19-[address] Miguel A Pappas MD Work Phone: [facility] Work Phone: Start: 09-19-2024 End: 09-19-[address] Namita Gacria DO [facility] Work Phone: Start: 09-19-2024 End: 09-19-2024 ambulatory Namita Garcia Facility:[facility] Start: 09-08-2024 End: 09-08-[address] Miguel A Pappas MD Work Phone: [facility] Work Phone: Start: 09-08-2024 End: 09-08-[address] Katelin Lazcano MD -Ultrasound, [facility] Work Phone: Start: 09-08-2024 End: 09-08-2024 ambulatory [place] Facility:[facility] Start: 08-26-2024 End: 08-26-[address] Namita Garcia DO -[facility] Work Phone: Start: 08-26-2024 End: 08-26-2024 ambulatory Namita Garcia Facility:[facility] Start: 08-25-2024 End: 08-25-[address] Miguel A Pappas MD Work Phone: [facility] Work Phone: Start: 08-25-2024 End: 08-25-[address] Katelin Lazcano MD -Ultrasound, [facility] Work Phone: Start: 08-25-2024 End: 08-25-2024 ambulatory Katelin Lazcano Facility:[facility] Start: 08-10-2024 End: 08-10-[address] Miguel A Pappas MD Work Phone: [facility] Work Phone: Start: 08-10-2024 End: 08-10-[address] Katelin Lazcano MD -Ultrasound, [facility] Work Phone: Start: 08-10-2024 End: 08-10-2024 ambulatory Katelin Lazcano Facility:[facility] Start: 07-29-2024 End: 07-29-[address] Katelin Lazcano MD -[facility] Work Phone: Start: 07-29-2024 End: 07-29-2024 ambulatory Miguel A Pappas Facility:[facility] Start: 07-29-2024 End: 07-29-2024 ambulatory Katelin Lazcano Facility:[facility] Start: 05-25-2024 End: 05-25-[address] Miguel A Pappas MD Work Phone: -Ultrasound, [facility] Work Phone: Start: 05-25-2024 End: 05-25-2024 [facility] Start: 05-17-2024 ambulatory [facility] Facility:[facility] Start: 05-04-2024 End: 05-16-2024 ambulatory [facility] Facility:[facility] Start: 05-04-2024 End: 05-16-[address] Miguel A Pappas MD Work Phone: -Laboratory Work Phone: Start: 04-23-2024 End: 04-23-[address] Miguel A Pappas MD Work Phone: -Laboratory [place] Work Phone: Start: 04-23-2024 End: 04-23-2024 ambulatory [facility] Facility:[facility] Start: 04-20-2024 End: 04-20-2024 ambulatory [facility] Facility:[facility] Start: 01-16-2024 End: 01-16-2024 Emergency department patient visit Tal Brandon Facility:[facility] Start: 01-07-2024 End: 01-07-2024 ambulatory [facility] Facility:[facility] Procedures Date Procedure Procedure Detail Performing Clinician [...] 07-18-2021 End: 07-18-2021 Patient encounter procedure Appointment [facility] Work Phone: Start: 07-18-2021 End: 07-18-2021 [place] fingr minimum 2 views XR FINGER 2+VWS 2ND DIGIT-LT [facility] Work Phone: CBC W Auto Different ial panel - Blood [facility] Measurement of gluco se 2 hours after glucose challenge for glucose tolerance test [facility] Serologic 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 [facility] Streptococcus agalac tiae [Presence] in Unspecified specimen by Organism specific culture [facility] Ultrasound scan for growth [facility] Ultrasound scan for growth [facility] Payers Date Payer Category Payer Self-pay 2024 Unknown [id number] Unknown [id number] Unknown [id number] 2.16.8 40.1.106623.3.579.2.462 Unknown [id number] 2.16.8 40.1.648556.3.579.2.462 Unknown [id number] 2.16.8 40.1.185282.3.579.2.462 Unknown [id number] 2.16.8 40.1.358954.3.579.2.462 Unknown [id number] 2.16.8 40.1.189874.3.579.2.462 Unknown [id number] 2.16.8 40.1.862353.3.579.2.462 Unknown [id number] 2.16.8 40.1.689800.3.579.2.462 Unknown [id number] 2.16.8 40.1.304314.3.579.2.462 Unknown [id number] 2.16.8 40.1.997475.3.579.2.462 Unknown [id number] 2.16.8 40.1.154068.3.579.2.462 Unknown [id number] 2.16.8 40.1.215182.3.579.2.462 Unknown [id number] 2.16.8 40.1.449454.3.579.2.462 Unknown [id number] 2.16.8 40.1.244945.3.579.2.462 Unknown [id number] 2.16.8 40.1.592034.3.579.2.462 Unknown [id number] 2.16.8 40.1.130129.3.579.2.462 Unknown [id number] 2.16.8 40.1.742039.3.579.2.462 Unknown [id number] 2.16.8 40.1.174165.3.579.2.462 Unknown [id number] 2.16.8 40.1.582150.3.579.2.462 Unknown [id number] 2.16.8 40.1.129249.3.579.2.462 Unknown [id number] 2.16.8 40.1.487582.3.579.2.462 Unknown [id number] 2.16.8 40.1.690108.3.579.2.462 Unknown [id number] 2.16.8 40.1.157625.3.579.2.462 Unknown [id number] 2.16.8 40.1.646720.3.579.2.462 Unknown [id number] 2.16.8 40.1.326476.3.579.2.462 Unknown [id number] 2.16.8 40.1.698455.3.579.2.462 Unknown [id number] 2.16.8 40.1.116940.3.579.2.462 Unknown [id number] 2.16.8 40.1.048859.3.579.2.462 Unknown [id number] 2.16.8 40.1.062532.3.579.2.462 Social History Date Type Detail Facility Start: 07-28-2024 End: 07-28-2024 Tobacco smoking status NHIS Never smoked tobacco (finding) [facility] Start: 08-21-2024 End: 10-12-2024 Sex Female (finding) [facility] Start: 1995 Sex Assigned At Female [facility] NEGATED: Highlighted rowStart: 07-18-2021 End: 07-18-2021 Alcohol use Alcohol use [facility] Work Phone: NEGATED: Highlighted rowStart: 07-18-2021 End: 07-18-2021 Details of drug misuse behavior Details of drug misuse behavior [facility] Work Phone: NEGATED: Highlighted rowStart: 07-18-2021 End: 07-18-2021 How many days of moderate to strenuous exercise, like a brisk walk, did you do in the last 7 days? How many days of moderate to strenuous exercise, like a brisk walk, did you do in the last 7 days? [facility] Work Phone: NEGATED: Highlighted rowStart: 07-18-2021 End: 07-18-2021 Assertion Never smoker [facility] Work Phone: Clinical Notes 07-29-2024 to 12-24-2024 Note Date & Type Note Facility 12-24-2024 Radiology Diagnostic study note [facility] Imaging Services [address] [place], [place] [address] OB Limited With Biometrics MR#: [id number] Acct: [id number] Name: AIDAN PERAZA Rep #: [id number] : 1995 F 29 From: Brett Pina MD PCP: Dr. Miguel A Pappas MD Status: REG CLI Study:OB Limited With Biometrics Date of Exam : 12/23/24 Exam# [id number] Ordering Dr: Katelin Tidwell MD PROCEDURE: OB [...] within lower limits of normal. Reading Location: [facility] CC: Dr. Miguel A Pappas MD; Dr. Katelin Lazcano MD ~ Crystal Finisher: Signed [facility] 12-17-2024 Progress note [facility] 11-30-2024 Progress note [facility] 11-30-2024 Progress note Note Date/Time November 30, 2024 3:12pm [facility] [address], [address] [place] [address] OFFICE VISIT Date of Service: 11/30/24 MR#: [id number] Acct: [id number] Name: AIDAN PERAZA Rep #: [id number] : 1995 Provider: MINDY Reynolds Age/Sex: 29/F Location[place] [facility] [place] Status: Signed Intake Vital Signs 11/06/24 11:36 11/20/24 08:08 11/30/24 14:58 Height 5 ft 9 in 5 ft 9 in 5 ft 9 in Weight: 191 lb 6 oz BMI 28.2 BP 122/70 H Intake Visit Reasons: 36wk ob Chief Complaint: 36wk OB Problem Manager Required: No Is patient in pain?: No [...] colon with metastasis Grandfather Myocardial infarction Maternal-2 CT's Social History adopted: No household members: spouse current occupational status: employed current occupation: [employer] current occupational exposures/hazards: No pets and animals: [...] 3-4 times per week duration: 45-60 minutes/day john/church: Buddhist seatbelt use: always do you feel safe at home: Yes 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 Kelvin (7) : Status: Acute Qualifiers: Weeks [...] fallen in the past year?: No 11/30/24 9305 <Electronically signed by Gaby ivey CNM> Date _ Gaby Blancas Signature: Date (if applicable) CC: ~ [facility] [employer] [employer] Work Phone: 1(888) 831-607906-06-2025 [facility] [address] [place] [address], [address] [place] [address] OFFICE VISIT Date of Service: 11/20/24 MR#: [id number] Acct: [id number] Name: AIDAN PERAZA Rep #: [id number] : 1995 Provider: MINDY Reynolds Age/Sex: 29/F Location: [facility] [place] Status: Signed Intake Vital Signs 10/21/24 08:19 11/06/24 11:36 11/20/24 08:08 Height 5 ft 9 in 5 ft 9 in 5 ft 9 in Weight: 189 lb 8 oz BMI 28.0 BP 122/68 H Intake Visit Reasons: 34 wk ob Chief Complaint: 34 Week OB Problem Manager Required: No Is patient in pain?: No Allergies No Known Allergies Allergy (Verified 11/20/24 08:11) Medications ?Medication ?Instructions ?Recorded ?Confirmed ?Type PNV 153-FA 400 mcg-om3 35 mg-dha tab PO 07/28/2411/20 History 25 mg-epa 5 mg-fish oil chew tablet Last Menstrual Period: 05/27/24 Zika: Zika virus screening: Negative : No [facility] Medical History Laceration with foreign body of left index finger without damage to nail, initial encounter Puncture wound without foreign body of left index finger without damage to nail,initial encounter Laceration of left index finger with foreign body Puncture wound of left index finger Family History Grandmother Cancer Maternal ovarian, colon with metastasis Grandfather Myocardial infarction Maternal-2 CT's Social History adopted: No household members: spouse current occupational status: employed current occupation: [employer] current occupational exposures/hazards: No pets and animals: [...] 3-4 times per week duration: 45-60 minutes/day john/church: Buddhist seatbelt use: always do you feel safe at home: Yes 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 Kelvin (3) FH: Down [...] Cosigner Signature: Date (if applicable) CC: ~ [facility]04-23-2025 Radiology Diagnostic study note [facility] Imaging Services [address] [place], [place] [address] OB Limited With Biometrics MR#: [id number] Acct: [id number] Name: AIDAN PERAZA Rep #: [id number] : 1995 F 29 From: Brett Pina MD PCP: Dr. Miguel A Pappas MD Status: REG CLI Study:OB Limited With Biometrics Date of Exam : 10/06/24 Exam# [id number] Ordering Dr: Melinda Bauer HAND WELT BUTTER HAND WELT BUTTER-C PROCEDURE: OB LIMITED WITH BIOMETRICS 10/06/2024 REASON [...] Cervical length measures 3.8 cm. [facility] CC: CHANO Bauer; Dr. Miguel A Pappas MD ~ Crystal Finisher: Signed [facility]04-10-2025 Evaluation note* Diagnosis Onset Date Resolution Status [...] normal first acute December 25, 2024 11:41am [facility] Work Phone: 1(870) 980-703504-10-2025 Evaluation note* Diagnosis Onset Date Resolution Status [...] normal first acute December 28, 2024 12:35pm [facility] Work Phone: 1(578) 258-110603-28-2025 Radiology Diagnostic study note [facility] Services [address] [place] [address] OB Limited With Biometrics MR#: [id number] Acct: [id number] Name: AIDAN PERAZA Rep #: [id number] : 1995 F 29 From: Lex Robb MD PCP: Dr. Miguel A Pappas MD Status: REG CLI Study:OB Limited With Biometrics Date of Exam : 09/08/24 Exam# [id number] Ordering Dr: Katelin Tidwell MD PROCEDURE: OB [...] imaging. Presentation is again breech. Reading Location: [id number] CC: Dr. Miguel A Pappas MD; Dr. Katelin Lazcano MD ~ Crystal Finisher: Signed [facility]03-12-2025 Evaluation note* Diagnosis Onset Date Resolution Status [...] normal first acute November 30, 2024 2:52pm [facility] Work Phone: 1([phone]) [phone] Evaluation note* Diagnosis Onset Date Resolution Status [...] normal first acute December 08, 2024 3:36pm [facility] Work Phone: 1([phone]) 998-685803-12-2025 Evaluation note* Diagnosis Onset Date Resolution Status [...] first acute December 17, 2024 1 :09pm [facility] Work Phone: 1(416) 529-147003-12-2025 Radiology Diagnostic study note [facility] Imaging Services [address] [place] [address] Transvaginal w/Preg US MR#: [id number] Acct: [id number] Name: AIDAN PERAZA Rep #: [id number] : 1995 F 29 From: Brett Pina MD PCP: Dr. Miguel A Pappas MD Status: REG CLI Study:Transvaginal w/Preg US Date of Exam: 08/25/24 Exam# [id number] Ordering Dr: Katelin Tidwell MD PROCEDURE: TRANSVAGINAL [...] 3 mm in transverse dimension. Reading Location: [facility] CC: Dr. Miguel A Pappas MD; Dr. Katelin Lazcano MD ~ Crystal Finisher: Signed [facility]02-24-2025 Radiology Diagnostic study note [facility] Services [address] [place], [place] [address] OB Anatomy w/ Transvaginal MR#: [id number] Acct: [id number] Name: AIDAN PERAZA Rep #: [id number] : 1995 F 29 From: Will Husain DO PCP: Dr. Miguel A Pappas MD Status: REG CLI Study:OB Anatomy w/ Transvaginal Date of Exam : 08/10/24 Exam# [id number] Ordering Dr: Katelin Tidwell MD PROCEDURE: ultrasound. [...] No evidence of placenta previa. Reading Location: [facility] CC: Dr. Miguel A Pappas MD; Dr. Katelin Lazcano MD ~ Crystal Finisher: Signed [facility]02-12-2025 Evaluation note* Diagnosis Onset Date Resolution Status Admit Date FH: Down syndrome acute 2024 9:05am FH: ovarian cancer acute 2024 9:05am Infertility acute July 9:05am acute July 29, 2024 9:05am Supervision of normal first acute July 29 025 9:05am [facility] Work Phone: 1([phone]) [phone] Evaluation note* Diagnosis Onset Date Resolution Status [...] normal first acute August 26, 2024 2:03pm [facility] Work Phone: 1([phone]) [phone] Evaluation note* Diagnosis Onset Date Resolution Status [...] normal first acute September 24, 2024 11:33am [facility] Work Phone: [phone]) [phone] Evaluation note* Diagnosis Onset Date Resolution Status [...] first acute November 20, 2024 8 :06am [facility] Work Phone: Evaluation noteThere may be information available, but it has not been provided by the sender.[facility] [place] [facility] Work Phone: Instructions* Instruction Description Start Date Completed [facility] Work Phone: Progress note Author Gaby Reynolds [facility] Note Date/Time November 20, 2024 8:30a m [facility] [address], [address] [place] [address] OFFICE VISIT Date of Service: 11/20/24 MR#: [id number] Acct: [id number] Name: AIDAN PERAZA Rep #: [id number] : 1995 Provider: MINDY Reynolds Age/Sex: 29/F Location: [facility] [place] Status: Signed Intake Vital Signs 10/21/24 08:19 11/06/24 11:36 11/20/24 08:08 Height 5 ft 9 in 5 ft 9 in 5 ft 9 in Weight: 189 lb 8 oz BMI 28.0 BP 122/68 H Intake Visit Reasons: 34 wk ob Chief Complaint: 34 Week OB Problem Manager Required: No Is patient in pain?: No [...] colon with metastasis Grandfather Myocardial infarction Maternal-2 CT's Social History adopted: No household members: spouse current occupational status: employed current occupation: [employer] current occupational exposures/hazards: No pets and animals: [...] 3-4 times per week duration: 45-60 minutes/day john/church: Buddhist seatbelt use: always do you feel safe at home: Yes 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 Kelvin (3) FH: Down [...] this visit. [place] appropriate handout given. 11/20/24 4934 <Electronically signed by Gaby ivey CNM> Date _ Gaby NORWOODCiara Mortoner Signature: Date (if applicable) CC: ~ [facility] Work Phone: Progress note Author Katelin Lazcano [facility] Note Date/Time December 17, 2024 1:42p [facility] [address], [address] [place] [address] OFFICE VISIT Date of Service: 12/17/24 MR#: [id number] Acct: [id number] Name: AIDAN PERAZA Rep #: [id number] : 1995 Provider: Dr. Landon Lazcano MD Age/Sex: 29/F Location[place] [facility] [place] Status: Signed Intake Vital Signs 11/20/24 08:08 12/08/24 15:44 12/17/24 13:12 Height 5 ft 9 in 5 ft 9 in 5 ft 9 in Weight: 192 lb BMI 28.3 BP 123/73 H Intake Visit Reasons: 38wk ob Problem Manager Required: No Is patient in pain?: No [...] colon with metastasis Grandfather Myocardial infarction Maternal-2 CT's Social History adopted: No household members: spouse current occupational status: employed current occupation: [employer] current occupational exposures/hazards: No pets and animals: [...] 3-4 times per week duration: 45-60 minutes/day john/church: Buddhist seatbelt use: always do you feel safe at home: Yes 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 Kelvin (7) : Status: Acute Qualifiers: Weeks of gestation: 38 weeks Qualified Code(s): Z3A.38 - 38 weeks gestation of Comment: GBS neg, declined genetic & carrier testing, afp screening. 12/17/24 1342 <Electronically signed by Katelin slade MD> Date _ Katelin Lazcano MD Cosigner Signature: Date (if applicable) CC: ~ [facility] [employer] Work Phone: Reason for referral (narrative)No reason for referral information availableWMarymount [facility] Work Phone: Summary Purpose Family History No [...] 2:0 3pm Supervision of normal first Ma [facility] 2024 2:03pm Chief Complaint Admit Date POSITIVE [...] 2:0 3pm Supervision of normal first Ma [facility] 2024 2:03pm Cervical funneling affecting A pril [...] Fe bru2024 9:05am Cervical funneling affecting M [facility] 2024 2:03pm FH: Down syndrome August [...] y 2024 11:35am Cervical funneling affecting [facility] 2024 8:06am 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 November 8:06am FH: Down syndrome November 20, 2024 8:06a m FH: ovarian cancer November 20, 2024 8:06a m Infertility November 20, 2024 8:06a m November 20, 2024 8:06a m Supervision of normal first Ju wa 2024 8:06am Chief Complaint Admit Date ANATOMY [...] y 2024 11:35am Cervical funneling affecting [facility] 2024 8:06am 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 [...] 2:0 3pm Supervision of normal first Ma [facility] 2024 2:03pm Cervical funneling affecting A pril [...] y 2024 11:35am Cervical funneling affecting [facility] 2024 8:06am 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 November 8:06am FH: Down syndrome November 20, 2024 8:06a m FH: ovarian cancer November 20, 2024 8:06a m Infertility November 20, 2024 8:06a m November 20, 2024 8:06a m Supervision of normal first [facility] 2024 8:06am Cervical funneling affecting J [facility] 2024 2:52pm 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 November 302024 2:52pm FH: Down syndrome November 30, 2024 2:52 pm FH: ovarian cancer November 30, 2024 2:52 pm Infertility November 30, 2024 2:52 pm November 30, 2024 2:52 pm Supervision of normal first [facility] 2024 2:52pm Cervical funneling affecting J [facility] 2024 3:36pm 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 December 082024 3:36pm FH: Down syndrome December 08, 2024 3:36 pm FH: ovarian cancer December 08, 2024 3:36 pm Infertility December 08, 2024 3:36 pm December 08, 2024 3:36 pm Supervision of normal first [facility] 2024 3:36pm Chief Complaint Admit Date CHECK [...] y 2024 11:35am Cervical funneling affecting J [facility] 2024 8:06am 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 November 8:06am FH: Down syndrome November 20, 2024 8:06a m FH: ovarian cancer November 20, 2024 8:06a m Infertility November 20, 2024 8:06a m November 20, 2024 8:06a m Supervision of normal first Ju 2024 8:06am Cervical funneling affecting [facility] 2024 2:52pm 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 November 302024 2:52pm FH: Down syndrome November 30, 2024 2:52 pm FH: ovarian cancer November 30, 2024 2:52 pm Infertility November 30, 2024 2:52 pm November 30, 2024 2:52 pm Supervision of normal first Ju wa 2024 2:52pm Cervical funneling affecting [facility] 2024 3:36pm 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 December 082024 3:36pm FH: Down syndrome December 08, 2024 3:36 pm FH: ovarian cancer December 08, 2024 3:36 pm Infertility December 08, 2024 3:36 pm December 08, 2024 3:36 pm Supervision of normal first Ju wa 2024 3:36pm Cervical funneling affecting J [facility] 2024 1:09pm False positive test for [...] section and content) DATE CREATED AUTHOR 06/29/2021 [facility] ([place]) DATE CREATED AUTHOR AUTHOR'S ORGANIZ ATION 12/31/2024 [facility] Reason for Visit (unrecogniz [...] 2024 End: September 24, 2024 Melinda Bauer HAND WELT BUTTER, HAND WELT BUTTER-C Attending Provider Active Start: September 24, 2024 End: September 24, 2024 Team Status: Inactive Member Role Status Dates Dr. Miguel A Pappas MD Primary Care Provider Active Start: October 06, 2024 End: October 06, 2024 Melinda Bauer HAND WELT BUTTER, HAND WELT BUTTER-C Attending Provider Active Start: October 06, 2024 End: October 06, 2024 Melinda Bauer HAND WELT BUTTER, HAND WELT BUTTER-C Referring Provider Active Start: October 06, 2024 End: October 06, 2024 Team Status: Inactive Member Role Status Dates Dr. Miguel A Pappas MD Primary Care Provider Active Start: October 21, 2024 End: October 21, 2024 Dr. Miguel A Pappas MD Referring Provider Active Start: October 21, 2024 End: October 21, 2024 Melinda Bauer HAND WELT BUTTER, HAND WELT BUTTER-C Attending Provider Active Start: October 21, 2024 [...] End: December 08, 2024 Melinda Bauer NP, HAND WELT BUTTER-C Attending Provider Active Start: December 08, 2024 [...] 2024 End: September 24, 2024 Melinda Bauer HAND WELT BUTTER, HAND WELT BUTTER-C Attending Provider Active Start: September 24, 2024 End: September 24, 2024 Team Status: Inactive Member Role/Relationship Status Dates Dr. Miguel A Pappas MD Primary Care Provider Active Start: October 06, 2024 End: October 06, 2024 Melinda Bauer HAND WELT BUTTER, HAND WELT BUTTER-C Attending Provider Active Start: October 06, 2024 End: October 06, 2024 Melinda Bauer HAND WELT BUTTER, HAND WELT BUTTER-C Referring Provider Active Start: October 06, 2024 End: October 06, 2024 Team Status: Inactive Member Role/Relationship Status Dates Dr. Miguel A Pappas MD Primary Care Provider Active Start: October 21, 2024 End: October 21, 2024 Dr. Miguel A Pappas MD Referring Provider Active Start: October 21, 2024 End: October 21, 2024 Melinda Bauer HAND WELT BUTTER, HAND WELT BUTTER-C Attending Provider Active Start: October 21, 2024 [...] End: December 08, 2024 Dr. Miguel A Pappsa MD Referring Provider Active Start: December 08, 2024 End: December 08, 2024 Melinda Bauer HAND WELT BUTTER, HAND WELT BUTTER-C Attending Provider Active Start: December 08, 2024 [...] 2024 End: September 24, 2024 Melinda Bauer HAND WELT BUTTER, HAND WELT BUTTER-C Attending Provider Active Start: September 24, 2024 End: September 24, 2024 Team Status: Inactive Member Role/Relationship Status Dates Dr. Miguel A Pappas MD Primary Care Provider Active Start: October 06, 2024 End: October 06, 2024 Melinda Bauer HAND WELT BUTTER, HAND WELT BUTTER-C Attending Provider Active Start: October 06, 2024 End: October 06, 2024 Melinda Bauer HAND WELT BUTTER, HAND WELT BUTTER-C Referring Provider Active Start: October 06, 2024 End: October 06, 2024 Team Status: Inactive Member Role/Relationship Status Dates Dr. Miguel A Pappas MD Primary Care Provider Active Start: October 21, 2024 End: October 21, 2024 Dr. Miguel A Pappas MD Referring Provider Active Start: October 21, 2024 End: October 21, 2024 Melinda Bauer HAND WELT BUTTER, HAND WELT BUTTER-C Attending Provider Active Start: October 21, 2024 [...] 2024 End: December 08, 2024 Melinda Bauer HAND WELT BUTTER, HAND WELT BUTTER-C Attending Provider Active Start: December 08, 2024 [...] BE BASED ON THE PRIMARY CLINICAL RECORDS. [email or web address] provides no warranty or guarantee of the accuracy or completeness of information in this document.
[2025-01-04] MEDS: Lactated Ringers 1,000 ML 50 ML IV (07:45)
[2025-01-04 07:57] LABS: Hematocrit 34.9 % (37-47); Hemoglobin 12.1 g/dL (12.0-15.0); Immature Granulocytes Count 0.050 X10^3/uL (0.0-0.0); Mean Corp Hgb Conc 34.7 g/dL (32-36); Mean Corpuscular Volume 90.2 fL (81-99); Mean Platelet Vol. 10.3 fl (6.2-12.0); NRBC Flagged by Analyzer 0 % (0-5); Platelet Count 161 K/mm3 (150-450); RBC Distribution Width CV 12.2 % (11.6-14.6); RBC Distribution Width SD 39.7 fl (35.1-43.9); Red Blood Count 3.87 M/mm3 (4.2-5.4); White Blood Count 11.3 K/mm3 (4.4-11.0)
[2025-01-04] MEDS: Oxytocin 15 Units/NS 250ml 15 UNITS/250 ML IV.SOLN 2 UNITS IV (08:00)
[2025-01-04 08:55] LABS: Syphilis Antibodies Nonreactive (Nonreactive)
--- NOTE | 2025-01-04 12:02 | PCM.PN.BLA ---
Progress Note Coping well with contractions current tracing: FHT: 125 Moderate variability reactive no decelerations category I tracing [place]: 2-3 minute Contractions Membranes:AROM at 0830 for clear. 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
[2025-01-04] MEDS: Lactated Ringers 1,000 ML 999 ML IV (14:00)
[2025-01-04] MEDS: Lactated Ringers 1,000 ML 200 ML IV (15:01)
[2025-01-04] MEDS: fentaNYL-bupivacaine (epidural) 100 ML BAG EPIDURAL ×2 (15:14→18:37)
--- NOTE | 2025-01-04 21:36 | EX.PCM.OBVAG ---
Assessment & Plan (1) Vaginal delivery: COMMENT: KW IOL 41.0 Girl Sushma (2) Encounter for induction of labor: (3) 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: COMMENT: confirmatory negative (4) Cervical funneling affecting : QUALIFIERS: Trimester: second trimester Qualified Code(s): O34.32 - Maternal care for cervical incompetence, second trimester COMMENT: stable. (5) FH: ovarian cancer: COMMENT: Maternal Grandmother (6) Infertility: COMMENT: 3 years to conceive (7) FH: Down syndrome: COMMENT: Paternal Aunt (8) Supervision of normal first : QUALIFIERS: Trimester: third trimester Qualified Code(s): Z34.03 - Encounter for supervision of normal first , third trimester COMMENT: [id number], CHAVA 12/28/24 Sushma. Kelvin (9) : QUALIFIERS: Weeks of gestation: 40 weeks Qualified Code(s): Z3A.40 - 40 weeks gestation of COMMENT: GBS neg, declined genetic & carrier testing, afp screening. Maternal Data Information CHAVA Calculator Estimated Delivery Date Method Current WG Current Estimate 12/28/24 Ultrasound #1 41w 0d Final CHAVA: 12/28/24 Final CHAVA Source: [place] >20 weeks Gestational age: 41.0 Vaginal Delivery Maternal Presentation Maternal Presentation: Medically Indicated Induction Maternal Presentation: Presented to unit for induction of labor for postdates Type of Induction: Pitocin and Amniotomy Medical Reason for Induction: Post term Vaginal Delivery Information Procedure Performed: Spontaneous Vaginal Delivery Surgeon/Practitioner: Gaby Reynolds Date of Procedure: 12/28/24 Pre-Procedure Diagnosis: see problem list Post-Procedure Diagnosis: same Type of anesthesia: Epidural Estimated Blood Loss: 500 Time of Delivery: 21:17 Findings Description of procedure: Progressed well to 10cm dilated and made steady progress with effective maternal pushing. Delivered the head in [place] presentation. The head was delivered atraumatically and no nuchal cord was identified. The anterior and posterior shoulders delivered without complication followed by the rest of the and the was placed on the maternal abdomen. Delayed cord clamping was employed for approximately 3 minutes. Cord was clamped and cut and gentle traction was applied to the cord and the placenta delivered spontaneously. Immediately following, it was noted to be intact with a 3 vessel cord. Uterine bleeding brisk IM Methergine given and uterine sweep performed and clots extracted. Ancef ordered. The perineum and vagina were inspected and noted to have a first degree laceration which was repaired with 3-0 Vicryl in the usual fashion. EBL was 500cc. Patient and tolerated delivery well. Apgars 9/9. Dr Verde notified of vaginal delivery and orders reviewed. Physician agrees with current plan of care. Presentation: Vertex Amniotic Membrane Rupture Type: Spontaneous Amniotic Fluid Description: Clear Placental Delivery Description: Spontaneous Placenta Disposition: [facility] Specimen collected: No Cord Vessel Description: 3 Vessels Cord Entanglement: None Infant A Gender: Female (1 minute): 9 (5 minute): 9 Delayed Cord Clamping: Yes Library Technician mobile phone salesperson: No Post Vaginal Deli Medications given after delivery: IV Pitocin and IM Methergin Episiotomy Description: None Laceration: 1st degree Complication Complications: No Multi Select Codes Urinary/Genital Urinary/Genital CPT Codes: 61263 Vaginal Delivery [facility]
--- NOTE | 2025-01-04 21:40 | DCINST_ITS ---
Discharge Instructions DC O2, CPAP, BIPAP needs Home O2 Discharge instructions: No Dressing / Incision Discharge Activity: Return to Normal Activity May resume sexual activity in: 6-8 weeks Dressing / Incision Call your doctor if you observe: Fever of 101 or Higher, Coldness, Increased Pain, Numbness or Tingling, Change in Color, Inability to urinate, Inability to have a bowel movement, Using more than 1 pad per hour, Shortness of breath, Dizziness, Fainting spells, Swelling in the ankles, Chest pain, Increased palpitations (irregular heartbeat), Calf discomfort and Uncontrolled pain Follow Up Care Please Follow Up With: Gaby Reynolds CNM When: Please call the office to schedule your follow up appointment in 6 weeks. If you had high blood pressure please call to schedule an appointment in 2 weeks. Test Results: Test results from this visit will be discussed in further detail at your follow- up appointment, if applicable. Discharge Plan Admission Admit Date/Time: 01/04/25 07:16 Attending Provider: Gaby Reynolds Primary Care Provider: Miguel A Pappas Discharge Orders/Prescriptions Prescriptions: No Action PNV no.[id number] 400 mcg-35 mg- 25 mg-5 mg tablet,chewable PO Referrals / Follow Up: Miguel A Pappas MD [Primary Care Provider] -
[2025-01-04] MEDS: Oxytocin 15 Units/NS 250ml 15 UNITS/250 ML IV.SOLN 83 UNITS IV (21:45)
[2025-01-04] MEDS: Cefazolin 2 GM in 0.9% Normal Saline (100mL Bag) 100 ML IV (22:30)
[2025-01-05] VITALS (10 sets, daily range): BP systolic 102–130; BP diastolic 57–71; PULSE 62–93; RESP 16; TEMP 36.1–36.4; O2SAT 97–98
--- NOTE | 2025-01-05 07:33 | PCM.PN.OB ---
Subjective Subjective Patient doing well without complaints. Tolerating PO. Ambulating and voiding without difficulty. feeding well. Denies chest pain, shortness of breath, calf pain/swelling, fevers, chills, lightheadedness. Objective Data Objective Data Vital Signs: Vital Signs Temp Pulse Resp BP Pulse Ox O2 Del Method 97.1 F L 63 16 102/57 L 98 Room Air 01/05/25 04:00 01/05/25 04:12 01/05/25 04:00 01/05/25 04:12 01/05/25 04:00 01/05/25 04:00 Oxygen Delivery Method Room Air Weight: 191 lb 6 oz Body Mass Index (BMI) 28.2 Intake & Output: Intake and Output for Last 24 Hours 01/03/25 01/04/25 01/05/25 23:59 23:59 23:59 Intake Total 2937.45 / 2937.45 360 / 360 Output Total 950 / 950 500 / 500 Balance 45 / 45 -140 / -140 Lab / Micro Data 01/04/25 07:45 Labs: Laboratory Results - last 24 hr 01/04/25 07:45: WBC 11.3 H, RBC 3.87 L, Hgb 12.1, Hct 34.9 L, MCV 90.2, MCH 31.3, MCHC 34.7, RDW Std Deviation 39.7, RDW Coeff of Reese 12.2, Plt Count 161, MPV 10.3, Immature Gran % (Auto) 0.400, Neut % (Auto) 72.8 H, Lymph % (Auto) 19.1, [place] % (Auto) 6.8, Eos % (Auto) 0.5, Baso % (Auto) 0.4, Absolute Neuts (auto) 8.2 H, Absolute Lymphs (auto) 2.15, Nucleated RBC % 0, Syphilis Total Ab Nonreactive, Blood Type A POSITIVE, Antibody Screen NEGATIVE ROS Constitutional Constitutional: Reports systems reviewed and no addt'l complaints, except as documented Cardiovascular Cardiovascular: Reports systems reviewed and no addt'l complaints, except as documented Respiratory/Chest Respiratory/Chest: Reports systems reviewed and no addt'l complaints, except as documented Gastrointestinal Gastrointestinal: Reports systems reviewed and no addt'l complaints, except as documented Physical Exam Const alert, oriented x3 and no apparent distress HEENT Head and Scalp: atraumatic Resp normal respiratory effort GI soft to palpation and non-tender Bimanual Exam - Vag & Uterus: uterus non-tender Uterus Palpation: uterus fundus firm (below Umbilicus) Assessment & Plan (1) Vaginal delivery: COMMENT: KW IOL 41.0 Girl Sushma PLAN: Plan s/p PPD # 1 1. routine post delivery care 2. breast feeding- support given 3. rh positive 4. rubella immune
[2025-01-05] MEDS: Benzocaine/Lanolin/Aloe Vera 85 GM Spray 1 SPRAY TOPICAL (08:29)
[2025-01-06 03:16] VITALS: BP 99/56; PULSE 72; RESP 16; TEMP 36.3
--- NOTE | 2025-01-06 06:15 | PCM.PN.OB ---
Subjective Subjective Patient doing well without complaints. Tolerating PO. Ambulating and voiding without difficulty. feeding well. Denies chest pain, shortness of breath, calf pain/swelling, fevers, chills, lightheadedness. Objective Data Objective Data Vital Signs: Vital Signs Temp Pulse Resp BP Pulse Ox O2 Del Method 97.4 F L 72 16 99/56 L 97 Room Air 01/06/25 03:16 01/06/25 03:16 01/06/25 03:16 01/06/25 03:16 01/05/25 21:25 01/06/25 03:16 Oxygen Delivery Method Room Air Weight: 191 lb 6 oz Body Mass Index (BMI) 28.2 Intake & Output: Intake and Output for Last 24 Hours 01/04/25 01/05/25 01/06/25 23:59 23:59 23:59 Intake Total 2937.45 / 2937.45 360 / 360 Output Total 950 / 950 1401 / 1401 Balance 45 / 45 -1041 / -1041 Lab / Micro Data 01/04/25 07:45 ROS Constitutional Constitutional: Reports systems reviewed and no addt'l complaints, except as documented Cardiovascular Cardiovascular: Reports systems reviewed and no addt'l complaints, except as documented Respiratory/Chest Respiratory/Chest: Reports systems reviewed and no addt'l complaints, except as documented Gastrointestinal Gastrointestinal: Reports systems reviewed and no addt'l complaints, except as documented Physical Exam Const alert, oriented x3 and no apparent distress HEENT Head and Scalp: atraumatic Resp normal respiratory effort GI soft to palpation and non-tender Bimanual Exam - Vag & Uterus: uterus non-tender Uterus Palpation: uterus fundus firm (below Umbilicus) Assessment & Plan (1) Vaginal delivery: COMMENT: KW IOL 41.0 Girl Sushma PLAN: Plan s/p PPD #2 1. routine post delivery care 2. breast feeding- support given 3. rh positive 4. rubella immune
[2025-01-06 08:03] VITALS: BP 109/63; PULSE 75; RESP 16; TEMP 36.1
[2025-01-06 08:04] VITALS: BP 109/63; PULSE 75
== END 2025-01-06 09:00 | disposition home or self-care (01) | DRG 807 ==
PROVIDERS: Admitting Provider Advanced Practice Midwife; PCP Family Medicine; Referring Provider Advanced Practice Midwife; Visit Provider Advanced Practice Midwife
DX: O48.0 Post-term pregnancy (principal); Z37.0 Single live birth; O70.0 First degree perineal laceration during delivery; Z3A.41 41 weeks gestation of pregnancy; Z82.79 Family history of other congenital malformations, deformations and chromosomal abnormalities
CPT/HCPCS: 59025; 59050; 85025; 86780; 86850; 86900; 86901; 99221; G0378

== ENCOUNTER → 2025-02-17 | Outpatient (CLI) | payer OTHER, SELFPAY | END | disposition home or self-care (01) | LOC: LABSPEC 12:00 | PROVIDERS: PCP Family Medicine; Visit Provider Nurse Practitioner Women's Health | DX: Z12.4 Encounter for screening for malignant neoplasm of cervix (principal) | CPT/HCPCS: 88175; G0145 ==